=== PATIENT | male | born 1940 | race Caucasian/White ===

== ENCOUNTER 2018-01-11 15:22 | Observation (INO) | payer OTHER ==
--- OUTSIDE RECORDS SUMMARY | 2018-01-11 15:28 | XMS REPORT | Clinical Summary ---
:1940 Author Organization [facility] Address [address] [place] [address] Phone Care Team Providers Name Role Phone Unavailable Primary Care Provider Unavailable Allergies Active Allergy Reactions Severity Noted Date Comments Penicillins Rash Low 12/27/2015 As a child Current Medications Prescription Sig. Disp. Refills Start Date End Date Status aspirin 81 MG EC tablet Take 81 mg by Active mouth daily. atorvastatin (LIPITOR) 20 Take 20 mg by Active MG tablet mouth daily. latanoprost (XALATAN) 1 drop nightly. Active 0.005 % ophthalmic solution lisinopril Take 10 mg by Active (PRINIVIL,ZESTRIL) 10 MG mouth daily. tablet ranitidine (ZANTAC) 150 MG Take 150 mg by Active tablet mouth 2 (two) times daily. rivaroxaban (XARELTO) 20 Take by mouth Active mg Tab tablet daily. cetirizine (ZYRTEC) 10 MG Take 10 mg by Active tablet mouth daily. Active Problems Not on file Social History Tobacco Use Types Packs/Day Years Used Date Former Smoker Quit: 12/26/1965 Alcohol Use Drinks/Week oz/Week Comments Yes 7 Glasses of wine 6.0 3 Cans of beer Sex Assigned at Date Recorded Not on file Last Filed Vital Signs Not on file Plan of Treatment Not on file Implants Implanted Type Area Government Affairs Manager Device Expiration Date Model / Identifier Serial / Lot Sclera Left: Eye [employer] 11/15/2016 / Implanted: Qty: 1 on 12/28/2015 by Xiomara Cook MD [place] [id number] / [id number] Results Not on fileafter 01/10/2017
--- OUTSIDE RECORDS SUMMARY | 2018-01-11 15:28 | XMS REPORT | Clinical Summary ---
:1940 Author Organization [facility] Address [address] [place] [address] Care Team Providers Name Role Phone Francisco Multani MD Primary Care Provider Allergies Active Allergy Reactions Severity Noted Date Comments Levofloxacin Other (See Comments) 04/15/2016 Tendon pain Penicillins Rash Low 12/27/2015 As a child Current Medications Prescription Sig. Disp. Refills Start Date End Date Status aspirin (ECOTRIN) 81 MG Take 81 mg by Active enteric coated tablet mouth. atorvastatin (LIPITOR) 20 Take 20 mg by Active MG tablet mouth. cetirizine (ZyrTEC) 10 MG Take 10 mg by Active tablet mouth. latanoprost (XALATAN) 1 drop. Active 0.005 % ophthalmic solution lisinopril Take 10 mg by Active (PRINIVIL,ZESTRIL) 10 mg mouth. tablet ranitidine (ZANTAC) 150 MG Take 150 mg by Active tablet mouth. rivaroxaban (XARELTO) 20 Take by mouth. Active mg tablet loratadine (CLARITIN) 10 Take 10 mg by Active mg tablet mouth daily. Active Problems Not on file Social History Tobacco Use Types Packs/Day Years Used Date Never Smoker Sex Assigned at Date Recorded Not on file Last Filed Vital Signs Not on file Plan of Treatment Health Maintenance Due Date Last Done Comments SHINGRIX VACCINE (#1) 1989 ZOSTER VACCINE 1999 PNEUMOCOCCAL POLYSACCHARIDE VACCINE AGE 65 AND OVER 02/10/2004 PNEUMOCOCCAL-13 02/10/2004 INFLUENZA VACCINE 01/20/2018 Results Not on fileafter 01/10/2017 Insurance Payer Benefit Plan / Group Subscriber ID Type Phone Address AETNA MEDICARE AETNA MEDICARE HMO/PPO [facility] xxxxxxxx HMO Home: [address] [phone] [place] [id number]
--- OUTSIDE RECORDS SUMMARY | 2018-01-11 15:29 | XMS REPORT | Continuity of Care Document ---
:1939 Author Organization Interface Problems Problem Status Onset Classification Date Comments Source Date Reported BRONCHITIS, ACUTE Active Condition 10/30/2014 Medical 015 Group BACK PAIN, CHRONIC Active Condition 10/30/2014 Medical 015 Group BENIGN PAROXYSMAL Active Condition 10/30/2014 Medical POSITIONAL VERTIGO 014 Group BODY MASS INDEX Active Condition 10/30/2014 Medical 26.0-26.9, ADULT 014 Group WOUND, FOOT Inactive Condition 10/30/2014 Medical 014 Group USP MEDICATION Active Condition 10/30/2014 Medical USE NEC 014 Group DERMATITIS, CONTACT, Inactive Condition 10/30/2014 Medical NOS 014 Group ATRIAL FIBRILLATION Active Condition 10/30/2014 Medical 013 Group ABDOMINAL PAIN, Inactive Condition 10/30/2014 Medical GENERALIZED 013 Group HYPERTENSION Active Condition 02/18/2013 [facility] ALLERGIC RHINITIS Active Condition 02/18/2013 [facility] CARCINOMA, PROSTATE Active Condition 10/30/2014 Medical 012 Group CORONARY Active Condition 10/30/2014 Medical ATHEROSCLEROSIS OF 960 Group [place] CORONARY ARTERY HYPERTENSIVE HEART Active Condition 10/30/2014 Medical DISEASE, BENIGN, 960 Group WITHOUT HEART FAILURE GERD Active Condition 02/18/2013 [facility] GREATER TROCHANTERIC Active Condition 02/18/2013 [facility] BURSITIS, LEFT [facility] GREATER TROCHANTERIC Active Condition 02/18/2013 [facility] BURSITIS, RIGHT [facility] HIP PAIN, BILATERAL Active Condition 02/18/2013 [facility] LATERAL MENISCUS TEAR, Active Condition 02/18/2013 [facility] NECK PAIN Active Condition 02/18/2013 [facility] BACK PAIN, LUMBAR Active Condition 02/18/2013 [facility] OSTEOARTHRITIS, HIPS, Active Condition 02/18/2013 [facility] BILATERAL [facility] KNEE PAIN, LEFT Active Condition 02/18/2013 [facility] MUSCLE STRAIN, RIGHT Active Condition 02/18/2013 [facility] KNEE PAIN, RIGHT Active Condition 02/18/2013 [facility] OSTEOARTHRITIS, KNEE, Active Condition 02/18/2013 [facility] LUMBAR RADICULOPATHY, Active Condition 02/18/2013 [facility] CAD Inactive Condition 10/30/2014 Medical Group HYPERCHOLESTEROLEMIA Active Condition 10/30/2014 [facility] ESSENTIAL HYPERTENSION Active Condition 10/30/2014 Medical Group CORONARY HEART DISEASE Active Condition 02/15/2014 Medical Group HYPERTENSION Active Condition 02/15/2014 Medical Group Medications Medication Details Route Status Patient Ordering Order Source Instructions Provider Date LEVAQUIN 500 MG TABS 1 tablet PO Active daily for 10 2014 Medical days Group CHERATUSSIN AC 100-10 10 ml PO Active MG/5ML SYRP every 12 2014 Medical hours PRN Group cough BENZONATATE 100 MG 1-2 capsules Active CAPS PO TID PRN 2015 Medical cough Group NITROSTAT 0.3 MG SUBL 1 sl q5min Active prn chest 2015 Medical pain Group LOTRISONE 1-0.05 % apply to No Longer CREA rash bid Active 2013 Medical Group METOPROLOL SUCCINATE TAKES ONE Active ER 25 MG [id number] TAB DAILY PO 2013 Medical Group LORADAMED 10 MG TABS ONE TAB No Longer DAILY PO FOR Active 2013 Medical ALLERGYS Group METOPROLOL SUCCINATE TAKES ONE No Longer ER 25 MG [id number] TAB DAILY PO Active 2014 Medical Group SOTALOL HCL 80 MG ONE PO BID No Longer TABS Active 2013 Medical Group XARELTO 20 MG TABS one daily Active 2012 Medical Group POTASSIUM CHLORIDE 20 1 tablespoon No Longer MEQ/15ML (10%) SOLN daily mixed Active 2012 Medical in juice Group XALATAN 0.005 % SOLN 1 gtt both Active eyes qd 2012 Medical Group GABAPENTIN 300 MG 1 po tid No Longer CAPS Active 2012 Medical Group TIZANIDINE HCL 4 MG 1 po qhs No Longer CAPS Active 2013 Medical Group TIZANIDINE HCL 4 MG 1 po qhs No Longer CAPS Active 2013 Medical Group GABAPENTIN 300 MG 1 po tid No Longer CAPS Active 2013 Medical Group GABAPENTIN 300 MG 1 po tid No Longer CAPS Active 2013 Medical Group CELEBREX 200 MG CAPS 1 PO QD Active 11/01/ [facility] 2013 [facility] ATENOLOL 50 MG TABS No Longer Active 2013 Medical Group ATENOLOL 50 MG TABS No Longer Active 2013 Medical Group ATENOLOL 50 MG TABS No Longer Active 2013 Medical Group ECOTRIN LOW STRENGTH one every Active 81 MG TBEC other day 2013 Medical Group CLARITIN 10 MG TABS one daily if Active needed 2013 Medical Group CLARITIN 10 MG TABS one daily if Active needed 2013 Medical Group DUEXIS 800-26.6 MG 1 po q 8 hrs Inactive 05/04/ [facility] TABS prn pain 2012 [facility] FLEXERIL 10 MG TABS 1 PO TID prn Inactive 05/04/ [facility] muscle spasm 2012 [facility] DUEXIS 800-26.6 MG 1 po q 8 hrs Inactive [facility] TABS prn pain 2012 [facility] FLEXERIL 10 MG TABS 1 PO TID prn Inactive [facility] muscle spasm 2012 [facility] ALEVE 220 MG TABS one po BID No Longer Active 2011 Medical Group LISINOPRIL TABS per other Active 03/17/ [facility] Pina 2012 [facility] HYDROCHLOROTHIAZIDE per other Active 03/17/ [facility] FELICIANO M.D. 2012 [facility] RANITIDINE HCL 150 MG per other Active 03/17/ [facility] FELICIANO M.D. 2012 [facility] ATORVASTATIN CALCIUM per other Active 03/17/ [facility] TABS M.Ashanti 2012 [facility] CALCIUM TABS per other Active 03/17/ [facility] Pina 2012 [facility] ASPIRIN EC LOW DOSE per other Active 03/17/ [facility] 81 MG TBEC M.D. 2012 [facility] UNKNOWN ALLERGY OTC Active 03/17/ [facility] MEDICATION 2012 [facility] LISINOPRIL TABS per other Active 03/17/ Michael MRene 2012 [facility] HYDROCHLOROTHIAZIDE per other Active 03/17/ [facility] CAPS M.Ashanti 2012 [facility] RANITIDINE HCL 150 MG per other Active 03/17/ [facility] CAPS M.[place] 2012 [facility] ATORVASTATIN CALCIUM per other Active Michael TABS M.D. 2012 [facility] CALCIUM TABS per other Active 03/17/ [facility] M.Ashanti 2012 [facility] ASPIRIN EC LOW DOSE per other Active [facility] 81 MG TBEC M.D. 2012 [facility] UNKNOWN ALLERGY OTC Active Michael MEDICATION 2012 [facility] RANITIDINE HCL 150 MG 1 tab twice Active TABS daily Medical Group LIPITOR 20 MG TABS 1 tab daily Active Medical Group LISINOPRIL-HYDROCHLOR 1 tab daily Active OTHIAZIDE 20-12.5 MG Medical TABS Group LISINOPRIL-HYDROCHLOR 1 tab daily Active OTHIAZIDE 20-12.5 MG Medical TABS Group RANITIDINE HCL 150 MG 1 tab twice Active TABS daily Medical Group LISINOPRIL-HYDROCHLOR 1 tab daily Active OTHIAZIDE 20-12.5 MG Medical TABS Group RANITIDINE HCL 150 MG 1 tab twice Active TABS daily Medical Group Allergies, Adverse Reactions, Alerts Substance Category Reaction Severity Reaction Status Date Comments Source type Reported PENICILLIN Drug PENICILLIN [place] allergy 2 [facility] SEASONAL Environment SEASONAL [place] ALLERGIES al allergy ALLERGIES 2 [facility] CIPRO Drug CIPRO allergy 3 Medical Group FLUOROQUINOL Drug FLUOROQUINO [place] ONES allergy LONES [facility] ZETIA Drug ZETIA allergy Medical Group CRESTOR Drug CRESTOR allergy Medical Group PCN Drug PCN allergy Medical Group Immunizations Immunization Date Given Site Status Last Comments Source Updated dT (Diphtheria 03/06/2014 completed Medical and Tetanus) Group immunization for children, #1 dT (Diphtheria 03/06/2014 completed Medical and Tetanus) Group booster given influenza 04/23/2013 completed Medical immunization (Flu Group Vax) has been administered heptavalent 02/18/2013 completed [place] pneumococcal [facility] conjugate vaccine (7-valent) #1 heptavalent 02/18/2013 completed [place] pneumococcal [facility] conjugate vaccine (7-valent) #2 heptavalent 11/22/2012 completed [facility] pneumococcal [facility] conjugate vaccine (7-valent) #1 heptavalent 11/22/2012 completed [facility] pneumococcal [facility] conjugate vaccine (7-valent) #2 heptavalent 11/01/2012 completed [facility] pneumococcal [facility] conjugate vaccine (7-valent) #1 heptavalent 11/01/2012 completed [place] pneumococcal [facility] conjugate vaccine (7-valent) #2 influenza 03/31/2012 completed Medical immunization (Flu Group Vax) has been administered Results Order Name Results Value Reference Date Interpretation Comments Source Range Chemistry SODIUM 138 135 - 143 09/25/ mmol/L 2014 Medical Group Chemistry POTASSIUM 3.9 3.3 - 5.0 09/25/ mmol/L 2014 Medical Group Chemistry ALBUMIN 3.9 3.5 - 5.0 09/25/ g/dL 2014 Medical Group Chemistry CALCIUM 9.3 8.6 - 9.8 mg/dL 2014 Medical Group Chemistry CREATININE 1.07 0.46 - 1.20 mg/dL 2014 Medical Group Chemistry BUN 15 10 - 22 mg/dL 2014 Medical Group Chemistry ALK PHOS 83 U/L 32 - 96 2014 Medical Group Chemistry SGOT (AST) 25 U/L 10 - 42 2014 Medical Group Chemistry SGPT (ALT) 21 U/L 11 - 43 2014 Medical Group Chemistry CHOLESTEROL 140 120 - 200 mg/dl 2014 Medical Group Chemistry HDL 42 26 - 62 mg/dl 2014 Medical Group Chemistry LDL 74 0 - 130 mg/dl 2014 Medical Group Chemistry SODIUM 140 135 - 143 03/23/ [facility] mmol/L 2013 Medical Group Chemistry POTASSIUM 4.0 3.3 - 5.0 03/23/ MH mmol/L 2013 Medical Group Chemistry ALBUMIN 3.7 3.5 - 5.0 03/23/ MH g/dL 2013 Medical Group Chemistry CALCIUM 9.5 8.6 - 9.8 03/23/ MH mg/dL 2013 Medical Group Chemistry CREATININE 0.82 0.46 - 1.20 03/23/ MH mg/dL 2013 Medical Group Chemistry BUN 14 10 - 22 03/23/ MH mg/dL 2013 Medical Group Chemistry ALK PHOS 65 U/L 32 - 96 2013 Medical Group Chemistry SGOT (AST) 23 U/L 10 - 42 2013 Medical Group Chemistry SGPT (ALT) 15 U/L 11 - 43 2013 Medical Group Chemistry CHOLESTEROL 139 120 - 200 mg/dl 2013 Medical Group Chemistry HDL 47 26 - 62 mg/dl 2013 Medical Group Chemistry LDL 79 0 - 130 mg/dl 2013 Medical Group Chemistry TSH 2.23 0.34 - 5.60 uIU/mL 2013 Medical Group Hematology HGB 13.4 12.3 - 17.3 g/dL 2013 Medical Group Hematology HCT 39.6 % 36.7 - 50.5 2013 Medical Group Chemistry TRIGLYCERIDE 104 mg/dl 2013 Medical Group Chemistry LDL 93 09/22/ mg/dl 2013 Medical Group Chemistry TRIGLYCERIDE 104 09/22/ mg/dl 2013 Medical Group Chemistry LDL 93 09/22/ mg/dl 2013 Medical Group Chemistry SODIUM 139 135 - 143 mmol/L 2013 Medical Group Chemistry POTASSIUM 3.7 3.3 - 5.0 09/22/ mmol/L 2013 Medical Group Chemistry SODIUM 139 135 - 143 09/22/ mmol/L 2013 Medical Group Chemistry POTASSIUM 3.7 3.3 - 5.0 09/22/ mmol/L 2013 Medical Group Chemistry ALBUMIN 4.0 3.5 - 5.0 g/dL 2013 Medical Group Chemistry CALCIUM 9.5 8.6 - 9.8 mg/dL 2013 Medical Group Chemistry CREATININE 0.86 0.46 - 1.20 mg/dL 2013 Medical Group Chemistry BUN 18 10 - 22 mg/dL 2013 Medical Group Chemistry ALK PHOS 85 U/L 32 - 96 2013 Medical Group Chemistry SGOT (AST) 21 U/L 10 - 42 2013 Medical Group Chemistry SGPT (ALT) 15 U/L 11 - 43 2013 Medical Group Chemistry CHOLESTEROL 154 120 - 200 mg/dl 2013 Medical Group Chemistry HDL 40 26 - 62 mg/dl 2013 Medical Group Chemistry SODIUM 139 135 - 143 mmol/L 2012 Medical Group Chemistry POTASSIUM 3.7 3.3 - 5.0 mmol/L 2012 Medical Group Chemistry SODIUM 139 135 - 143 mmol/L 2012 Medical Group Chemistry POTASSIUM 3.7 3.3 - 5.0 mmol/L 2012 Medical Group Chemistry ALBUMIN 4.0 3.5 - 5.0 g/dL 2012 Medical Group Chemistry CALCIUM 9.5 8.6 - 9.8 mg/dL 2012 Medical Group Chemistry CREATININE 0.86 0.46 - 1.20 mg/dL 2012 Medical Group Chemistry BUN 18 10 - 22 mg/dL 2012 Medical Group Chemistry ALK PHOS 85 U/L 32 - 96 2012 Medical Group Chemistry SGOT (AST) 21 U/L 10 - 42 2012 Medical Group Chemistry SGPT (ALT) 15 U/L 11 - 43 2012 Medical Group Chemistry CHOLESTEROL 154 120 - 200 mg/dl 2012 Medical Group Chemistry HDL 40 26 - 62 mg/dl 2012 Medical Group Chemistry PSA 4.3 ng/mL 2010 Medical Group Chemistry PSA 4.3 ng/mL 2010 Medical Group Vital Signs Vital Sign Value Date Comments Source Weight 208 10/30/2014 Medical Group Temperature Oral (F) 99.1 F 10/30/2014 Medical Group Respitory Rate 16 10/30/2014 Medical Group Systolic (mm Hg) 116 10/30/2014 Medical Group Diastolic (mm Hg) 79 10/30/2014 Medical Group Heart Rate 88 10/30/2014 Medical Group Weight 203 10/02/2014 Medical Group Temperature Oral (F) 97 F 10/02/2014 Medical Group Heart Rate 60 10/02/2014 Medical Group Systolic (mm Hg) 120 10/02/2014 Medical Group Diastolic (mm Hg) 70 10/02/2014 Medical Group Weight 191 06/07/2014 Medical Group Temperature Oral (F) 98.0 F 06/07/2014 Medical Group Systolic (mm Hg) 140 06/07/2014 Medical Group Diastolic (mm Hg) 80 06/07/2014 Medical Group Heart Rate 72 06/07/2014 Medical Group Respitory Rate 12 06/07/2014 Medical Group Weight 197 03/31/2014 Medical Group Temperature Oral (F) 97 F 03/31/2014 Medical Group Heart Rate 64 03/31/2014 [facility] Systolic (mm Hg) 130 03/31/2014 [facility] Diastolic (mm Hg) 70 03/31/2014 Medical Group Weight 198.8 03/06/2014 Medical Group Temperature Oral (F) 97.3 F 03/06/2014 Medical Group Respitory Rate 16 03/06/2014 Medical Group Heart Rate 60 03/06/2014 [facility] Systolic (mm Hg) 132 03/06/2014 [facility] Diastolic (mm Hg) 84 03/06/2014 Medical Group Weight 199 02/13/2014 Medical Group Temperature Oral (F) 97 F 02/13/2014 Medical Group Heart Rate 60 02/13/2014 [facility] Systolic (mm Hg) 140 02/13/2014 [facility] Diastolic (mm Hg) 70 02/13/2014 Medical Group Weight 204 09/29/2013 Medical Group Heart Rate 60 09/29/2013 Medical Group Systolic (mm Hg) 130 09/29/2013 Medical Group Diastolic (mm Hg) 60 09/29/2013 Medical Group Weight 199.2 06/27/2013 Medical Group Respitory Rate 18 06/27/2013 Medical Group Systolic (mm Hg) 126 06/27/2013 Medical Group Diastolic (mm Hg) 70 06/27/2013 Medical Group Heart Rate 60 06/27/2013 Medical Group Weight 194 05/30/2013 Medical Group Systolic (mm Hg) 130 05/30/2013 Medical Group Diastolic (mm Hg) 80 05/30/2013 Medical Group Heart Rate 52 05/30/2013 Medical Group Weight 194 03/31/2013 Medical Group Heart Rate 64 03/31/2013 [facility] Systolic (mm Hg) 120 03/31/2013 Medical Group Diastolic (mm Hg) 70 03/31/2013 Medical Group Weight 217 09/22/2012 Medical Group Heart Rate 68 09/22/2012 Medical Group Systolic (mm Hg) 140 09/22/2012 [facility] Diastolic (mm Hg) 68 09/22/2012 Medical Group Weight 210.4 08/13/2012 Medical Group Temperature Oral (F) 98 F 08/13/2012 Medical Group Respitory Rate 16 08/13/2012 Medical Group Heart Rate 72 08/13/2012 Medical Group Systolic (mm Hg) 140 08/13/2012 Medical Group Diastolic (mm Hg) 80 08/13/2012 Medical Group Weight 212 07/12/2012 Medical Group Heart Rate 60 07/12/2012 Medical Group Systolic (mm Hg) 140 07/12/2012 Medical Group Diastolic (mm Hg) 80 07/12/2012 Medical Group Height 72 03/18/2012 [facility] Weight 200 03/18/2012 [facility] Heart Rate 52 03/18/2012 [facility] Systolic (mm Hg) 140 03/18/2012 [facility] Diastolic (mm Hg) 69 03/18/2012 [facility] Height 72 03/11/2012 Medical Group Weight 202 03/11/2012 Medical Group Heart Rate 64 03/11/2012 Medical Group Systolic (mm Hg) 130 03/11/2012 Medical Group Diastolic (mm Hg) 64 03/11/2012 Medical Group Encounters Location Location Encounter Encounter Reason Attending ADM IA Status Source Details Type Number For Provider Date Date Visit [place] [facility] [id number] Wayne 03/18 03/18 [place] [facility] Visit 6450 Darya DOE /2011 [facility] [place] [facility] [id number] Wayne 05/04 05/04 [place] [facility] Visit 7580 Darya DOE /2011 [facility] [place] [facility] [id number] Wayne 11/01 11/01 [place] [facility] Visit 6640 Darya DOE [facility] [place] [facility] [id number] Wayne 11/22 11/22 [place] [facility] Visit 7230 Darya DOE [facility] [place] [facility] [id number] Wayne 02/18 02/18 [place] [facility] Visit 6660 Darya DOE [facility] Office [id number] Francisco 02/13 02/13 [facility] Medical Visit 8360 Nerissa, Medical Abran Castro MD Group Internal Med [facility] Lab Report [id number] Francisco 02/15 02/15 [place] 1410 [address]er[address], Medical [facility] [place] [facility] [id number] Art 03/06 03/06 [place] Medical Visit 2110 Dominic, /2013 Rena Burks MD [facility] Lab Report [id number] Art 03/23 03/23 [place] Medical 0560 Hugodul[address]etter, /2013 Medical Abran Castro MD Group Internal Med [facility] South Office [id number] Art 03/31 03/31 [place] Medical Visit 4290 Dominic, /2013 Medical Abran Castro MD Group Internal Med [facility] Office [id number] Art 06/07 06/07 [place] Medical Visit 7080 Dominic, /2013 Medical Andrew DOE Group Cardiology [facility] Lab Report [id number] Art 09/25 09/25 [place] Medical 9310 Dominic, /2014 Medical Abran Castro MD Group Internal Med [facility] Office [id number] Francisco 10/02 10/02 [place] Medical Visit 5670 Nerissa, /2014 Medical Abran Castro MD [facility] Office [id number] Laure 10/30 10/30 [place] Medical Visit 7470 WARNER Trinh /2014 Rena URIOSTEGUI-C [facility] Procedures Procedure Code Date Perfomer Comments Source smoking/tobacco 14 10/02/2014 yes Medical cessation, patient Group education and counseling smoking/tobacco 14 06/07/2014 yes Medical cessation, patient Group education and counseling smoking/tobacco 14 03/31/2014 yes Medical cessation, patient Group education and counseling smoking/tobacco 14 03/06/2014 yes Medical cessation, patient Group education and counseling genitourinary review [id number] 05/04/2012 denies loss of [facility], E&M urine,frequent & Joint urination,nigh t time urination,pain ful urination,bloo d in urine, or kidney stones genitourinary review [id number] 03/18/2012 denies loss of [facility], E&M urine,frequent & Joint urination,nigh t time urination,pain ful urination,bloo d in urine, or kidney stones genitourinary review [id number] 03/17/2012 denies loss of [facility], E&M urine,frequent & Joint urination,nigh t time urination,pain ful urination,bloo d in urine, or kidney stones
--- OUTSIDE RECORDS SUMMARY | 2018-01-11 15:30 | XMS REPORT | Continuity of Care Document ---
:1940 Author Organization [facility] Care Team Providers Name Role Phone Wayne Lackey MD Unavailable Insurance Providers Payer name Policy type / Coverage type Policy ID Covered democrat ID Policy Lopez [employer] Medicare Encounters Encounter Performer Location Date Office Visit Wayne Lackey MD [facility] Nov 22, 2012 Allergies, Adverse Reactions, Alerts Type Substance Reaction Status Drug allergy PENICILLIN Active Environmental allergy SEASONAL ALLERGIES Active Drug allergy FLUOROQUINOLONES Active Problems Problem Effective Dates Problem Status HYPERTENSION Mar 17, 2012 Active HYPERCHOLESTEROLEMIA Mar 17, 2012 Active ALLERGIC RHINITIS Mar 17, 2012 Active GERD Active GREATER TROCHANTERIC BURSITIS, LEFT Active GREATER TROCHANTERIC BURSITIS, RIGHT Active HIP PAIN, BILATERAL Active LATERAL MENISCUS TEAR, LEFT Active NECK PAIN Active BACK PAIN, LUMBAR Active OSTEOARTHRITIS, HIPS, BILATERAL Active KNEE PAIN, LEFT Active MUSCLE STRAIN, RIGHT CALF Active KNEE PAIN, RIGHT Active OSTEOARTHRITIS, KNEE, RIGHT Active Medications Medication Instructions Start Date Status LISINOPRIL TABS per other M.D. Mar 17, 2012 Active HYDROCHLOROTHIAZIDE CAPS per other M.D. Mar 17, 2012 Active RANITIDINE HCL 150 MG CAPS per other M.D. Mar 17, 2012 Active ATORVASTATIN CALCIUM TABS per other M.D. Mar 17, 2012 Active CALCIUM TABS per other M.D. Mar 17, 2012 Active ASPIRIN EC LOW DOSE 81 MG TBEC per other M.D. Mar 17, 2012 Active UNKNOWN ALLERGY MEDICATION OTC Mar 17, 2012 Active DUEXIS 800-26.6 MG TABS 1 po q 8 hrs prn pain May 04, 2012 Inactive FLEXERIL 10 MG TABS 1 PO TID prn muscle spasm May 04, 2012 Inactive CELEBREX 200 MG CAPS 1 PO QD November 01, 2012 Active Immunizations Vaccine Date Status heptavalent pneumococcal conjugate vaccine (7-valent) #1 November 01, 2012 completed heptavalent pneumococcal conjugate vaccine (7-valent) #2 November 01, 2012 completed heptavalent pneumococcal conjugate vaccine (7-valent) #1 Nov 22, 2012 completed heptavalent pneumococcal conjugate vaccine (7-valent) #2 Nov 22, 2012 completed Vital Signs Date Description Test Result Mar 18, 2012 height E&M - 8302-2 HEIGHT 72 in Mar 18, 2012 weight E&M - 3141-9 WEIGHT 200 lb Mar 18, 2012 pulse rate E&M - 8867-4 PULSE RATE 52 /min Mar 18, 2012 blood pressure, systolic - 8480-6 BP SYSTOLIC 140 mm Hg Mar 18, 2012 blood pressure, diastolic - 8462-4 BP DIASTOLIC 69 mm Hg
--- OUTSIDE RECORDS SUMMARY | 2018-01-11 15:30 | XMS REPORT | Continuity of Care Document ---
:1940 Author Organization [facility] Care Team Providers Name Role Phone Wayne Lackey MD Unavailable Insurance Providers Payer name Policy type / Coverage type Policy ID Covered alliance party ID Policy Lopez Aetna Medicare Encounters Encounter Performer Location Date Office Visit Wayne Lackey MD [place] [facility] Feb 18, 2013 Allergies, Adverse Reactions, Alerts Type Substance Reaction [...] PAIN, RIGHT Active OSTEOARTHRITIS, KNEE, RIGHT Active LUMBAR RADICULOPATHY, RIGHT Active Medications Medication Instructions Start Date [...] vaccine (7-valent) #2 Nov 22, 2012 completed heptavalent pneumococcal conjugate vaccine (7-valent) #1 Feb 18, 2013 completed heptavalent pneumococcal conjugate vaccine (7-valent) #2 Feb 18, 2013 completed Vital Signs Date Description Test Result [...]
--- OUTSIDE RECORDS SUMMARY | 2018-01-11 15:30 | XMS REPORT | Continuity of Care Document ---
:1939 Author Organization [facility] Care Team Providers Name Role Phone MD Multani John Unavailable Unavailable Insurance Providers Payer name Policy type / Policy ID Covered republican ID Policy Lopez Coverage type AETNA SECONDARY TO MEDICARE MEDICARE PRIMARY MEDIC[place] [employer] AETNA (MEDICARE SUPPLEMENT) AETNA (MEDICARE SUPPLEMENT) [place] AETNA (MEDICARE SUPPLEMENT) AETNA (MEDICARE SUPPLEMENT) AETNA (MEDICARE REPLACEMENT HMO) [place]: [employer] AETNA (MEDICARE SUPPLEMENT) AETNA (MEDICARE REPLACEMENT HMO) AETNA (MEDICARE REPLACEMENT PPO) [place]: [place] AETNA (MEDICARE SUPPLEMENT) AETNA (MEDICARE REPLACEMENT PPO) [place]: [place] AETNA (MEDICARE SUPPLEMENT) [place]: [place] AETNA (MEDICARE SUPPLEMENT) [place]: [employer] AETNA (MEDICARE SUPPLEMENT) [place]: [employer] AETNA (MEDICARE REPLACEMENT HMO) AETNA (MEDICARE SUPPLEMENT) MEDIC[place]: [employer] AETNA (MEDICARE REPLACEMENT HMO) AETNA (MEDICARE SUPPLEMENT) MEDIC[place]: [employer] AETNA (MEDICARE REPLACEMENT HMO) AETNA (MEDICARE SUPPLEMENT) [place]IC[place]: [employer] AETNA (MEDICARE REPLACEMENT HMO) AETNA (MEDICARE SUPPLEMENT) MEDIC[place]: [employer] AETNA (MEDICARE REPLACEMENT HMO) AETNA (MEDICARE SUPPLEMENT) MEDIC[place]: [employer] AETNA (MEDICARE REPLACEMENT HMO) AETNA (MEDICARE SUPPLEMENT) [place]: [employer] AETNA (MEDICARE REPLACEMENT HMO) AETNA (MEDICARE SUPPLEMENT) [place]IC[place]: [employer] AETNA (MEDICARE REPLACEMENT HMO) AETNA (MEDICARE SUPPLEMENT) [place]: [employer] AETNA (MEDICARE REPLACEMENT HMO) AETNA (MEDICARE SUPPLEMENT) Encounters Encounter Performer Location Date Lab Report Francisco Multani MD [facility] - Feb 15, 2014 [place] Allergies, Adverse Reactions, Alerts Type Substance Reaction Status Drug allergy ZETIA achy Active Drug allergy CRESTOR achy Active Drug allergy CIPRO Inactive Drug allergy PCN rash as a child Active Problems Problem Effective Dates Problem Status CAD Active HYPERCHOLESTEROLEMIA Active ESSENTIAL HYPERTENSION Active CARCINOMA, PROSTATE Mar 11, 2012 Active CORONARY HEART DISEASE Active HYPERTENSION Active ABDOMINAL PAIN, GENERALIZED Aug 13, 2012 Active ATRIAL FIBRILLATION May 17, 2013 Active DERMATITIS, CONTACT, NOS Feb 13, 2014 Active Procedures Date Description Comments Mar 11, 2012 smoking status former smoker May 30, 2013 smoking status former smoker Jun 27, 2013 smoking status former smoker Feb 13, 2014 smoking status Former smoker Medications Medication Instructions Start Date Status RANITIDINE HCL 150 MG TABS 1 tab twice daily Active LIPITOR 20 MG TABS 1 tab daily Active LISINOPRIL-HYDROCHLOROTHIAZIDE 1 tab daily Active 20-12.5 MG TABS ATENOLOL 50 MG TABS Inactive ECOTRIN LOW STRENGTH 81 MG TBEC one every other day Jun 23, 2012 Active CLARITIN 10 MG TABS one daily if needed Jun 23, 2012 Active XALATAN 0.005 % SOLN 1 gtt left eye qd Mar 31, 2013 Active ALEVE 220 MG TABS one po BID Apr 23, 2012 Inactive XARELTO 20 MG TABS one daily May 24, 2013 Active POTASSIUM CHLORIDE 20 MEQ/15ML 1 tablespoon daily mixed in May 24, 2013 Inactive (10%) SOLN juice SOTALOL HCL 80 MG TABS ONE PO BID Jun 27, 2013 Active GABAPENTIN 300 MG CAPS 1 po tid Mar 31, 2013 Inactive TIZANIDINE HCL 4 MG CAPS 1 po qhs Mar 31, 2013 Inactive METOPROLOL SUCCINATE ER 25 MG TAKES ONE TAB DAILY PO Sep 29, 2013 Active [id number] LORADAMED 10 MG TABS ONE TAB DAILY PO FOR ALLERGYS Sep 29, 2013 Active LOTRISONE 1-0.05 % CREA apply to rash bid Feb 13, 2014 Active Immunizations Vaccine Date Status influenza immunization (Flu Vax) has been administered Mar 31, 2012 completed influenza immunization (Flu Vax) has been administered Apr 23, 2013 completed Vital Signs Date Description Test Result Mar 11, 2012 height E&M HEIGHT 72 in Mar 11, 2012 weight E&M WEIGHT 202 lb Mar 11, 2012 pulse rate E&M PULSE RATE 64 /min Mar 11, 2012 blood pressure, systolic BP SYSTOLIC 130 mm Hg Mar 11, 2012 blood pressure, diastolic BP DIASTOLIC 64 mm Hg Jul 12, 2012 weight E&M WEIGHT 212 lb Jul 12, 2012 pulse rate E&M PULSE RATE 60 /min Jul 12, 2012 blood pressure, systolic, sitting, right arm BP SYS SIT R 140 null Jul 12, 2012 blood pressure, diastolic, sitting, right arm BP VILLA SIT R 80 mmHg Jul 12, 2012 blood pressure, systolic, sitting, left arm BP SYS SIT L 140 mm Hg Jul 12, 2012 blood pressure, diastolic, sitting, left arm BP VILLA SIT L 80 mm Hg Jul 12, 2012 blood pressure, systolic BP SYSTOLIC 140 mm Hg Jul 12, 2012 blood pressure, diastolic BP DIASTOLIC 80 mm Hg Aug 13, 2012 weight E&M WEIGHT 210.4 lb Aug 13, 2012 temperature E&M TEMPERATURE 98 deg f Aug 13, 2012 respiratory rate E&M RESP RATE 16 /min Aug 13, 2012 pulse rate E&M PULSE RATE 72 /min Aug 13, 2012 blood pressure, systolic BP SYSTOLIC 140 mm Hg Aug 13, 2012 blood pressure, diastolic BP DIASTOLIC 80 mm Hg Sep 22, 2012 weight E&M WEIGHT 217 lb Sep 22, 2012 pulse rate E&M PULSE RATE 68 /min Sep 22, 2012 blood pressure, systolic BP SYSTOLIC 140 mm Hg Sep 22, 2012 blood pressure, diastolic BP DIASTOLIC 68 mm Hg Mar 31, 2013 weight E&M WEIGHT 194 lb Mar 31, 2013 pulse rate E&M PULSE RATE 64 /min Mar 31, 2013 blood pressure, systolic BP SYSTOLIC 120 mm Hg Mar 31, 2013 blood pressure, diastolic BP DIASTOLIC 70 mm Hg May 30, 2013 weight E&M WEIGHT 194 lb May 30, 2013 blood pressure, systolic, sitting, left arm BP SYS SIT L 130 mm Hg May 30, 2013 blood pressure, diastolic, sitting, left arm BP VILLA SIT L 80 mm Hg May 30, 2013 pulse rate, sitting, left PULSE SIT L 52 /min May 30, 2013 blood pressure, systolic BP SYSTOLIC 130 mm Hg May 30, 2013 pulse rate E&M PULSE RATE 52 /min May 30, 2013 blood pressure, diastolic BP DIASTOLIC 80 mm Hg Jun 27, 2013 weight E&M WEIGHT 199.2 lb Jun 27, 2013 respiratory rate E&M RESP RATE 18 /min Jun 27, 2013 blood pressure, systolic, sitting, right arm BP SYS SIT R 126 null Jun 27, 2013 blood pressure, diastolic, sitting, right arm BP VILLA SIT R 70 mmHg Jun 27, 2013 blood pressure, systolic, sitting, left arm BP SYS SIT L 128 mm Hg Jun 27, 2013 blood pressure, diastolic, sitting, left arm BP VILLA SIT L 68 mm Hg Jun 27, 2013 pulse rate, sitting, left PULSE SIT L 60 /min Jun 27, 2013 blood pressure, systolic BP SYSTOLIC 126 mm Hg Jun 27, 2013 pulse rate E&M PULSE RATE 60 /min Jun 27, 2013 blood pressure, diastolic BP DIASTOLIC 70 mm Hg Sep 29, 2013 weight E&M WEIGHT 204 lb Sep 29, 2013 pulse rate E&M PULSE RATE 60 /min Sep 29, 2013 blood pressure, systolic BP SYSTOLIC 130 mm Hg Sep 29, 2013 blood pressure, diastolic BP DIASTOLIC 60 mm Hg Feb 13, 2014 weight E&M WEIGHT 199 lb Feb 13, 2014 temperature E&M TEMPERATURE 97 deg f Feb 13, 2014 pulse rate E&M PULSE RATE 60 /min Feb 13, 2014 blood pressure, systolic BP SYSTOLIC 140 mm Hg Feb 13, 2014 blood pressure, diastolic BP DIASTOLIC 70 mm Hg Results Date Description Test Name Value Reference Interpretation Status Mar 04, prostate specific PSA 4.3 ng/mL 2010 antigen Mar 31, sodium, serum SODIUM 139 mmol/L [phone] Mar 31, potassium, serum POTASSIUM 3.7 mmol/L 3.3-5.0 2012Mar 31, albumin, serum ALBUMIN 4.0 g/dL 3.5-5.0 2012Mar 31, calcium, serum CALCIUM 9.5 mg/dL 8.6-9.8 2012Mar 31, creatinine, serum CREATININE 0.86 mg/dL 0.46-1.20 2012Mar 31, urea nitrogen, blood BUN 18 mg/dL -22 2012Mar 31, alkaline phosphatase, ALK PHOS 85 U/L 32-96 2012 serum Mar 31, aspartate SGOT (AST) 21 U/L 10-42 2012 aminotransferase (SGOT), serum Mar 31, alanine SGPT (ALT) 15 U/L 11-43 2012 aminotransferase (SGPT), serum Mar 31, cholesterol, serum CHOLESTEROL 154 mg/dl [phone] Mar 31, HDL cholesterol, HDL 40 mg/dl 26-62 2012 serum Sep 22, sodium, serum SODIUM 139 mmol/L [phone] Sep 22, potassium, serum POTASSIUM 3.7 mmol/L 3.3-5.0 2013Sep 22, albumin, serum ALBUMIN 4.0 g/dL 3.5-5.0 2013Sep 22, calcium, serum CALCIUM 9.5 mg/dL 8.6-9.8 2013Sep 22, creatinine, serum CREATININE 0.86 mg/dL 0.46-1.20 2013Sep 22, urea nitrogen, blood BUN 18 mg/dL 10-22 2013Sep 22, alkaline phosphatase, ALK PHOS 85 U/L 32-96 2013 serum Sep 22, aspartate SGOT (AST) 21 U/L 10-42 2013 aminotransferase (SGOT), serum Sep 22, alanine SGPT (ALT) 15 U/L 43 2013 aminotransferase (SGPT), serum Sep 22, cholesterol, serum CHOLESTEROL 154 mg/dl [phone] Sep 22, HDL cholesterol, HDL 40 mg/dl 26-62 2013 serum
--- OUTSIDE RECORDS SUMMARY | 2018-01-11 15:30 | XMS REPORT | Continuity of Care Document ---
:1939 Author Organization [facility] Care Team Providers Name Role Phone MD Multani John Unavailable Unavailable Insurance Providers Payer name Policy type / Policy ID Covered republican ID Policy [place]op[place] Coverage type AETNA SECONDARY TO MEDICARE MEDICARE [...] (MEDICARE SUPPLEMENT) Encounters Encounter Performer Location Date Office Visit Francisco Multani MD [facility] [place] [facility] Feb 13, 2014 Med Allergies, Adverse Reactions, Alerts Type Substance Reaction [...] TAB DAILY PO Sep 29, 2013 Active [id number] LORADAMED 10 MG TABS ONE TAB DAILY [...] Mar 31, sodium, serum SODIUM 139 mmol/L [phone] Mar 31, potassium, serum POTASSIUM 3.7 mmol/L [...] Mar 31, cholesterol, serum CHOLESTEROL 154 mg/dl [phone] Mar 31, HDL cholesterol, HDL 40 mg/dl 26-62 2012 serum Sep 22, sodium, serum SODIUM 139 mmol/L [phone] Sep 22, potassium, serum POTASSIUM 3.7 mmol/L 3.3-5.0 2013Sep 22, albumin, serum ALBUMIN 4.0 g/dL 3.5-5.0 2013Sep 22, calcium, serum CALCIUM 9.5 mg/dL 8.6-9.8 2013Sep 22, creatinine, serum CREATININE 0.86 mg/dL 0.46-1.20 2013Sep 22, urea nitrogen, blood BUN 18 mg/dL 10-22 2013Sep 22, alkaline phosphatase, ALK PHOS 85 U/L 32-96 2013 serum Sep 22, aspartate SGOT (AST) 21 U/L 1042 2013 aminotransferase (SGOT), serum Sep 22, alanine SGPT (ALT) 15 U/L 43 2013 aminotransferase (SGPT), serum Sep 22, cholesterol, serum CHOLESTEROL 154 mg/dl [phone] Sep 22, HDL cholesterol, HDL 40 mg/dl -2013 serum
--- OUTSIDE RECORDS SUMMARY | 2018-01-11 15:30 | XMS REPORT | Continuity of Care Document ---
:1939 Author Organization [facility] Care Team Providers Name Role Phone Wayne Lackey MD Unavailable Unavailable Encounters Encounter Performer Location Date Office Visit Wayne Lackey MD [place] [facility] May 04, 2012 Allergies, Adverse Reactions, Alerts Type Substance Reaction Status Drug allergy PENICILLIN Active Environmental allergy SEASONAL ALLERGIES Active Drug allergy FLUOROQUINOLONES Inactive Problems Problem Effective Dates Problem Status HYPERTENSION Mar 17, 2012 Active HYPERCHOLESTEROLEMIA Mar 17, 2012 Active ALLERGIC RHINITIS Mar 17, 2012 Active GERD Inactive GREATER TROCHANTERIC BURSITIS, LEFT Inactive GREATER TROCHANTERIC BURSITIS, RIGHT Inactive HIP PAIN, BILATERAL Inactive LATERAL MENISCUS TEAR, LEFT Inactive NECK PAIN Inactive BACK PAIN, LUMBAR Inactive OSTEOARTHRITIS, HIPS, BILATERAL Inactive KNEE PAIN, LEFT Inactive Procedures Date Description Comments Mar 17, 2012 genitourinary review of systems, E&M denies loss of urine, frequent urination,night time urination,painful urination,blood in urine, or kidney stones Mar 18, 2012 genitourinary review of systems, E&M denies loss of urine, frequent urination,night time urination,painful urination,blood in urine, or kidney stones May 04, 2012 genitourinary review of systems, E&M denies loss of urine, frequent urination,night time urination,painful urination,blood in urine, or kidney stones Medications Medication Instructions Start Date Status LISINOPRIL [...] prn muscle spasm May 04, 2012 Inactive Vital Signs Date Description Test Result Mar [...]
--- OUTSIDE RECORDS SUMMARY | 2018-01-11 15:30 | XMS REPORT | Continuity of Care Document ---
:1939 Author Organization [facility] Care Team Providers Name Role Phone Wayne Lackey MD Unavailable Insurance Providers Payer name Policy type / Coverage type Policy ID Covered libertarian ID Policy Lopez Aetna Medicare Encounters Encounter Performer Location Date Office Visit Wayne Lackey MD [place] [facility] November 01, 2012 Allergies, Adverse Reactions, Alerts Type Substance [...] RIGHT CALF Active KNEE PAIN, RIGHT Active Medications Medication Instructions Start Date [...] vaccine (7-valent) #2 November 01, 2012 completed Vital Signs Date Description Test [...]
--- OUTSIDE RECORDS SUMMARY | 2018-01-11 15:30 | XMS REPORT | Continuity of Care Document ---
:1939 Author Organization [facility] Care Team Providers Name Role Phone Wayne Lackey MD Unavailable Unavailable Encounters Encounter Performer Location Date Office Visit Wayne Lackey MD [place] [facility] Mar 18, 2012 Allergies, Adverse Reactions, Alerts Type Substance Reaction Status Drug allergy PENICILLIN Active Environmental allergy SEASONAL ALLERGIES Active Drug allergy FLUOROQUINOLONES Inactive Problems Problem Effective Dates Problem Status HYPERTENSION Mar 17, 2012 Active HYPERCHOLESTEROLEMIA Mar 17, 2012 Active ALLERGIC RHINITIS Mar 17, 2012 Active GERD Inactive GREATER TROCHANTERIC BURSITIS, LEFT Inactive GREATER TROCHANTERIC BURSITIS, RIGHT Inactive HIP PAIN, BILATERAL Inactive Procedures Date Description Comments Mar 17, [...] ALLERGY MEDICATION OTC Mar 17, 2012 Active Vital Signs Date Description Test Result Mar [...]
--- OUTSIDE RECORDS SUMMARY | 2018-01-11 15:31 | XMS REPORT | Continuity of Care Document ---
:1939 Author Organization [facility] Care Team Providers Name Role Phone MD Dominic, Art Unavailable Unavailable Insurance Providers Payer name Policy type / Policy ID Covered alliance party ID Policy Lopez Coverage type AETNA SECONDARY [...] Encounters Encounter Performer Location Date Office Visit Liam Alfaro MD [facility] Allergies, Adverse Reactions, Alerts Type Substance Reaction Status Drug allergy ZETIA achy Active Drug allergy CRESTOR achy Active Drug allergy CIPRO Inactive Drug allergy PCN rash as a child Active Drug allergy CIPRO Inactive Problems Problem Effective Dates Problem Status CAD Inactive HYPERCHOLESTEROLEMIA Active ESSENTIAL HYPERTENSION Active CARCINOMA, PROSTATE Mar 11, 2012 Active CORONARY ATHEROSCLEROSIS OF [place] DEE-NI' CORONARY ARTERY Jun 22, 1959 Active HYPERTENSIVE HEART DISEASE, BENIGN, 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, 1959 Active FAILURE ABDOMINAL PAIN, GENERALIZED Aug 13, 2012 Inactive ATRIAL FIBRILLATION May 17, 2013 Active DERMATITIS, CONTACT, NOS Feb 13, 2014 Inactive WOUND, FOOT Mar 06, 2014 Active RN TRIAGE MEDICATION USE NEC Mar 06, 2014 Active Procedures Date Description Comments Mar 11, 2012 smoking status former smoker May 30, 2013 smoking status former smoker Jun 27, 2013 smoking status former smoker Feb 13, 2014 smoking status Former smoker Mar 06, 2014 smoking status Former smoker Mar 06, 2014 smoking/tobacco cessation, patient education and yes counseling Medications Medication Instructions Start Date Status RANITIDINE [...] May 24, 2013 Inactive (10%) SOLN juice GABAPENTIN 300 MG CAPS 1 po tid Mar 31, 2013 Inactive TIZANIDINE HCL 4 MG CAPS 1 po qhs Mar 31, 2013 Inactive SOTALOL HCL 80 MG TABS ONE PO BID Jun 27, 2013 Inactive METOPROLOL SUCCINATE ER 25 MG TAKES ONE TAB DAILY PO Sep 29, 2013 Inactive [id number] LORADAMED 10 MG TABS ONE TAB DAILY PO FOR ALLERGYS Sep 29, 2013 Inactive LOTRISONE 1-0.05 % CREA apply to rash bid Feb 13, 2014 Inactive Immunizations Vaccine Date Status influenza immunization (Flu Vax) has been administered Mar 31, 2012 completed influenza immunization (Flu Vax) has been administered Apr 23, 2013 completed dT (Diphtheria and Tetanus) booster given Mar 06, 2014 completed Vital Signs Date Description Test Result Mar 11, 2012 height E&M - 8302-2 HEIGHT 72 in Mar 11, 2012 weight E&M - 3141-9 WEIGHT 202 lb Mar 11, 2012 pulse rate E&M - 8867-4 PULSE RATE 64 /min Mar 11, 2012 blood pressure, systolic - 8480-6 BP SYSTOLIC 130 mm Hg Mar 11, 2012 blood pressure, diastolic - 8462-4 BP DIASTOLIC 64 mm Hg Jul 12, 2012 weight E&M - 3141-9 WEIGHT 212 lb Jul 12, 2012 pulse rate E&M - 8867-4 PULSE RATE 60 /min Jul 12, 2012 [...] Hg Jul 12, 2012 blood pressure, systolic - 8480-6 BP SYSTOLIC 140 mm Hg Jul 12, 2012 blood pressure, diastolic - 8462-4 BP DIASTOLIC 80 mm Hg Aug 13, 2012 weight E&M - 3141-9 WEIGHT 210.4 lb Aug 13, 2012 temperature E&M TEMPERATURE 98 deg f Aug 13, 2012 respiratory rate E&M - 9279-1 RESP RATE 16 /min Aug 13, 2012 pulse rate E&M - 8867-4 PULSE RATE 72 /min Aug 13, 2012 blood pressure, systolic - 8480-6 BP SYSTOLIC 140 mm Hg Aug 13, 2012 blood pressure, diastolic - 8462-4 BP DIASTOLIC 80 mm Hg Sep 22, 2012 weight E&M - 3141-9 WEIGHT 217 lb Sep 22, 2012 pulse rate E&M - 8867-4 PULSE RATE 68 /min Sep 22, 2012 blood pressure, systolic - 8480-6 BP SYSTOLIC 140 mm Hg Sep 22, 2012 blood pressure, diastolic - 8462-4 BP DIASTOLIC 68 mm Hg Mar 31, 2013 weight E&M - 3141-9 WEIGHT 194 lb Mar 31, 2013 pulse rate E&M - 8867-4 PULSE RATE 64 /min Mar 31, 2013 blood pressure, systolic - 8480-6 BP SYSTOLIC 120 mm Hg Mar 31, 2013 blood pressure, diastolic - 8462-4 BP DIASTOLIC 70 mm Hg May 30, 2013 weight E&M - 3141-9 WEIGHT 194 lb May 30, 2013 blood pressure, systolic, sitting, left arm BP SYS SIT L 130 mm Hg May 30, 2013 blood pressure, diastolic, sitting, left arm BP VILLA SIT L 80 mm Hg May 30, 2013 pulse rate, sitting, left PULSE SIT L 52 /min May 30, 2013 blood pressure, systolic - 8480-6 BP SYSTOLIC 130 mm Hg May 30, 2013 pulse rate E&M - 8867-4 PULSE RATE 52 /min May 30, 2013 blood pressure, diastolic - 8462-4 BP DIASTOLIC 80 mm Hg Jun 27, 2013 weight E&M - 3141-9 WEIGHT 199.2 lb Jun 27, 2013 respiratory rate E&M - 9279-1 RESP RATE 18 /min Jun 27, 2013 [...] /min Jun 27, 2013 blood pressure, systolic - 8480-6 BP SYSTOLIC 126 mm Hg Jun 27, 2013 pulse rate E&M - 8867-4 PULSE RATE 60 /min Jun 27, 2013 blood pressure, diastolic - 8462-4 BP DIASTOLIC 70 mm Hg Sep 29, 2013 weight E&M - 3141-9 WEIGHT 204 lb Sep 29, 2013 pulse rate E&M - 8867-4 PULSE RATE 60 /min Sep 29, 2013 blood pressure, systolic - 8480-6 BP SYSTOLIC 130 mm Hg Sep 29, 2013 blood pressure, diastolic - 8462-4 BP DIASTOLIC 60 mm Hg Feb 13, 2014 weight E&M - 3141-9 WEIGHT 199 lb Feb 13, 2014 temperature E&M TEMPERATURE 97 deg f Feb 13, 2014 pulse rate E&M - 8867-4 PULSE RATE 60 /min Feb 13, 2014 blood pressure, systolic - 8480-6 BP SYSTOLIC 140 mm Hg Feb 13, 2014 blood pressure, diastolic - 8462-4 BP DIASTOLIC 70 mm Hg Mar 06, 2014 weight E&M - 3141-9 WEIGHT 198.8 lb Mar 06, 2014 temperature E&M TEMPERATURE 97.3 deg f Mar 06, 2014 respiratory rate E&M - 9279-1 RESP RATE 16 /min Mar 06, 2014 pulse rate E&M - 8867-4 PULSE RATE 60 /min Mar 06, 2014 blood pressure, systolic - 8480-6 BP SYSTOLIC 132 mm Hg Mar 06, 2014 blood pressure, diastolic - 8462-4 BP DIASTOLIC 84 mm Hg Results Date Description Test Name Value Reference Interpretation Status Mar 04, prostate specific PSA 4.3 ng/mL 2010 antigen Mar 31, sodium, serum SODIUM 139 mmol/L [phone] Mar 31, potassium, serum POTASSIUM 3.7 mmol/L [...] Mar 31, cholesterol, serum CHOLESTEROL 154 mg/dl [phone] Mar 31, HDL cholesterol, HDL 40 mg/dl 26-62 2012 serum Sep 22, sodium, serum SODIUM 139 mmol/L [phone] Sep 22, potassium, serum POTASSIUM 3.7 mmol/L 3.3-5.0 2013Sep 22, albumin, serum ALBUMIN 4.0 g/dL 3.5-5.0 2013Sep 22, calcium, serum CALCIUM 9.5 mg/dL 8.6-9.8 2013Sep 22, creatinine, serum CREATININE 0.86 mg/dL 0.46-1.20 2013Sep 22, urea nitrogen, blood BUN 18 mg/dL 10-2013Sep 22, alkaline phosphatase, ALK PHOS 85 U/L 32-96 2013 serum Sep 22, aspartate SGOT (AST) 21 U/L 42 2013 aminotransferase (SGOT), serum Sep 22, alanine SGPT (ALT) 15 U/L 43 2013 aminotransferase (SGPT), serum Sep 22, cholesterol, serum CHOLESTEROL 154 mg/dl [phone] Sep 22, HDL cholesterol, HDL 40 mg/dl -62 2013 serum Sep 22, triglyceride, serum, TRIGLYCERIDE 104 mg/dl 2013 fasting Sep 22, LDL cholesterol, LDL 93 mg/dl 2013 serum
--- OUTSIDE RECORDS SUMMARY | 2018-01-11 15:31 | XMS REPORT | Continuity of Care Document ---
:1940 Author Organization [facility] Care Team Providers Name Role Phone MD [...] Location Date Office Visit Liam Alfaro MD [facility] [place] Internal Mar 31, 2014 Med Allergies, Adverse Reactions, Alerts Type Substance Reaction Status Drug allergy ZETIA achy Active Drug allergy CRESTOR achy Active Drug allergy CIPRO Inactive Drug allergy PCN rash as a child Active Drug allergy CIPRO Inactive Problems Problem Effective Dates Problem Status CAD Inactive HYPERCHOLESTEROLEMIA Active ESSENTIAL HYPERTENSION Active CARCINOMA, PROSTATE Mar 11, 2012 Active CORONARY ATHEROSCLEROSIS OF [place] CORONARY ARTERY Jun 22, 1959 Active HYPERTENSIVE HEART DISEASE, BENIGN, 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, 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 FAILURE ABDOMINAL PAIN, GENERALIZED Aug 13, 2012 Inactive ATRIAL FIBRILLATION May 17, 2013 Active DERMATITIS, CONTACT, NOS Feb 13, 2014 Inactive WOUND, FOOT Mar 06, 2014 Active LONGTERM MEDICATION USE NEC Mar 06, 2014 Active Procedures Date Description Comments Mar 11, 2012 smoking status former smoker May 30, 2013 smoking status former smoker Jun 27, 2013 smoking status former smoker Feb 13, 2014 smoking status Former smoker Mar 06, 2014 smoking status Former smoker Mar 06, 2014 smoking/tobacco cessation, patient education and yes counseling Mar 31, 2014 smoking status Former smoker Mar 31, 2014 smoking/tobacco cessation, patient education and yes [...] TAB DAILY PO Sep 29, 2013 Inactive [id number] LORADAMED 10 MG TABS ONE TAB DAILY PO FOR ALLERGYS Sep 29, 2013 Inactive LOTRISONE 1-0.05 % CREA apply to rash bid Feb 13, 2014 Inactive Immunizations Vaccine Date Status influenza immunization (Flu Vax) has been administered Mar 31, 2012 completed influenza immunization (Flu Vax) has been administered Apr 23, 2013 completed dT (Diphtheria and Tetanus) booster given Mar 06, 2014 completed dT (Diphtheria and Tetanus) immunization for children, #1 Mar 06, 2014 completed Vital Signs Date [...] - 8462-4 BP DIASTOLIC 84 mm Hg Mar 31, 2014 weight Bella&M - 3141-9 WEIGHT 197 lb Mar 31, 2014 temperature E&M TEMPERATURE 97 deg f Mar 31, 2014 pulse rate E&M - 8867-4 PULSE RATE 64 /min Mar 31, 2014 blood pressure, systolic - 8480-6 BP SYSTOLIC 130 mm Hg Mar 31, 2014 blood pressure, diastolic - 8462-4 BP DIASTOLIC 70 mm Hg Results Date Description Test Name Value Reference Interpretation Status Mar 23, hemoglobin, blood HGB 13.4 g/dL 12.3-17.3 2013Mar 23, hematocrit, blood HCT 39.6 % 36.7-50.5 2013Mar 04, prostate specific PSA 4.3 ng/mL 2011 antigen Mar 31, sodium, serum SODIUM 139 mmol/L [phone] Mar 31, potassium, serum POTASSIUM 3.7 mmol/L 3.3-5.0 2012Mar 31, albumin, serum ALBUMIN 4.0 g/dL 3.5-5.0 2012Mar 31, calcium, serum CALCIUM 9.5 mg/dL 8.6-9.8 2012Mar 31, creatinine, serum CREATININE 0.86 mg/dL 0.46-1.20 2012Mar 31, urea nitrogen, blood BUN 18 mg/dL 04-12Mar 31, alkaline phosphatase, ALK PHOS 85 U/L 2012 serum Mar 31, aspartate SGOT (AST) 21 U/L 2012 aminotransferase (SGOT), serum Mar 31, alanine SGPT (ALT) 15 U/L 2012 aminotransferase (SGPT), serum Mar 31, cholesterol, serum CHOLESTEROL 154 mg/dl [phone] Mar 31, HDL cholesterol, HDL 40 mg/dl -2012 serum Sep 22, sodium, serum SODIUM 139 mmol/L [phone] Sep 22, potassium, serum POTASSIUM 3.7 mmol/L 3.3-5.0 2013Sep 22, albumin, serum ALBUMIN 4.0 g/dL 3.5-5.0 2013Sep 22, calcium, serum CALCIUM 9.5 mg/dL 8.6-9.8 2013Sep 22, creatinine, serum CREATININE 0.86 mg/dL 0.46-1.20 2013Sep 22, urea nitrogen, blood BUN 18 mg/dL 04-12Sep 22, alkaline phosphatase, ALK PHOS 85 U/L 2013 serum Sep 22, aspartate SGOT (AST) 21 U/L 2013 aminotransferase (SGOT), serum Sep 22, alanine SGPT (ALT) 15 U/L 2013 aminotransferase (SGPT), serum Sep 22, cholesterol, serum CHOLESTEROL 154 mg/dl [phone] Sep 22, HDL cholesterol, HDL 40 mg/dl -2013 serum Sep 22, triglyceride, serum, TRIGLYCERIDE 104 mg/dl 2014 fasting Sep 22, LDL cholesterol, LDL 93 mg/dl 2013 serum Mar 23, sodium, serum SODIUM 140 mmol/L [phone] Mar 23, potassium, serum POTASSIUM 4.0 mmol/L 3.3-5.0 2013Mar 23, albumin, serum ALBUMIN 3.7 g/dL 3.5-5.0 2013Mar 23, calcium, serum CALCIUM 9.5 mg/dL 8.6-9.8 2013Mar 23, creatinine, serum CREATININE 0.82 mg/dL 0.46-1.20 2013Mar 23, urea nitrogen, blood BUN 14 mg/dL 10-22 2013Mar 23, alkaline phosphatase, ALK PHOS 65 U/L 32-96 2013 serum Mar 23, aspartate SGOT (AST) 23 U/L 10-42 2013 aminotransferase (SGOT), serum Mar 23, alanine SGPT (ALT) 15 U/L -43 2013 aminotransferase (SGPT), serum Mar 23, cholesterol, serum CHOLESTEROL 139 mg/dl [phone] Mar 23, HDL cholesterol, HDL 47 mg/dl 26-62 2013 serum Mar 23, LDL cholesterol, LDL 79 mg/dl 0-130 2013 serum Mar 23, thyroid stimulating TSH 2.23 0.34-5.60 2014 hormone, serum uIU/mL
--- OUTSIDE RECORDS SUMMARY | 2018-01-11 15:31 | XMS REPORT | Continuity of Care Document ---
:1940 Author Organization [facility] Care Team Providers Name Role Phone MD Dominic, Art Unavailable Unavailable Insurance Providers Payer name Policy type / Policy ID Covered libertarian ID Policy Lopez Coverage type AETNA SECONDARY [...] Encounters Encounter Performer Location Date Lab Report Art MD Dominic [facility] [place] [facility] Mar 23, 2014 Allergies, Adverse Reactions, Alerts Type Substance Reaction Status Drug allergy ZETIA achy Active Drug allergy CRESTOR achy Active Drug allergy CIPRO Inactive Drug allergy PCN rash as a child Active Drug allergy CIPRO Inactive Problems Problem Effective Dates Problem Status CAD Inactive HYPERCHOLESTEROLEMIA Active ESSENTIAL HYPERTENSION Active CARCINOMA, PROSTATE Mar 11, 2012 Active CORONARY ATHEROSCLEROSIS OF [place] CORONARY ARTERY Jun 22, 1959 Active HYPERTENSIVE HEART DISEASE, BENIGN, 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, 1959 Active FAILURE ABDOMINAL PAIN, GENERALIZED Aug 13, 2012 Inactive ATRIAL FIBRILLATION May 17, 2013 Active DERMATITIS, CONTACT, NOS Feb 13, 2014 Inactive WOUND, FOOT Mar 06, 2014 Active BUYING INTERN MEDICATION USE NEC Mar 06, 2014 Active [...] TAB DAILY PO Sep 29, 2013 Inactive [id number] LORADAMED 10 MG TABS ONE TAB DAILY [...] 2013Mar 04, prostate specific PSA 4.3 ng/mL 2010 antigen Mar 31, sodium, serum SODIUM 139 mmol/L [phone] Mar 31, potassium, serum POTASSIUM 3.7 mmol/L [...] Mar 31, cholesterol, serum CHOLESTEROL 154 mg/dl [phone] Mar 31, HDL cholesterol, HDL 40 mg/dl 26-62 2012 serum Sep 22, sodium, serum SODIUM 139 mmol/L [phone] Sep 22, potassium, serum POTASSIUM 3.7 mmol/L [...] Sep 22, cholesterol, serum CHOLESTEROL 154 mg/dl [phone] Sep 22, HDL cholesterol, HDL 40 mg/dl 2013 serum Sep 22, triglyceride, serum, TRIGLYCERIDE 104 mg/dl 2013 fasting Sep 22, LDL cholesterol, LDL 93 mg/dl 2013 serum Mar 23, sodium, serum SODIUM 140 mmol/L [phone] Mar 23, potassium, serum POTASSIUM 4.0 mmol/L 3.3-5.0 2013Mar 23, albumin, serum ALBUMIN 3.7 g/dL 3.5-5.0 2013Mar 23, calcium, serum CALCIUM 9.5 mg/dL 8.6-9.8 2013Mar 23, creatinine, serum CREATININE 0.82 mg/dL 0.46-1.20 2013Mar 23, urea nitrogen, blood BUN 14 mg/dL 04-12Mar 23, alkaline phosphatase, ALK PHOS 65 U/L 2013 serum Mar 23, aspartate SGOT (AST) 23 U/L 2013 aminotransferase (SGOT), serum Mar 23, alanine SGPT (ALT) 15 U/L 2013 aminotransferase (SGPT), serum Mar 23, cholesterol, serum CHOLESTEROL 139 mg/dl [phone] Mar 23, HDL cholesterol, HDL 47 mg/dl 2013 serum Mar 23, LDL cholesterol, LDL 79 mg/dl 0-130 2013 serum Mar 23, thyroid stimulating TSH 2.23 0.34-5.60 2013 hormone, serum uIU/mL
--- OUTSIDE RECORDS SUMMARY | 2018-01-11 15:31 | XMS REPORT | Continuity of Care Document ---
:1940 Author Organization [facility] Care Team Providers Name Role [...] Location Date Lab Report Art MD Dominic 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, 1959 Active FAILURE ABDOMINAL PAIN, GENERALIZED Aug 13, 2012 Inactive ATRIAL FIBRILLATION May 17, 2013 Active DERMATITIS, CONTACT, NOS Feb 13, 2014 Inactive WOUND, FOOT Mar 06, 2014 Active [facility] MEDICATION USE NEC Mar 06, 2014 Active [...] TAB DAILY PO Sep 29, 2013 Inactive [id number] LORADAMED 10 MG TABS ONE TAB DAILY [...] Mar 31, sodium, serum SODIUM 139 mmol/L [phone] Mar 31, potassium, serum POTASSIUM 3.7 mmol/L [...] Mar 31, cholesterol, serum CHOLESTEROL 154 mg/dl [phone] Mar 31, HDL cholesterol, HDL 40 mg/dl 26-62 2012 serum Sep 22, sodium, serum SODIUM 139 mmol/L [phone] Sep 22, potassium, serum POTASSIUM 3.7 mmol/L 3.3-5.0 2013Sep 22, albumin, serum ALBUMIN 4.0 g/dL 3.5-5.0 2013Sep 22, calcium, serum CALCIUM 9.5 mg/dL 8.6-9.8 2013Sep 22, creatinine, serum CREATININE 0.86 mg/dL 0.46-1.20 2013Sep 22, urea nitrogen, blood BUN 18 mg/dL -2013Sep 22, alkaline phosphatase, ALK PHOS 85 U/L 32-96 2013 serum Sep 22, aspartate SGOT (AST) 21 U/L 2013 aminotransferase (SGOT), serum Sep 22, alanine SGPT (ALT) 15 U/L 43 2013 aminotransferase (SGPT), serum Sep 22, cholesterol, serum CHOLESTEROL 154 mg/dl [phone] Sep 22, HDL cholesterol, HDL 40 mg/dl -62 2013 serum Sep 22, triglyceride, serum, TRIGLYCERIDE 104 mg/dl 2013 fasting Sep 22, LDL cholesterol, LDL 93 mg/dl 2013 serum
--- OUTSIDE RECORDS SUMMARY | 2018-01-11 15:32 | XMS REPORT | Continuity of Care Document ---
:1940 Author Organization [facility] Care Team Providers Name Role Phone MD Nerissa, Francisco Cowan Unavailable Insurance Providers Payer name Policy type / Policy ID Covered constitution party ID Policy Lopez Coverage type AETNA [...] AETNA (MEDICARE REPLACEMENT HMO) AETNA (MEDICARE SUPPLEMENT) AETNA (MEDICARE REPLACEMENT PPO) MEDICARE B[place]: [employer] AETNA (MEDICARE REPLACEMENT [...] Location Date Office Visit Francisco Multani MD [facility] [place] Internal Oct 02, 2014 Med Allergies, Adverse Reactions, Alerts Type Substance Reaction Status Drug allergy ZETIA achy Active Drug allergy CRESTOR achy Active Drug allergy CIPRO Inactive Drug allergy PCN rash as a child Active Drug allergy CIPRO Inactive Problems Problem Effective Dates Problem Status CAD Inactive HYPERCHOLESTEROLEMIA Active ESSENTIAL HYPERTENSION Active CARCINOMA, PROSTATE Mar 11, 2012 Active CORONARY ATHEROSCLEROSIS OF [place] CORONARY ARTERY Jun 22, 1959 Active HYPERTENSIVE HEART DISEASE, BENIGN, 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, 1959 Active FAILURE ABDOMINAL PAIN, GENERALIZED Aug 13, 2012 Inactive ATRIAL FIBRILLATION May 17, 2013 Active DERMATITIS, CONTACT, NOS Feb 13, 2014 Inactive WOUND, FOOT Mar 06, 2014 Inactive 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 Mar 06, 2014 Active BENIGN PAROXYSMAL POSITIONAL VERTIGO Jun 07, 2014 Active BODY MASS INDEX 26.0-26.9, ADULT Jun 07, 2014 Active BACK PAIN, CHRONIC Oct 02, 2014 Active Procedures Date Description Comments Mar [...] smoking/tobacco cessation, patient education and yes counseling Jun 07, 2014 smoking status Former smoker Jun 07, 2014 smoking/tobacco cessation, patient education and yes counseling Oct 02, 2014 smoking status Former smoker Oct 02, 2014 smoking/tobacco cessation, patient education and yes [...] daily if needed Jun 23, 2012 Active ALEVE 220 MG TABS one po [...] TAB DAILY PO Sep 29, 2013 Inactive [id number] LORADAMED 10 MG TABS ONE TAB DAILY PO FOR ALLERGYS Sep 29, 2013 Inactive LOTRISONE 1-0.05 % CREA apply to rash bid Feb 13, 2014 Inactive XALATAN 0.005 % SOLN 1 gtt both eyes qd Mar 31, 2013 Active NITROSTAT 0.3 MG SUBL 1 sl q5min prn chest pain Oct 02, 2014 Active Immunizations Vaccine Date Status influenza [...] 84 mm Hg Mar 31, 2014 weight E&M - 3141-9 WEIGHT 197 lb Mar 31, 2014 temperature E&M TEMPERATURE 97 deg f Mar 31, 2014 pulse rate E&M - 8867-4 PULSE RATE 64 /min Mar 31, 2014 blood pressure, systolic - 8480-6 BP SYSTOLIC 130 mm Hg Mar 31, 2014 blood pressure, diastolic - 8462-4 BP DIASTOLIC 70 mm Hg Jun 07, 2014 weight E&M - 3141-9 WEIGHT 191 lb Jun 07, 2014 temperature E&M TEMPERATURE 98.0 deg f Jun 07, 2014 blood pressure, systolic, sitting, left arm BP SYS SIT L 140 mm Hg Jun 07, 2014 blood pressure, diastolic, sitting, left arm BP VILLA SIT L 80 mm Hg Jun 07, 2014 pulse rate, sitting, left PULSE SIT L 72 /min Jun 07, 2014 respiratory rate E&M - 9279-1 RESP RATE 12 /min Jun 07, 2014 orthostatic blood pressure, standing, left arm, OBPSTALASYS 140 null systolic Jun 07, 2014 orthostatic blood pressure, standing, left arm, OBPSTALADIA 80 null diastolic Jun 07, 2014 blood pressure, systolic - 8480-6 BP SYSTOLIC 140 mm Hg Jun 07, 2014 pulse rate E&M - 8867-4 PULSE RATE 72 /min Jun 07, 2014 blood pressure, diastolic - 8462-4 BP DIASTOLIC 80 mm Hg Oct 02, 2014 weight E&M - 3141-9 WEIGHT 203 lb Oct 02, 2014 temperature E&M TEMPERATURE 97 deg f Oct 02, 2014 pulse rate E&M - 8867-4 PULSE RATE 60 /min Oct 02, 2014 blood pressure, systolic - 8480-6 BP SYSTOLIC 120 mm Hg Oct 02, 2014 blood pressure, diastolic - 8462-4 BP DIASTOLIC 70 mm Hg Results Date Description Test Name Value Reference Interpretation Status Mar 23, hemoglobin, blood HGB 13.4 g/dL 12.3-17.3 2013Mar 23, hematocrit, blood HCT 39.6 % 36.7-50.5 2013Mar 04, prostate specific PSA 4.3 ng/mL 2010 antigen Mar 31, sodium, serum SODIUM 139 mmol/L [phone] Mar 31, potassium, serum POTASSIUM 3.7 mmol/L [...] Mar 31, cholesterol, serum CHOLESTEROL 154 mg/dl [phone] Mar 31, HDL cholesterol, HDL 40 mg/dl 2012 serum Sep 22, sodium, serum SODIUM 139 mmol/L [phone] Sep 22, potassium, serum POTASSIUM 3.7 mmol/L [...] Sep 22, cholesterol, serum CHOLESTEROL 154 mg/dl [phone] Sep 22, HDL cholesterol, HDL 40 mg/dl 2013 serum Sep 22, triglyceride, serum, TRIGLYCERIDE 104 mg/dl 2013 fasting Sep 22, LDL cholesterol, LDL 93 mg/dl 2013 serum Mar 23, sodium, serum SODIUM 140 mmol/L [phone] Mar 23, potassium, serum POTASSIUM 4.0 mmol/L 3.3-5.0 2013Mar 23, albumin, serum ALBUMIN 3.7 g/dL 3.5-5.0 2013Mar 23, calcium, serum CALCIUM 9.5 mg/dL 8.6-9.8 2013Mar 23, creatinine, serum CREATININE 0.82 mg/dL 0.46-1.20 2013Mar 23, urea nitrogen, blood BUN 14 mg/dL 04-12Mar 23, alkaline phosphatase, ALK PHOS 65 U/L -96 2013 serum Mar 23, aspartate SGOT (AST) 23 U/L 2013 aminotransferase (SGOT), serum Mar 23, alanine SGPT (ALT) 15 U/L 2013 aminotransferase (SGPT), serum Mar 23, cholesterol, serum CHOLESTEROL 139 mg/dl [phone] Mar 23, HDL cholesterol, HDL 47 mg/dl 2013 serum Mar 23, LDL cholesterol, LDL 79 mg/dl 0-130 2013 serum Mar 23, thyroid stimulating TSH 2.23 0.34-5.60 2013 hormone, serum uIU/mL Sep 25, sodium, serum SODIUM 138 mmol/L [phone] Sep 25, potassium, serum POTASSIUM 3.9 mmol/L 3.3-5.0 2014Sep 25, albumin, serum ALBUMIN 3.9 g/dL 3.5-5.0 2014Sep 25, calcium, serum CALCIUM 9.3 mg/dL 8.6-9.8 2014Sep 25, creatinine, serum CREATININE 1.07 mg/dL 0.46-1.20 2014Sep 25, urea nitrogen, blood BUN 15 mg/dL 04-12Sep 25, alkaline phosphatase, ALK PHOS 83 U/L -96 2014 serum Sep 25, aspartate SGOT (AST) 25 U/L 2014 aminotransferase (SGOT), serum Sep 25, alanine SGPT (ALT) 21 U/L 2014 aminotransferase (SGPT), serum Sep 25, cholesterol, serum CHOLESTEROL 140 mg/dl [phone] Sep 25, HDL cholesterol, HDL 42 mg/dl 2014 serum Sep 25, LDL cholesterol, LDL 74 mg/dl 0-130 2015 serum
--- OUTSIDE RECORDS SUMMARY | 2018-01-11 15:32 | XMS REPORT | Continuity of Care Document ---
:1939 Author Organization [facility] Care Team Providers Name Role Phone MD Dominic, Art Unavailable Unavailable Insurance Providers Payer name Policy type / Policy ID Covered green party ID Policy Lopez Coverage type AETNA [...] Location Date Office Visit Liam Alfaro MD [facility] [place] [facility] Jun 07, 2014 Allergies, Adverse Reactions, Alerts Type Substance Reaction Status Drug allergy ZETIA achy Active Drug allergy CRESTOR achy Active Drug allergy CIPRO Inactive Drug allergy PCN rash as a child Active Drug allergy CIPRO Inactive Problems Problem Effective Dates Problem Status CAD Inactive HYPERCHOLESTEROLEMIA Active ESSENTIAL HYPERTENSION Active CARCINOMA, PROSTATE Mar 11, 2012 Active CORONARY ATHEROSCLEROSIS OF [place] CORONARY ARTERY Jun 22, 1959 Active HYPERTENSIVE HEART DISEASE, BENIGN, 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, 1959 Active FAILURE ABDOMINAL PAIN, GENERALIZED Aug 13, 2012 Inactive ATRIAL FIBRILLATION May 17, 2013 Active DERMATITIS, CONTACT, NOS Feb 13, 2014 Inactive WOUND, FOOT Mar 06, 2014 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 Mar 06, 2014 Active BENIGN PAROXYSMAL POSITIONAL VERTIGO Jun 07, 2014 Active BODY MASS INDEX 26.0-26.9, ADULT Jun 07, 2014 Active Procedures Date Description Comments Mar [...] TAB DAILY PO Sep 29, 2013 Inactive [id number] LORADAMED 10 MG TABS ONE TAB DAILY PO FOR ALLERGYS Sep 29, 2013 Inactive LOTRISONE 1-0.05 % CREA apply to rash bid Feb 13, 2014 Inactive XALATAN 0.005 % SOLN 1 gtt both eyes qd Mar 31, 2013 Active Immunizations Vaccine Date Status influenza immunization [...] - 8462-4 BP DIASTOLIC 80 mm Hg Results Date Description Test Name Value Reference Interpretation Status Mar 23, hemoglobin, blood HGB 13.4 g/dL 12.3-17.3 2013Mar 23, hematocrit, blood HCT 39.6 % 36.7-50.5 2013Mar 04, prostate specific PSA 4.3 ng/mL 2011 antigen Mar 31, sodium, serum SODIUM 139 mmol/L [phone] Mar 31, potassium, serum POTASSIUM 3.7 mmol/L 3.3-5.0 2012Mar 31, albumin, serum ALBUMIN 4.0 g/dL 3.5-5.0 2012Mar 31, calcium, serum CALCIUM 9.5 mg/dL 8.6-9.8 2012Mar 31, creatinine, serum CREATININE 0.86 mg/dL 0.46-1.20 2012Mar 31, urea nitrogen, blood BUN 18 mg/dL 10-22 2012Mar 31, alkaline phosphatase, ALK PHOS 85 U/L 32-96 2012 serum Mar 31, aspartate SGOT (AST) 21 U/L 10-42 2012 aminotransferase (SGOT), serum Mar 31, alanine SGPT (ALT) 15 U/L 11-43 2012 aminotransferase (SGPT), serum Mar 31, cholesterol, serum CHOLESTEROL 154 mg/dl [phone] Mar 31, HDL cholesterol, HDL 40 mg/dl 26-62 2012 serum Sep 22, sodium, serum SODIUM 139 mmol/L [phone] Sep 22, potassium, serum POTASSIUM 3.7 mmol/L [...] Sep 22, cholesterol, serum CHOLESTEROL 154 mg/dl [phone] Sep 22, HDL cholesterol, HDL 40 mg/dl 2013 serum Sep 22, triglyceride, serum, TRIGLYCERIDE 104 mg/dl 2013 fasting Sep 22, LDL cholesterol, LDL 93 mg/dl 2013 serum Mar 23, sodium, serum SODIUM 140 mmol/L [phone] Mar 23, potassium, serum POTASSIUM 4.0 mmol/L 3.3-5.0 2013Mar 23, albumin, serum ALBUMIN 3.7 g/dL 3.5-5.0 2013Mar 23, calcium, serum CALCIUM 9.5 mg/dL 8.6-9.8 2013Mar 23, creatinine, serum CREATININE 0.82 mg/dL 0.46-1.20 2013Mar 23, urea nitrogen, blood BUN 14 mg/dL 04-12Mar 23, alkaline phosphatase, ALK PHOS 65 U/L 2013Mar 23, aspartate SGOT (AST) 23 U/L 2013 aminotransferase (SGOT), serum Mar 23, alanine SGPT (ALT) 15 U/L 2013 aminotransferase (SGPT), serum Mar 23, cholesterol, serum CHOLESTEROL 139 mg/dl [phone] Mar 23, HDL cholesterol, HDL 47 mg/dl 2013Mar 23, LDL cholesterol, LDL 79 mg/dl 0-130 2013Mar 23, thyroid stimulating TSH 2.23 0.34-5.60 2013 hormone, serum uIU/mL
--- OUTSIDE RECORDS SUMMARY | 2018-01-11 15:33 | XMS REPORT | Continuity of Care Document ---
:1940 Author Organization [facility] Care Team Providers Name Role Phone WARNER Trinh, Laure Unavailable Unavailable Insurance Providers Payer name Policy [...] Encounters Encounter Performer Location Date Office Visit WARNER GuzmanP-C [facility] October 30, 2014 Family Practice Allergies, Adverse Reactions, Alerts Type Substance Reaction Status Drug allergy ZETIA achy Active Drug allergy CRESTOR achy Active Drug allergy CIPRO Inactive Drug allergy PCN rash as a child Active Drug allergy CIPRO Inactive Problems Problem Effective Dates Problem Status CAD Inactive HYPERCHOLESTEROLEMIA Active ESSENTIAL HYPERTENSION Active CARCINOMA, PROSTATE Mar 11, 2012 Active CORONARY ATHEROSCLEROSIS OF [place] CORONARY ARTERY Jun 22, 1959 Active HYPERTENSIVE HEART DISEASE, BENIGN, 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, 1959 Active FAILURE ABDOMINAL PAIN, GENERALIZED Aug 13, 2012 Inactive ATRIAL FIBRILLATION May 17, 2013 Active DERMATITIS, CONTACT, NOS Feb 13, 2014 Inactive WOUND, FOOT Mar 06, 2014 Inactive [facility] MEDICATION USE NEC Mar 06, 2014 Active BENIGN PAROXYSMAL POSITIONAL VERTIGO Jun 07, 2014 Active BODY MASS INDEX 26.0-26.9, ADULT Jun 07, 2014 Active BACK PAIN, CHRONIC Oct 02, 2014 Active BRONCHITIS, ACUTE October 30, 2014 Active Procedures Date Description Comments Mar [...] smoking/tobacco cessation, patient education and yes counseling October 30, 2014 smoking status Former smoker Medications Medication [...] TAB DAILY PO Sep 29, 2013 Inactive [id number] LORADAMED 10 MG TABS ONE TAB DAILY PO FOR ALLERGYS Sep 29, 2013 Inactive LOTRISONE 1-0.05 % CREA apply to rash bid Feb 13, 2014 Inactive XALATAN 0.005 % SOLN 1 gtt both eyes qd Mar 31, 2013 Active NITROSTAT 0.3 MG SUBL 1 sl q5min prn chest pain Oct 02, 2014 Active LEVAQUIN 500 MG TABS 1 tablet PO daily for 10 days October 30, 2014 Active CHERATUSSIN AC 100-10 MG/5ML 10 ml PO every 12 hours PRN October 30, 2014 Active SYRP cough BENZONATATE 100 MG CAPS 1-2 capsules PO TID PRN cough October 30, 2014 Active Immunizations Vaccine Date Status influenza [...] - 8462-4 BP DIASTOLIC 70 mm Hg October 30, 2014 weight E&M - 3141-9 WEIGHT 208 lb October 30, 2014 temperature E&M TEMPERATURE 99.1 deg f October 30, 2014 respiratory rate E&M - 9279-1 RESP RATE 16 /min October 30, 2014 blood pressure, systolic - 8480-6 BP SYSTOLIC 116 mm Hg October 30, 2014 blood pressure, diastolic - 8462-4 BP DIASTOLIC 79 mm Hg October 30, 2014 pulse rate E&M - 8867-4 PULSE RATE 88 /min Results Date Description Test Name Value Reference Interpretation Status Mar 23, hemoglobin, blood HGB 13.4 g/dL 12.3-17.3 2013Mar 23, hematocrit, blood HCT 39.6 % 36.7-50.5 2013Mar 04, prostate specific PSA 4.3 ng/mL 2010 antigen Mar 31, sodium, serum SODIUM 139 mmol/L [phone] Mar 31, potassium, serum POTASSIUM 3.7 mmol/L 3.3-5.0 2012Mar 31, albumin, serum ALBUMIN 4.0 g/dL 3.5-5.0 2012Mar 31, calcium, serum CALCIUM 9.5 mg/dL 8.6-9.8 2012Mar 31, creatinine, serum CREATININE 0.86 mg/dL 0.46-1.20 2012Mar 31, urea nitrogen, blood BUN 18 mg/dL -2012Mar 31, alkaline phosphatase, ALK PHOS 85 U/L 32-96 2012 serum Mar 31, aspartate SGOT (AST) 21 U/L -42 2012 aminotransferase (SGOT), serum Mar 31, alanine SGPT (ALT) 15 U/L -43 2012 aminotransferase (SGPT), serum Mar 31, cholesterol, serum CHOLESTEROL 154 mg/dl [phone] Mar 31, HDL cholesterol, HDL 40 mg/dl 2012 serum Sep 22, sodium, serum SODIUM 139 mmol/L [phone] Sep 22, potassium, serum POTASSIUM 3.7 mmol/L [...] Sep 22, cholesterol, serum CHOLESTEROL 154 mg/dl [phone] Sep 22, HDL cholesterol, HDL 40 mg/dl 2013 serum Sep 22, triglyceride, serum, TRIGLYCERIDE 104 mg/dl 2013 fasting Sep 22, LDL cholesterol, LDL 93 mg/dl 2013 serum Mar 23, sodium, serum SODIUM 140 mmol/L [phone] Mar 23, potassium, serum POTASSIUM 4.0 mmol/L [...] Mar 23, cholesterol, serum CHOLESTEROL 139 mg/dl [phone] Mar 23, HDL cholesterol, HDL 47 mg/dl -2013 serum Mar 23, LDL cholesterol, LDL 79 mg/dl 0-130 2013 serum Mar 23, thyroid stimulating TSH 2.23 0.34-5.60 2014 hormone, serum uIU/mL Sep 25, sodium, serum SODIUM 138 mmol/L [phone] Sep 25, potassium, serum POTASSIUM 3.9 mmol/L 3.3-5.0 2014Sep 25, albumin, serum ALBUMIN 3.9 g/dL 3.5-5.0 2014Sep 25, calcium, serum CALCIUM 9.3 mg/dL 8.6-9.8 2014Sep 25, creatinine, serum CREATININE 1.07 mg/dL 0.46-1.20 2014Sep 25, urea nitrogen, blood BUN 15 mg/dL 10-22 2014Sep 25, alkaline phosphatase, ALK PHOS 83 U/L 32-96 2014 serum Sep 25, aspartate SGOT (AST) 25 U/L 10-42 2014 aminotransferase (SGOT), serum Sep 25, alanine SGPT (ALT) 21 U/L 11-43 2014 aminotransferase (SGPT), serum Sep 25, cholesterol, serum CHOLESTEROL 140 mg/dl [phone] Sep 25, HDL cholesterol, HDL 42 mg/dl 26-62 2014 serum Sep 25, LDL cholesterol, LDL 74 mg/dl 0-130 2014 serum
--- OUTSIDE RECORDS SUMMARY | 2018-01-11 15:33 | XMS REPORT | Continuity of Care Document ---
:1940 Author Organization [facility] Care Team Providers Name Role Phone MD [...] Encounters Encounter Performer Location Date Lab Report Liam Alfaro MD [facility] Internal Med Sep 25, 2014 Allergies, Adverse Reactions, Alerts Type Substance Reaction Status Drug allergy ZETIA achy Active Drug allergy CRESTOR achy Active Drug allergy CIPRO Inactive Drug allergy PCN rash as a child Active Drug allergy CIPRO Inactive Problems Problem Effective Dates Problem Status CAD Inactive HYPERCHOLESTEROLEMIA Active ESSENTIAL HYPERTENSION Active CARCINOMA, PROSTATE Mar 11, 2012 Active CORONARY ATHEROSCLEROSIS OF [place] CORONARY ARTERY Jun 22, 1959 Active HYPERTENSIVE HEART DISEASE, BENIGN, 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, 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 FAILURE ABDOMINAL PAIN, GENERALIZED Aug 13, 2012 Inactive ATRIAL FIBRILLATION May 17, 2013 Active DERMATITIS, CONTACT, NOS Feb 13, 2014 Inactive WOUND, FOOT Mar 06, 2014 Inactive [facility] MEDICATION USE NEC Mar 06, 2014 Active [...] TAB DAILY PO Sep 29, 2013 Inactive [id number] LORADAMED 10 MG TABS ONE TAB DAILY [...] Mar 31, sodium, serum SODIUM 139 mmol/L [phone] Mar 31, potassium, serum POTASSIUM 3.7 mmol/L [...] Mar 31, cholesterol, serum CHOLESTEROL 154 mg/dl [phone] Mar 31, HDL cholesterol, HDL 40 mg/dl 2012 serum Sep 22, sodium, serum SODIUM 139 mmol/L [phone] Sep 22, potassium, serum POTASSIUM 3.7 mmol/L [...] Sep 22, cholesterol, serum CHOLESTEROL 154 mg/dl [phone] Sep 22, HDL cholesterol, HDL 40 mg/dl 2013 serum Sep 22, triglyceride, serum, TRIGLYCERIDE 104 mg/dl 2013 fasting Sep 22, LDL cholesterol, LDL 93 mg/dl 2013 serum Mar 23, sodium, serum SODIUM 140 mmol/L [phone] Mar 23, potassium, serum POTASSIUM 4.0 mmol/L [...] Mar 23, cholesterol, serum CHOLESTEROL 139 mg/dl [phone] Mar 23, HDL cholesterol, HDL 47 mg/dl 26-62 2013 serum Mar 23, LDL cholesterol, LDL 79 mg/dl 0-130 2013 serum Mar 23, thyroid stimulating TSH 2.23 0.34-5.60 2013 hormone, serum uIU/mL Sep 25, sodium, serum SODIUM 138 mmol/L [phone] Sep 25, potassium, serum POTASSIUM 3.9 mmol/L [...] Sep 25, alanine SGPT (ALT) 21 U/L -43 2014 aminotransferase (SGPT), serum Sep 25, cholesterol, serum CHOLESTEROL 140 mg/dl [phone] Sep 25, HDL cholesterol, HDL 42 mg/dl -62 2014 serum Sep 25, LDL cholesterol, LDL 74 mg/dl 0-130 2014 serum
[2018-01-11] MEDS ORDERED: NITROGLYCERIN 0.4 MG/TAB SL ONE (15:56)
[2018-01-11 16:18] LABS: Absolute Lymphocytes (CBC) 1.7 K/uL (0.7-4.9); Absolute Monocytes 0.5 K/uL (0.1-1.3); Absolute Neutrophil 3.2 K/uL (1.8-8.0); Basophils % 1.2 % (0-1.3); Eosinophils % 2.4 % (0-4.4); Hematocrit 38.8 % (39.6-49.0); Lymphocytes % 30.1 % (15.3-44.8); MCH 28.4 pg (27.0-35.0); MPV 9.1 fL (7.6-11.3); Monocytes % 9.1 % (3.3-12.3); RBC Red Blood Cell Count 4.46 M/uL (4.33-5.43)
[2018-01-11] MEDS ORDERED: NA CHLORIDE 0.9% 500 ML ONE (16:20)
[2018-01-11] MEDS ORDERED: FENTANYL CITR 100 MCG/2 ML ONE (16:22)
[2018-01-11 16:25] LABS: Protime INR 1.03
[2018-01-11 16:41] LABS: Albumin 3.5 g/dL (3.4-5.0); Bilirubin Direct 0.1 mg/dL (0-0.2); Bilirubin Total 0.5 mg/dL (0.2-1.0); CKMB Creatine Kinase MB 1.1 ng/mL (0.3-3.6); Magnesium 2.1 mg/dL (1.8-2.4); Potassium 3.8 mmol/L (3.5-5.1); Protein, Total 6.9 g/dL (6.4-8.2)
--- NOTE | 2018-01-11 16:52 | EDPHYS ---
Physician Documentation [facility] Name: Zak Hastings Age: 77 yrs Sex: Male : 1940 Arrival Date: 01/11/2018 Time: 15:25 Bed 5 Private MD: Out, [facility] ED Physician Shola Dumont HPI: 01/11 16:00 This 77 yrs old Male presents to ER via Wheelchair with complaints of Chest pm1 Pain > 30 y/o. 16:00 The patient or guardian reports chest pain that is located primarily in the substernal pm1 area. Onset: Between 1400 - 1430. The pain radiates to the left shoulder. Associated signs and symptoms: Pertinent positives: shortness of breath, Pertinent negatives: abdominal pain, cough, diaphoresis, dizziness, headache, nausea, palpitations, vomiting. The chest pain is described as a heaviness, a pressure. Duration: The patient or guardian reports a single episode. 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 Severity of pain: in the emergency department the pain has improved 8 at worse at home. Currently 6/10. Patient with chest pain and pressure onset around 1400 to 1430 today after lifting a ladder. SOB present with pain. Patient sat down and took a nitro which relieved his pain to 4/10. Patient came to the ER because his chest pain did not resolve completely. Patient had chest pain and shortness of breath 1 week ago while mowing the lawn that resolved with rest, no nitro. Patient with stent x 1 in the . Historical: - Allergies: 15:42 PENICILLINS; ss 15:42 QUINOLONES; ss - Home Meds: 15:42 Lipitor 20 mg Oral tab 1 tab once daily [Active]; ranitidine HCl 150 mg Oral tab 2 tabs ss once daily [Active]; lisinopril-hydrochlorothiazide 10-12.5 mg oral tab 1 tab once daily [Active]; aspirin 81 mg Oral TbEC 1 tab once every other day [Active]; Xalatan 0.005 % Opht drop 1 drop once daily [Active]; loratadine 10 mg oral tab 1 tab once daily [Active]; Xarelto 20 mg oral tab 1 tab once daily [Active]; - PMHx: 15:42 Hypertension; Atrial Fib; prostate CA; ss - PSHx: 15:42 cardiac stent; Hernia repair; Knee surgery; hydrocele; eye sx; ss - Immunization history:: Adult Immunizations up to date. - Social history:: Smoking status: Patient/guardian denies using tobacco. - Ebola Screening: : Patient denies exposure to infectious person Patient denies travel to an Ebola-affected area in the 21 days before illness onset. ROS: 16:00 Constitutional: Negative for fever, chills, and weight loss, Eyes: Negative for injury, pm1 pain, redness, and discharge, ENT: Negative for injury, pain, and discharge, Neck: Negative for injury, pain, and swelling. 16:00 Abdomen/GI: Negative for abdominal pain, nausea, vomiting, diarrhea, and constipation. 16:00 Back: Negative for injury and pain, : Negative for injury, bleeding, discharge, and swelling, MS/Extremity: Negative for injury and deformity, Skin: Negative for injury, rash, and discoloration, Neuro: Negative for headache, weakness, numbness, tingling, and seizure. 16:00 Cardiovascular: Positive for chest pain, Negative for edema, palpitations. 16:00 Respiratory: Positive for shortness of breath, Negative for cough. Exam: 16:00 Constitutional: This is a well developed, well nourished patient who is awake, alert, pm1 and in no acute distress. Head/Face: Normocephalic, atraumatic. Eyes: Pupils equal round and reactive to light, extra-ocular motions intact. Lids and lashes normal. Conjunctiva and sclera are non-icteric and not injected. Cornea within normal limits. Periorbital areas with no swelling, redness, or edema. ENT: Nares patent. No nasal discharge, no septal abnormalities noted. Tympanic membranes are normal and external auditory canals are clear. Oropharynx with no redness, swelling, or masses, exudates, or evidence of obstruction, uvula midline. Mucous membranes moist. Neck: Trachea midline, no thyromegaly or masses palpated, and no cervical lymphadenopathy. Supple, full range of motion without nuchal rigidity, or vertebral point tenderness. No Meningismus. Chest/axilla: Normal chest wall appearance and motion. Nontender with no deformity. No lesions are appreciated. Cardiovascular: Regular rate and rhythm with a normal S1 and S2. No gallops, murmurs, or rubs. Normal PMI, no JVD. No pulse deficits. 16:00 Respiratory: Lungs have equal breath sounds bilaterally, clear to auscultation and percussion. No rales, rhonchi or wheezes noted. No increased work of breathing, no retractions or nasal flaring. Abdomen/GI: Soft, non-tender, with normal bowel sounds. No distension or tympany. No guarding or rebound. No evidence of tenderness throughout. Back: No spinal tenderness. No costovertebral tenderness. Full range of motion. Skin: Warm, dry with normal turgor. Normal color with no rashes, no lesions, and no evidence of cellulitis. MS/ Extremity: Pulses equal, no cyanosis. Neurovascular intact. Full, normal range of motion. 16:00 NSR 16:00 Neuro: Orientation: is normal, Mentation: is normal, Motor: moves all fours. Vital Signs: 15:42 BP 124 / 69; Pulse 80; Resp 16; Pulse Ox 97% on R/A; Weight 90.72 kg; Height 6 ft. 0 ss in. (182.88 cm); Pain 5/10; 16:09 BP 92 / 62; Pulse 84; Pulse Ox 95% ; sv 16:39 BP 115 / 70; Pulse 55; Resp 17; Pulse Ox 100% on R/A; tw2 17:50 BP 113 / 62; Pulse 58; Resp 17; Pulse Ox 97% on R/A; tw2 18:28 BP 131 / 78; Pulse 59; Resp 17; Pulse Ox 97% on R/A; tw2 15:42 Body Mass Index 27.12 (90.72 kg, 182.88 cm) MDM: 15:33 Patient medically screened. pm1 16:51 Data reviewed: vital signs. Data interpreted: Pulse oximetry: on room air is 100 %. pm1 Interpretation: normal. Counseling: I had a detailed discussion with the patient and/or guardian regarding: the historical points, exam findings, and any diagnostic results supporting the discharge/admit diagnosis, lab results, radiology results, the need for further work-up and treatment in the hospital. 16:51 ED course: Patient refused second dose of fentanyl. Fentanyl was used for pain due to pm1 nitro causing some hypotension. Patient given Iv fluid bolus. Reports chest pain has improved with initial fentanyl dosage. 17:00 ED course: Aspirin and Lovenox not given in ER since patient took Aspirin 650 mg PO pm1 prior to arrival and took his Xarelto last night. 17:08 Physician consultation: Sandra Almaguer MD was contacted at 17:08, regarding admission, pm1 patient's condition, and will see patient in ED. 01/11 15:38 Order name: Basic Metabolic Panel; Complete Time: 16:43 tw01/11 15:38 Order name: CBC with Diff; Complete Time: 16:31 tw01/11 15:38 Order name: Ckmb; Complete Time: 16:43 tw01/11 15:38 Order name: CPK; Complete Time: 16:43 01/11 15:38 Order name: LFT's; Complete Time: 16:43 01/11 15:38 Order name: Magnesium; Complete Time: 16:43 01/11 15:38 Order name: NT PRO-BNP; Complete Time: 16:43 01/11 15:38 Order name: PT-INR; Complete Time: 16:31 01/11 15:38 Order name: Ptt, Activated; Complete Time: 16:31 01/11 15:38 Order name: Troponin (emerg Dept Use Only); Complete Time: 16:43 01/11 15:38 Order name: XRAY Chest (1 view); Complete Time: 18:06 tw01/11 17:31 Order name: Echo with Doppler EDND 01/11 18:23 Order name: Urine Dipstick--Ancillary (enter results) ag 01/11 19:07 Order name: Urine Dipstick-Ancillary; Complete Time: 20:10 EDMS 01/11 15:38 Order name: EKG; Complete Time: 15:38 tw2 01/11 15:38 Order name: Cardiac monitoring; Complete Time: 16:23 01/11 15:38 Order name: EKG - Nurse/Tech; Complete Time: 16:23 01/11 15:38 Order name: IV Saline Lock; Complete Time: 16:23 01/11 15:38 Order name: Labs collected and sent; Complete Time: 16:24 01/11 15:38 Order name: O2 Per Protocol; Complete Time: 16:24 01/11 15:38 Order name: O2 Sat Monitoring; Complete Time: 16:24 tw2 01/11 15:38 Order name: Urine Dipstick-Ancillary (obtain specimen); Complete Time: 18:33 tw2 Administered Medications: 15:54 Drug: Nitroglycerin 0.4 mg Route: Sublingual; ss 16:00 Follow up: Response: No adverse reaction; Pain is decreased; Pain is decreased but tw2 quickly returned, pressure lowered to 92/62, then 88/65, Shanel Craven at bedside 16:20 Drug: fentaNYL (PF) 25 mcg Route: IVP; Site: right antecubital; tw2 17:50 Follow up: Response: No adverse reaction; Pain is decreased tw2 16:20 Drug: NS 0.9% 500 ml Route: IV; Rate: bolus; Site: right antecubital; tw2 17:49 Follow up: Response: No adverse reaction; IV Status: Completed infusion; IV Intake: tw2 500ml 16:50 CANCELLED (Patient Refused): fentaNYL (PF) 25 mcg IVP once ss Disposition: 01/12 09:36 Co-signature as Attending Physician, Shola Dumont MD I agree with the assessment and cristiane plan of care. Disposition: 01/11/18 16:52 Hospitalization ordered by Sandra Almaguer for Observation. Preliminary diagnosis is Chest pain, unspecified. - Bed requested for Telemetry/MedSurg (observation). - Status is Observation. bb - Condition is Stable. - Problem is new. - Symptoms have improved. UTI on Admission? No Signatures: Dispatcher [employer] Zoraida Bergman RN RN dw Anderson, Corey, MD MD cha Ballard, Brenda RN RN Shae Pandey RN RN ss Abhilash Craven NP HEALTHCARE SPECIALIST pm1 May Phelan RN RN tw2 Corrections: (The following items were deleted from the chart) 01/11 16:50 16:44 fentaNYL (PF) 25 mcg IVP once ordered. pm1 ss 18:17 16:52 Hospitalization Ordered by Sandra Almaguer MD for Observation. Preliminary dw diagnosis is Chest pain, unspecified. Bed requested for Telemetry/MedSurg (observation). Status is Observation. Condition is Stable. Problem is new. Symptoms have improved. UTI on Admission? No. pm1 20:21 18:17 01/11/2018 16:52 Hospitalization Ordered by Sandra Almaguer MD for Observation. bb Preliminary diagnosis is Chest pain, unspecified. Bed requested for Telemetry/MedSurg (observation). Status is Observation. Condition is Stable. Problem is new. Symptoms have improved. UTI on Admission? No. dw
--- NOTE | 2018-01-11 16:52 | ER ---
Nurse's Notes [facility] Name: Zak Hastings Age: 77 yrs Sex: Male : 1940 Arrival Date: 01/11/2018 Time: 15:25 Bed 5 Private MD: Out, [facility] Diagnosis: Chest pain, unspecified Presentation: 01/11 15:25 Presenting complaint: Patient states: lifting heavy ladder approx 40 minutes ago, when ss patient began experiencing chest discomfort that seemed to radiate up to his throat. Pt states he to 81 mg ASA tablets x2 and a nitro, reporting his chest pain improved some since then. Transition of care: patient was not received from another setting of care. Onset of symptoms was January 11, 2018. Risk Assessment: Do you want to hurt yourself or someone else? Patient reports no desire to harm self or others. Initial Sepsis Screen: Does the patient meet any 2 criteria? No. Patient's initial sepsis screen is negative. Does the patient have a suspected source of infection? No. Patient's initial sepsis screen is negative. Care prior to arrival: None. 15:25 Method Of Arrival: Wheelchair ss 15:25 Acuity: BRUCE 3 ss Historical: - Allergies: 15:42 PENICILLINS; ss 15:42 QUINOLONES; ss - Home Meds: 15:42 Lipitor 20 mg Oral tab 1 tab once daily [Active]; ranitidine HCl 150 mg Oral tab 2 tabs ss once daily [Active]; lisinopril-hydrochlorothiazide 10-12.5 mg oral tab 1 tab once daily [Active]; aspirin 81 mg Oral TbEC 1 tab once every other day [Active]; Xalatan 0.005 % Opht drop 1 drop once daily [Active]; loratadine 10 mg oral tab 1 tab once daily [Active]; Xarelto 20 mg oral tab 1 tab once daily [Active]; - PMHx: 15:42 Hypertension; Atrial Fib; prostate CA; ss - PSHx: 15:42 cardiac stent; Hernia repair; Knee surgery; hydrocele; eye sx; ss - Immunization history:: Adult Immunizations up to date. - Social history:: Smoking status: Patient/guardian denies using tobacco. - Ebola Screening: : Patient denies exposure to infectious person Patient denies travel to an Ebola-affected area in the 21 days before illness onset. Screenin:25 Abuse screen: Denies threats or abuse. Nutritional screening: No deficits noted. tw2 Tuberculosis screening: No symptoms or risk factors identified. Fall Risk None identified. Assessment: 15:25 General: Appears in no apparent distress. Behavior is calm, cooperative, appropriate tw2 for age. Pain:. 15:25 Pain: Complains of pain in chest and left arm Pain radiates to left arm. Pain: Pain tw2 began 1 hour ago. Neuro: Level of Consciousness is. Neuro: Level of Consciousness is awake, alert, obeys commands, Oriented to person, place, situation. Cardiovascular: Reports chest pain, Heart tones S1 S2 Patient's skin is warm and dry. Respiratory: Airway is patent Respiratory effort is even, unlabored, Respiratory pattern is regular, symmetrical, Breath sounds are clear bilaterally. GI: No signs and/or symptoms were reported involving the gastrointestinal system. Abdomen is flat, Bowel sounds present X 4 quads. : No signs and/or symptoms were reported regarding the genitourinary system. EENT: No signs and/or symptoms were reported regarding the EENT system. Derm: No signs and/or symptoms reported regarding the dermatologic system. Musculoskeletal: Range of motion: intact in all extremities. 16:24 Reassessment: No changes from previously documented assessment. Patient and/or family tw2 updated on plan of care and expected duration. Pain level reassessed. Patient is alert, oriented x 3, equal unlabored respirations, skin warm/dry/pink. 16:39 Reassessment: No changes from previously documented assessment. Patient and/or family tw2 updated on plan of care and expected duration. Pain level reassessed. Patient is alert, oriented x 3, equal unlabored respirations, skin warm/dry/pink. 17:51 Reassessment: No changes from previously documented assessment. Patient and/or family tw2 updated on plan of care and expected duration. Pain level reassessed. Patient is alert, oriented x 3, equal unlabored respirations, skin warm/dry/pink. 18:29 Reassessment: No changes from previously documented assessment. Patient and/or family tw2 updated on plan of care and expected duration. Pain level reassessed. Patient is alert, oriented x 3, equal unlabored respirations, skin warm/dry/pink. 19:31 Reassessment: pt ambulated with steady gait to the bathroom. bb Vital Signs: 15:42 BP 124 / 69; Pulse 80; Resp 16; Pulse Ox 97% on R/A; Weight 90.72 kg; Height 6 ft. 0 ss in. (182.88 cm); Pain 5/10; 16:09 BP 92 / 62; Pulse 84; Pulse Ox 95% ; sv 16:39 BP 115 / 70; Pulse 55; Resp 17; Pulse Ox 100% on R/A; tw2 17:50 BP 113 / 62; Pulse 58; Resp 17; Pulse Ox 97% on R/A; tw2 18:28 BP 131 / 78; Pulse 59; Resp 17; Pulse Ox 97% on R/A; tw2 15:42 Body Mass Index 27.12 (90.72 kg, 182.88 cm) ss ED Course: 15:25 Patient arrived in ED. sb2 15:25 Out, of Town is Private Physician. sb2 15:25 Placed in gown. Bed in low position. Adult w/ patient. bus driver/monitor on. Pulse ox on. tw2 NIBP on. 15:33 Abhilash Craven NP is PHCP. pm1 15:33 Shola Dumont MD is Attending Physician. pm1 15:36 May Phelan RN is Primary Nurse. tw2 15:36 Triage completed. ss 15:36 No provider procedures requiring assistance completed. Inserted saline lock: 20 gauge tw2 in right antecubital area, using aseptic technique. Blood collected. Patient maintains SpO2 saturation greater than 95% on room air. 15:42 Arm band placed on right wrist. ss 15:51 X-ray completed. Portable x-ray completed in exam room. Patient tolerated procedure sw well. 15:52 XRAY Chest (1 view) In Process Unspecified. EDMS 15:52 EKG done, by armored service technician. reviewed by Abhilash Craven NP. sm3 16:51 Ramsey Almaguer DO is Hospitalizing Provider. pm1 16:51 Hospitalizing Provider role handed off by Ramsey Almaguer DO pm1 16:51 Sandra Almaguer MD is Hospitalizing Provider. pm1 18:57 Report given to WARNER Yadav and WARNER Summers. tw2 20:01 Patient admitted, IV remains in place. bb Administered Medications: 15:54 Drug: Nitroglycerin 0.4 mg Route: Sublingual; ss 16:00 Follow up: Response: No adverse reaction; Pain is decreased; Pain is decreased but tw2 quickly returned, pressure lowered to 92/62, then 88/65, Shanel Craven at bedside 16:20 Drug: fentaNYL (PF) 25 mcg Route: IVP; Site: right antecubital; tw2 17:50 Follow up: Response: No adverse reaction; Pain is decreased tw2 16:20 Drug: NS 0.9% 500 ml Route: IV; Rate: bolus; Site: right antecubital; tw2 17:49 Follow up: Response: No adverse reaction; IV Status: Completed infusion; IV Intake: tw2 500ml 16:50 CANCELLED (Patient Refused): fentaNYL (PF) 25 mcg IVP once ss Intake: 17:49 IV: 500ml; Total: 500ml. tw2 Outcome: 16:52 Decision to Hospitalize by Provider. pm1 20:01 Admitted to Tele accompanied by [facility], via wheelchair, room 209, with chart, Report bb called to Kimberly Diamond [facility] 20:01 Condition: stable 20:01 Instructed on the need for admit. 20:21 Patient left the ED. bb Signatures: Dispatcher [employer] EDMary Kay Cleaning RN RN sv Ballard, Brenda, RN RN bb Smirch, Shelby, RN RN ss Warren, Shannon sw Marinas, Patrick, ASHLY SOLE BUFFER pm1 May Phelan RN RN tw2 Sharon Moreau sb2 Kendal Chowdary sm3 Corrections: (The following items were deleted from the chart) 17:55 15:25 General: Appears in no apparent distress. Behavior is calm, cooperative, tw2 appropriate for age, tw2
--- NOTE | 2018-01-11 17:36 | P.HP ---
Certification for Inpatient Patient admitted to: Inpatient With expected LOS: >2 Midnights Patient will require the following post-hospital care: None Practitioner: I am a practitioner with admitting privileges, knowledge of patient current condition, hospital course, and medical plan of care. Services: Services provided to patient in accordance with Admission requirements found in Title 42 Section 412.3 of the Code of Federal Regulations Patient History Date of Service: 01/11/18 Primary Care Provider: Cardiology and PCP in [facility] Reason for admission: Chest pain History of Present Illness: This is a 69-year-old male with significant past medical history of hypertension , paroxysmal atrial fibrillation and CAD with Stent Placement in 1998, who presented to the ED complaining of having some chest pain. Patient stated that about a week ago he was mowing his lawn and started having some substernal chest pain and shortness of breath so he stopped mowing the lawn and rested for a day. Chest pain resolved and he did not think anything of it. The next day patient started working in his yd again and did not notice having any other chest pain does seem not follow up with his primary care doctor or electrical installation inspector at this point. Patient stated that this morning however around 8:00 a.m. he was working out in the yd and picking up a heavy ladder when he started noticing that he was having chest pain in the left substernal area which was radiating up to his left shoulder and down the arm. Patient was also having numbness and tingling to the left arm. Patient stated that he felt like his chest was getting tight and heaviness in that area. Patient stated that he sees a electrical installation inspector in [facility] along with his primary care doctor over there is well. Patient has a history of stent placement in 1998 after which she has not had any other complications with his heart. Patient stated that less than a year ago he had a chemical stress test done which was negative for any acute ischemia. Patient also states that he had an echocardiogram done a month ago which was also within normal limits. Patient stated that when the chest pain started this morning having 8/10 and he took 1 nitroglycerin which is chest pain and then his chest pain was 2/10. He also had difficulty breathing at that time and does he got worried and decided to come to the ER. In the ER patient was found to have a troponin x1 negative EKG with sinus rhythm and other lab work were within normal limits. Patient was then admitted to the hospital for unstable angina. Home medications list reviewed: Yes - Past Medical/Surgical History -: HTN -: Afib -: CAD -: Prostate CA -: Stent Placement 1998 -: Hernia Repair - Family History Family History: Reviewed- Non-Contributory - Social History Smoking Status: Never smoker Smoking therapy provided: No Alcohol use: No CD- Drugs: No Caffeine use: No Place of Residence: Home Review of Systems General: As per HPI Physical Examination - Physical Exam General: Alert, Oriented x3, Mild distress HEENT: Atraumatic, PERRLA, Mucous membr. moist/pink, EOMI, Sclerae nonicteric Neck: Supple, 2+ carotid pulse no bruit, No LAD, Without JVD or thyroid abnormality Respiratory: Clear to auscultation bilaterally, Normal air movement Cardiovascular: Regular rate/rhythm, Normal S1 S2 Gastrointestinal: Normal bowel sounds, No tenderness Musculoskeletal: No tenderness Integumentary: No rashes Neurological: Normal speech, Normal strength at 5/5 x4 extr, Normal tone Lymphatics: No axilla or inguinal lymphadenopathy - Studies Laboratory Data (last 24 hrs) 01/11/18 15:35: PT 12.1, INR 1.03, APTT 26.9 01/11/18 15:35: WBC 5.6, Hgb 12.7 L, Hct 38.8 L, Plt Count 206 01/11/18 15:35: Sodium 140, Potassium 3.8, BUN 15, Creatinine 1.00, Glucose 108 H, Magnesium 2.1, Total Bilirubin 0.5, AST 18, ALT 23, Alkaline Phosphatase 105 Assessment and Plan - Problems (Diagnosis) (1) Unstable angina Current Visit: Yes Status: Acute Plan: Left-sided chest pain radiating to the left shoulder and left arm with numbness and tingling. -Troponin x1 negative in the ER. EKG sinus rhythm -will repeat troponin x2 year in the hospital -will get cardiology consultation at this time will await recommendations -given that patient recently had a chemical stress test would try to obtain the results from his primary care doctor or the electrical installation inspector. Given the past medical history and high risk for CAD patient may need heart catheterization during this hospital at visit. Will discuss with cardiology further. -will get an echocardiogram done at this time. -patient will be started on aspirin, Lipitor, metoprolol, weight based Lovenox, oxygen and pain management (2) HTN (hypertension) Current Visit: Yes Status: Chronic Plan: Will restart home medication. Currently stable Qualifiers: Hypertension type: essential hypertension Qualified Code(s): I10 - Essential (primary) hypertension (3) Afib Current Visit: Yes Status: Chronic Plan: Patient with a history of proximal small AFib. Currently EKG with sinus rhythm. -patient is not on any rate control medication at this time. -He is taking anti coagulation medication Xarelto. Qualifiers: Atrial fibrillation type: paroxysmal Qualified Code(s): I48.0 - Paroxysmal atrial fibrillation Discharge Plan: Home Plan to discharge in: 48 Hours - Advance Directives Does patient have a Living Will: No Does patient have a Durable POA for Healthcare: No - Code Status/Comfort Care Code Status Assessed: Yes Critical Care: No
--- NOTE | 2018-01-11 18:02 | RAD REPORT ---
EXAM DESCRIPTION: Chucky Single View01/11/2018 3:55 pm CLINICAL HISTORY: Chest pain COMPARISON: April 2013 FINDINGS: The lungs appear clear of acute infiltrate. The heart is mildly enlarged. A moderate hiatal hernia is seen. IMPRESSION: No acute abnormalities displayed
[2018-01-11 19:07] LABS: Urine Blood NEGATIVE (NEG); Urine Glucose NEGATIVE (NEG); Urine Protein NEGATIVE (NEG); Urine Specific Gravity 1.015 (1.005-1.030); Urine pH 8.5 (5.0-7.0)
[2018-01-11] MEDS ORDERED: ACETAMINOPHEN 500 MG TAB PO PRN (20:32)
[2018-01-11] MEDS ORDERED: ONDANSETRON 4 MG/2 ML VIAL IV PRN (20:32)
--- NOTE | 2018-01-11 20:36 | EKG ---
Test Date: 2018-01-11 Test Time: 15:32:59 Blocklayer: TIMMY MEASUREMENT RESULTS: Intervals: Rate: 78 MS: 162 QRSD: 94 QT: 368 QTc: 419 [place]: P: 28 MS: 162 QRS: 24 T: 4 INTERPRETIVE STATEMENTS: Normal sinus rhythm Normal ECG Compared to ECG 05/17/2013 09:43:14 Myocardial infarct finding no longer present Electronically Signed On 01-11-18 20:35:43 CDT by Benito Kunz
[2018-01-11] MEDS: ATORVASTATIN 40 MG TAB PO SCH (21:00)
[2018-01-11] MEDS ORDERED: ENOXAPARIN 100 MG/ML SYR SQ ONE (23:05)
[2018-01-12 05:15] LABS: Absolute Lymphocytes (CBC) 1.8 K/uL (0.7-4.9); Absolute Monocytes 0.5 K/uL (0.1-1.3); Absolute Neutrophil 2.8 K/uL (1.8-8.0); Basophils % 1.1 % (0-1.3); Eosinophils % 3.8 % (0-4.4); Hematocrit 37.4 % (39.6-49.0); Lymphocytes % 33.5 % (15.3-44.8); MCH 28.5 pg (27.0-35.0); MCV 85.7 fL (80-100); MPV 8.9 fL (7.6-11.3); Monocytes % 9.6 % (3.3-12.3); RBC Red Blood Cell Count 4.36 M/uL (4.33-5.43)
[2018-01-12 05:47] LABS: Albumin 3.4 g/dL (3.4-5.0); Bilirubin Total 0.6 mg/dL (0.2-1.0); Magnesium 2.1 mg/dL (1.8-2.4); Phosphorus 3.1 mg/dL (2.5-4.9); Potassium 3.9 mmol/L (3.5-5.1); Protein, Total 6.3 g/dL (6.4-8.2)
[2018-01-12] MEDS: METOPROLOL TAR 25 MG TAB PO SCH (06:24)
[2018-01-12] MEDS ORDERED: KCL 20 MEQ/100 mL IVPB 20 MEQ/100 ML BAG IV SCH (07:15)
[2018-01-12] MEDS ORDERED: POTASSIUM 25 MEQ EFFERV TAB PO ONE (08:33)
[2018-01-12] MEDS: ASPIRIN EC 81 MG TAB PO SCH (09:00)
[2018-01-12] MEDS: HOME MED 1 EA UNK (Latanoprost/Pf [Latanoprost 0.005% Eye Drop] 1 DROP) EACH EYE SCH (09:00)
[2018-01-12] MEDS: GABAPENTIN 300 MG CAP PO SCH ×3 (09:23→20:45)
[2018-01-12] MEDS: PANTOPRAZOLE 40MG TABLET PO SCH (09:24)
--- NOTE | 2018-01-12 11:49 | P.PN ---
Subjective Date of Service: 01/12/18 Primary Care Provider: Dr. Jackson; Cardiology-Dr. Craft([place], [place]) Chief Complaint: Chest pain Subjective: Improving Physical Examination - Vital Signs Temperature: 97.9 F Blood Pressure: 143/70 Pulse: 43 Respirations: 16 Pulse Ox (%): 96 - Physical Exam General: Alert, In no apparent distress, Oriented x3, Cooperative HEENT: Atraumatic Neck: Supple Respiratory: Clear to auscultation bilaterally, Normal air movement Cardiovascular: Normal pulses, Regular rate/rhythm Gastrointestinal: Normal bowel sounds, Soft and benign, Non-distended, No tenderness, No masses, No rebound, No guarding Musculoskeletal: No erythema, No tenderness, No warmth Integumentary: No tenderness/swelling, No erythema, No warmth, No cyanosis Neurological: Normal speech, Normal strength at 5/5 x4 extr, Normal tone, Normal affect - Studies Laboratory Data (last 24 hrs) 01/11/18 15:35: PT 12.1, INR 1.03, APTT 26.9 01/11/18 15:35: WBC 5.6, Hgb 12.7 L, Hct 38.8 L, Plt Count 206 01/11/18 15:35: Sodium 140, Potassium 3.8, BUN 15, Creatinine 1.00, Glucose 108 H, Magnesium 2.1, Total Bilirubin 0.5, AST 18, ALT 23, Alkaline Phosphatase 105 Medications List Reviewed: Yes Assessment & Plan - Problems (Diagnosis) (1) Chest pain Current Visit: Yes Status: Acute Plan: Patient with chest pain. Patient was to have heart catheterization today but he took Xarelto last night. Case discussed with Cardiology. Cardiology plans for heart catheterization tomorrow. Qualifiers: Ischemic chest pain type: unstable angina pectoris (2) Unstable angina Onset Date: 01/12/18 Current Visit: Yes Status: Acute Plan: Heart catheterization planned for tomorrow (3) Afib Onset Date: 01/12/18 Current Visit: Yes Status: Chronic Plan: Patient with paroxysmal atrial fibrillation. Will continue with DVT prophylaxis Qualifiers: Atrial fibrillation type: paroxysmal Qualified Code(s): I48.0 - Paroxysmal atrial fibrillation (4) HTN (hypertension) Onset Date: 01/12/18 Current Visit: Yes Status: Chronic Plan: Continue with medication. Qualifiers: Hypertension type: essential hypertension Qualified Code(s): I10 - Essential (primary) hypertension (5) Hyperlipidemia Current Visit: Yes Status: Chronic Plan: Will check lipid panel. Will continue with medication Qualifiers: Hyperlipidemia type: unspecified Qualified Code(s): E78.5 - Hyperlipidemia , unspecified Discharge Plan: Home Plan to discharge in: 48 Hours Time Spent Managing Pts Care (In Minutes): 55
--- NOTE | 2018-01-12 13:04 | ECHO ---
HEIGHT: 6 ft 0 in WEIGHT: 205 lb 0 oz DATE OF STUDY: 01/12/[address]: Sandra Almaguer MD 2-DIMENSIONAL: YES M.MODE: YES DOPPLER: YES COLOR FLOW: YES TDS: PORTABLE: DEFINITY: BUBBLE STUDY: DIAGNOSIS: UNSTABLE ANGINA CARDIAC HISTORY: CATHERIZATION: SURGERY: PROSTHETIC VALVE: PACEMAKER: MEASUREMENTS (cm) DIASTOLIC (NORMALS) SYSTOLIC (NORMALS) IVSd 1.1 (0.6-1.2) LA Diam 3.4 (1.9-4.0) LVEF 69% LVIDd 4.8 (3.5-5.7) LVIDs 2.9 (2.0-3.5) %FS 39% LVPWd 1.0 (0.6-1.2) Ao Diam 3.0 (2.0-3.7) 2 DIMENSIONAL ASSESSMENT: RIGHT ATRIUM: NORMAL LEFT ATRIUM: NORMAL RIGHT VENTRICLE: NORMAL LEFT VENTRICLE: NORMAL TRICUSPID VALVE: NORMAL MITRAL VALVE: NORMAL PULMONIC VALVE: NORMAL AORTIC VALVE: SCLEROSIS PERICARDIAL EFFUSION: NONE AORTIC ROOT: NORMAL LEFT VENTRICULAR WALL MOTION: NORMAL DOPPLER/COLOR FLOW: MILD TRICUSPID REGURGITATION. COMMENTS: MILD TRICUSPID REGURGITATION. NORMAL RIGHT VENTRICULAR SYSTOLIC PRESSURE. NORMAL LEFT VENTRICULAR SIZE AND FUNCTION. AORTIC SCLEROSIS WITH NO STENOSIS. TECHNOLOGIST: ALESSANDRO ADAMS
[2018-01-12] MEDS: ENOXAPARIN 40 MG/0.4 ML SQ SCH (16:51)
[2018-01-12] MEDS: ATORVASTATIN 40 MG TAB PO SCH (20:44)
--- NOTE | 2018-01-13 03:22 | CON ---
Date of Consultation: 01/12/[address] Almaguer's service on 01/11/2018. I saw the patient on 01/12/2018. Reason For Consultation: Unstable angina. History Of Present Illness: Mr. Hastings is a 77-year-old white male. He used to be cared for by Dr. Ward at [place] . He has a history of hypertension, dyslipidemia, gastroesophageal r eflux disease, atrial fibrillation, prostate cancer, has had a history of stent. This sounds like it was in the RCA many years ago. Had a stress test by Dr. Ward about a year and half ago which was no rmal, but came into the emergency room because of unstable angina. When he mows his lawn, he has radhika st pressure radiating to the jaw and both arms after about 20 to 30 minutes. This has been going on for about a week, but yesterday his symptoms did not go away. He came in and had a negative workup a s far as EKG and troponin, BNP, and CPK. He is feeling well right now on Lovenox, aspirin, and beta- blockers. Allergies: HE IS ALLERGIC TO PENICILLIN AND QUINOLONE. Review of Systems: Negative. Social History: Negative for tobacco, drugs, or alcohol. Family History: Positive for heart disease. Medications: At home include Xarelto, Lipitor, Neurontin, lisinopril with HCT, and Zantac. Physical Examination: Vital Signs: Stable. He was afebrile. HEENT: Negative. Neck: Supple without any bruit, lymphadenopathy, JVD, or thyromegaly. Chest: Clear to auscultation and percussion. Cardiac: Exam revealed an irregular rhythm and rate without any murmurs, gallops, or rubs. Abdomen: Benign. Extremities: Revealed no clubbing, cyanosis, or edema. Diagnostic Data: As stated earlier. Impression And Plan: 1.Acute coronary syndrome with unstable angina, classic symptoms. The patient has been ruled out fo r a myocardial infarction, but he definitely needs to have a heart catheterization to re-evaluate his coronary anatomy. He understand the risk and the benefit of the procedure. The last dose of Xarelt o was yesterday approximately 12 hours ago. We plan to do the catheterization on Thursday morning, we should be passed 36 hours from his last Xarelto dose. I will continue Lovenox, aspirin as well as beta-blockers for now. 2.His other problem includes hypertension, well controlled. 3.Dyslipidemia, on Lipitor. 4.Gastroesophageal reflux disease. 5.Atrial fibrillation that is chronic. 6.History of prostate cancer that is resolved. We will follow the patient along with Dr. Almaguer. GARRET/ELLEN Voice ID: [id number] Report ID: [id number]
[2018-01-13 04:58] LABS: Absolute Lymphocytes (CBC) 1.7 K/uL (0.7-4.9); Absolute Monocytes 0.6 K/uL (0.1-1.3); Absolute Neutrophil 3.6 K/uL (1.8-8.0); Eosinophils % 4.6 % (0-4.4); Lymphocytes % 27.6 % (15.3-44.8); MCH 28.8 pg (27.0-35.0); MPV 8.6 fL (7.6-11.3); Monocytes % 9.5 % (3.3-12.3); RBC Red Blood Cell Count 4.42 M/uL (4.33-5.43)
[2018-01-13 05:28] LABS: Albumin 3.3 g/dL (3.4-5.0); Bilirubin Total 0.6 mg/dL (0.2-1.0); Magnesium 1.9 mg/dL (1.8-2.4); Phosphorus 3.2 mg/dL (2.5-4.9); Potassium 3.7 mmol/L (3.5-5.1); Protein, Total 6.3 g/dL (6.4-8.2); Thyroid Stimulating Hormone 2.65 uIU/mL (0.36-3.74)
[2018-01-13] MEDS: METOPROLOL TAR 25 MG TAB PO SCH (06:15)
[2018-01-13] MEDS: ASPIRIN EC 81 MG TAB PO SCH (06:15)
[2018-01-13] MEDS: PANTOPRAZOLE 40MG TABLET PO SCH (06:16)
[2018-01-13 06:40] VITALS: BMI 27.2
[2018-01-13] MEDS ORDERED: KCL 20 MEQ/100 mL IVPB 20 MEQ/100 ML BAG IV SCH (07:00)
[2018-01-13] MEDS ORDERED: NA CHLORIDE 0.9% 1,000 ML ONE (07:21)
[2018-01-13] MEDS: HOME MED 1 EA UNK (Latanoprost/Pf [Latanoprost 0.005% Eye Drop] 1 DROP) EACH EYE SCH (09:00)
[2018-01-13] MEDS: GABAPENTIN 300 MG CAP PO SCH ×3 (09:00→20:39)
[2018-01-13] MEDS ORDERED: NICARDIPINE HCL 25 MG/10 ML IV ONE (10:40)
[2018-01-13] MEDS ORDERED: HEPA 1000U/500MLS 2,000 UNIT/1,000 ML BAG IV ONE (10:40)
[2018-01-13] MEDS ORDERED: HEPARIN 5000 UNIT/ML 1 ML VIAL ONE (10:40)
[2018-01-13] MEDS ORDERED: LIDOCAINE 1% MPF 2 ML AMPULE ONE (10:40)
[2018-01-13] MEDS ORDERED: NA CHLORIDE 0.9% 50 ML ONE (10:41)
[2018-01-13] MEDS ORDERED: ATROPINE SULF 1 MG/10 ML SYR IV ONE (10:41)
[2018-01-13] MEDS ORDERED: NITROGLYCERIN/D5W 25 MG/250 ML BTL IV ONE (10:41)
[2018-01-13] MEDS ORDERED: MIDAZOLAM HCL 2 MG/2 ML INJ ONE ×2 (10:56→11:06)
[2018-01-13] MEDS ORDERED: FENTANYL CITR 100 MCG/2 ML ONE (10:57)
[2018-01-13] MEDS ORDERED: HEPA 1000U/500MLS 1,000 UNIT/500 ML BAG IV ONE (11:38)
--- NOTE | 2018-01-13 11:56 | P.PN ---
Subjective Date of Service: 01/13/18 Primary Care Provider: Dr. Jackson; Cardiology-Dr. Craft([place], [place]) Chief Complaint: Chest pain Subjective: Improving, Doing well Physical Examination - Vital Signs Temperature: 97.3 F Blood Pressure: 123/69 Pulse: 52 Respirations: 16 Pulse Ox (%): 92 - Physical Exam General: Alert, In no apparent distress, Oriented x3, Cooperative HEENT: Atraumatic Neck: Supple Respiratory: Clear to auscultation bilaterally, Normal air movement Cardiovascular: Normal pulses, Regular rate/rhythm Gastrointestinal: Normal bowel sounds, Soft and benign, Non-distended, No tenderness, No masses, No rebound, No guarding Musculoskeletal: No erythema, No tenderness, No warmth Integumentary: No tenderness/swelling, No erythema, No warmth, No cyanosis Neurological: Normal speech, Normal strength at 5/5 x4 extr, Normal tone - Studies Medications List Reviewed: Yes Assessment & Plan - Problems (Diagnosis) (1) Chest pain Current Visit: Yes Status: Acute Plan: Patient without chest pain at this time. Blood pressure controlled. Heart catheterization scheduled for today. Await evaluation and results. Qualifiers: Ischemic chest pain type: unstable angina pectoris (2) Unstable angina Onset Date: 01/12/18 Current Visit: Yes Status: Acute Plan: Heart catheterization planned for today. Await findings. (3) Afib Onset Date: 01/12/18 Current Visit: Yes Status: Chronic Plan: Patient with paroxysmal atrial fibrillation. Will continue with DVT prophylaxis Qualifiers: Atrial fibrillation type: paroxysmal Qualified Code(s): I48.0 - Paroxysmal atrial fibrillation (4) HTN (hypertension) Onset Date: 01/12/18 Current Visit: Yes Status: Chronic Plan: Continue with medication. Qualifiers: Hypertension type: essential hypertension Qualified Code(s): I10 - Essential (primary) hypertension (5) Hyperlipidemia Current Visit: Yes Status: Chronic Plan: Lipid panel within normal range. Will continue with medication. Qualifiers: Hyperlipidemia type: unspecified Qualified Code(s): E78.5 - Hyperlipidemia , unspecified Discharge Plan: Home Plan to discharge in: 24 Hours - Code Status/Comfort Care Code Status Assessed: Yes Code Status: Full Code Time Spent Managing Pts Care (In Minutes): 55
[2018-01-13] MEDS ORDERED: PRASUGREL (EFFIENT) 10 MG TAB ONE ×2 (12:02→12:11)
[2018-01-13] MEDS: LOSARTAN POTASSIUM 50 MG TABLET PO SCH (15:42)
[2018-01-13] MEDS: ENOXAPARIN 40 MG/0.4 ML SQ SCH (16:39)
--- NOTE | 2018-01-13 19:39 | OP ---
Surgeon: Benito Kunz MD Aging Room Hand: Tree Patton Identification: A 77-year-old man. Procedure: Left heart catheterization, coronary intervention, stent in the right coronary artery. Indication: Unstable angina. Procedure Findings: The patient has mild diffuse CAD. There is a 50% lesion in the very distal LAD. The others are less than 20%. So, the LAD and circumflex had no significant stenosis. The right c oronary had previous stents, at least 2, diffusely calcified, very ectatic irregular, but there was a dissected lesion in the mid RCA, 99% with a definite line, thrombus, evidence of friability, and ryan t was the target at the stenting and after stenting, it had 0% residual stenosis. Some side branches could not be protected and they were patent after the stent deployment. They were not occluded by t he stent. Excellent angiographic result. Procedure In Detail: The patient was brought to the cardiac quality lab assoc in a fasting state, sedated wit h Versed and fentanyl. Prepared and draped in usual sterile fashion. Right radial artery tissues ar ound the artery were anesthetized with lidocaine. Artery was entered using a 21-gauge needle. We th en used a 0.021 inch diameter guidewire to cannulate the artery, placed a 6-Citizen Of [place] sheath, flushed it , gave the radial cocktail containing nicardipine, heparin, nitroglycerin. We used a TIG catheter to angiogram left ventricle, left coronary. Right coronary angiograms were insufficient, so we exchang ed it for a Sha catheter, which was able to successfully cannulate the right coronary. After decis ion was made to do the stent, the Sha catheter was removed and exchange technique was used over a l maurice exchange wire and we used a guide catheter and a multipurpose A2 with side holes. We cannulated the artery easy and gave us good support. We gave Angiomax and demonstrated that the activated clott ing time was over 300. I gave the Effient 60 mg. We crossed the lesion with a [place] wire pre-dilat ed with a 3.0 x 15 balloon, believed that it was adequate size for the artery. We then withdrew the balloon, took pictures and deployed a stent, a 3.0 x 16 Synergy. We deployed at 16 atmospheres. The re was an excellent angiographic result. The patient had chest pain as soon as the stent was deploye d. It went away in about 10 minutes. There was patency of the artery all its side branches. Excell ent angiographic result and no arrhythmia or EKG changes, so we believe it was pain from the stent pr essing on the artery wall, not ischemia. After all catheters and wires were removed over a J wire, t he arteriotomy was closed. Sheath removed. A TR band was used. There were no complications from th e procedure. Estimated Blood Loss: 10 cc. CHRIS Voice ID: [id number] Report ID: [id number]
[2018-01-13] MEDS ORDERED: ATORVASTATIN 80 MG TAB PO SCH (21:00)
[2018-01-14 05:18] LABS: Absolute Lymphocytes (CBC) 1.4 K/uL (0.7-4.9); Absolute Monocytes 0.5 K/uL (0.1-1.3); Absolute Neutrophil 3.1 K/uL (1.8-8.0); Basophils % 0.9 % (0-1.3); Lymphocytes % 26.8 % (15.3-44.8); MCH 28.7 pg (27.0-35.0); MCV 85.4 fL (80-100); MPV 8.7 fL (7.6-11.3); RBC Red Blood Cell Count 4.33 M/uL (4.33-5.43)
[2018-01-14 05:37] LABS: ALT/SGPT 19 U/L (12-78); AST/SGOT 19 U/L (15-37); Albumin 3.3 g/dL (3.4-5.0); Alkaline Phosphatase 99 U/L (45-117); BUN Blood Urea Nitrogen 15 mg/dL (7-18); Bicarbonate 28 mmol/L (21-32); Bilirubin Total 0.7 mg/dL (0.2-1.0); Glucose Level 89 mg/dL (74-106); Phosphorus 2.9 mg/dL (2.5-4.9); Potassium 3.8 mmol/L (3.5-5.1); Protein, Total 6.1 g/dL (6.4-8.2); Sodium Level 142 mmol/L (136-145)
[2018-01-14] MEDS ORDERED: POTASSIUM CL SA 10 MEQ TAB PO ONE (05:44)
[2018-01-14] MEDS: METOPROLOL TAR 25 MG TAB PO SCH (06:18)
[2018-01-14] MEDS: PANTOPRAZOLE 40MG TABLET PO SCH (06:19)
[2018-01-14 08:03] VITALS: BP 133/66; TEMP 97.1
[2018-01-14] MEDS: HOME MED 1 EA UNK (Latanoprost/Pf [Latanoprost 0.005% Eye Drop] 1 DROP) EACH EYE SCH (09:00)
[2018-01-14] MEDS ORDERED: PRASUGREL (EFFIENT) 10 MG TAB PO SCH (09:00)
[2018-01-14] MEDS: ASPIRIN EC 81 MG TAB PO SCH (10:03)
[2018-01-14] MEDS: LOSARTAN POTASSIUM 50 MG TABLET PO SCH (10:03)
[2018-01-14] MEDS: GABAPENTIN 300 MG CAP PO SCH (10:05)
--- NOTE | 2018-01-14 10:06 | P.DS ---
Admission Date: 01/11/18 Discharge Date: 01/14/18 Primary Care Provider: Dr. Jackson; Cardiology-Dr. Craft([place], [place]) Disposition: ROUTINE DISCHARGE Discharge Condition: GOOD Reason for Admission: Chest pain Consultations: Cardiology-Dr. Kunz Procedures: Echocardiogram: Ejection fraction 69%. LEFT VENTRICULAR WALL MOTION: NORMAL DOPPLER/COLOR FLOW: MILD TRICUSPID REGURGITATION. COMMENTS: MILD TRICUSPID REGURGITATION. NORMAL RIGHT VENTRICULAR SYSTOLIC PRESSURE. NORMAL LEFT VENTRICULAR SIZE AND FUNCTION. AORTIC SCLEROSIS WITH NO STENOSIS. Heart catheterization: Surgeon: Benito Kunz MD Procedure: Left heart catheterization, coronary intervention, stent in the right coronary artery. Indication: Unstable angina. Procedure Findings: The patient has mild diffuse CAD. There is a 50% lesion in the very distal LAD. The others are less than 20%. So, the LAD and circumflex had no significant stenosis. The right coronary had previous stents , at least 2, diffusely calcified, very ectatic irregular, but there was a dissected lesion in the mid RCA, 99% with a definite line, thrombus, evidence of friability, and that was the target at the stenting and after stenting, it had 0% residual stenosis. Some side branches could not be protected and they were patent after the stent deployment. They were not occluded by the stent. Excellent angiographic result. - Problems (1) Chest pain Current Visit: Yes Status: Acute Qualifiers: Ischemic chest pain type: unstable angina pectoris (2) Unstable angina Onset Date: 01/12/18 Current Visit: Yes Status: Acute (3) Afib Onset Date: 01/12/18 Current Visit: Yes Status: Chronic Qualifiers: Atrial fibrillation type: paroxysmal Qualified Code(s): I48.0 - Paroxysmal atrial fibrillation (4) HTN (hypertension) Onset Date: 01/12/18 Current Visit: Yes Status: Chronic Qualifiers: Hypertension type: essential hypertension Qualified Code(s): I10 - Essential (primary) hypertension (5) Hyperlipidemia Current Visit: Yes Status: Chronic Qualifiers: Hyperlipidemia type: unspecified Qualified Code(s): E78.5 - Hyperlipidemia , unspecified (6) CAD (coronary artery disease) Current Visit: Yes Status: Acute Qualifiers: Associated angina: with unstable angina (7) GERD (gastroesophageal reflux disease) Current Visit: Yes Status: Chronic Qualifiers: Esophagitis presence: esophagitis presence not specified Qualified Code(s) : K21.9 - Gastro-esophageal reflux disease without esophagitis Brief History of Present Illness: 69-year-old male with history of CAD, hypertension, paroxysmal atrial fibrillation, hyperlipidemia. Patient presented with chest pain angina was identified. Patient was admitted for further evaluation and treatment. Hospital Course: During the course of his stay patient presented with unstable angina. Patient evaluated by Cardiology. Heart catheterization and echocardiogram was recommended. Echocardiogram shows ejection fraction 69%. Mild tricuspid regurgitation noted. Heart catheterization was done. A left heart catheterization with Coronary intervention was done. Stent to the right Coronary artery was placed with good result. Patient has mild diffuse CAD. 50 % lesion in the very distal LAD was noted. Other lesions less than 20% included the LAD and circumflex without significant stenosis. Stent was placed to the mid RCA. At discharge patient will continue with Effient 10 mg daily. Other medications have been adjusted. At discharge he will continue with losartan 100 mg daily, metoprolol 12.5 mg daily, and Lipitor 80 mg 1 pill daily. Recommendations for the patient follow up with cardiology in 1-2 weeks to follow up this hospitalization. Patient has hypertension. Medications have been adjusted. Patient will no longer take lisinopril/hydrochlorothiazide. New medications include losartan 100 mg daily and metoprolol 12.5 mg daily. Recommendation is to maintain blood pressures less 150/80. Further adjustment can be done by his PCP or cardiology. Patient has hyperlipidemia. New medications include Lipitor 80 mg daily. Further adjustment can be done by his PCP or cardiology. Patient has a history of paroxysmal atrial fibrillation. No chronic anti coagulation is recommended at this time. Patient will continue with above medications. Patient has GERD. Patient will continue with Zantac 150 mg 1 pill twice daily. Patient may continue with his medications of gabapentin 300 mg 3 times a day. Vital Signs/Physical Exam: Temp Pulse Resp BP Pulse Ox 97.1 F 55 12 133/66 97 01/14/18 08:00 01/14/18 08:00 01/14/18 08:00 01/14/18 08:00 01/14/18 08:00 General: Alert, In no apparent distress, Oriented x3, Cooperative HEENT: Atraumatic Neck: Supple Respiratory: Clear to auscultation bilaterally, Normal air movement Cardiovascular: Normal pulses, Regular rate/rhythm Gastrointestinal: Normal bowel sounds, Soft and benign, Non-distended, No tenderness, No masses, No rebound, No guarding Musculoskeletal: No erythema, No tenderness, No warmth Integumentary: No tenderness/swelling, No erythema, No warmth, No cyanosis Neurological: Normal speech, Normal strength at 5/5 x4 extr, Normal tone, Normal affect Laboratory Data at Discharge: WBC 5.4 K/uL (4.3-10.9) 01/14/18 04:22 Hgb 12.4 g/dL (13.6-17.9) L 01/14/18 04:22 Hct 37.0 % (39.6-49.0) L 01/14/18 04:22 Plt Count 184 K/uL (152-406) 01/14/18 04:22 PT 12.1 SECONDS (9.5-12.5) 01/11/18 15:35 INR 1.03 01/11/18 15:35 APTT 26.9 SECONDS (24.3-36.9) 01/11/18 15:35 Sodium 142 mmol/L (136-145) 01/14/18 04:22 Potassium 3.8 mmol/L (3.5-5.1) 01/14/18 04:22 BUN 15 mg/dL (7-18) 01/14/18 04:22 Creatinine 0.80 mg/dL (0.55-1.3) 01/14/18 04:22 Glucose 89 mg/dL (74-106) 01/14/18 04:22 Phosphorus 2.9 mg/dL (2.5-4.9) 01/14/18 04:22 Magnesium 2.0 mg/dL (1.8-2.4) 01/14/18 04:22 Total Bilirubin 0.7 mg/dL (0.2-1.0) 01/14/18 04:22 AST 19 U/L (15-37) 01/14/18 04:22 ALT 19 U/L (12-78) 01/14/18 04:22 Alkaline Phosphatase 99 U/L (45-117) 01/14/18 04:22 Troponin I < 0.02 ng/mL (0.0-0.045) 01/12/18 12:49 Triglycerides 95 mg/dL (<150) 01/12/18 04:34 Cholesterol 118 mg/dL (<200) 01/12/18 04:34 HDL Cholesterol 36 mg/dL (40-60) L 01/12/18 04:34 Cholesterol/HDL Ratio 3.28 01/12/18 04:34 Home Medications: Gabapentin [Neurontin*] 300 mg PO TID 01/11/18 Latanoprost/Pf [Latanoprost 0.005% Eye Drop] 1 drop EACH EYE DAILY 01/11/18 Ranitidine [Zantac*] 150 mg PO BID 01/11/18 Atorvastatin Calcium [Lipitor] 80 mg PO BEDTIME #30 tab 01/14/18 Latanoprost/Pf [Latanoprost 0.005% Eye Drop] 1 drop EACH EYE DAILY 01/14/18 Losartan Potassium 100 mg PO DAILY #30 tablet 01/14/18 Metoprolol Tartrate [Lopressor*] 12.5 mg PO [id number] #30 tab 01/14/18 Prasugrel Hydrochloride [Effient*] 10 mg PO DAILY #30 tab 01/14/18 New Medications: Atorvastatin Calcium [Lipitor] 80 mg PO BEDTIME #30 tab Losartan Potassium 100 mg PO DAILY #30 tablet Metoprolol Tartrate [Lopressor*] 12.5 mg PO [id number] #30 tab Prasugrel Hydrochloride [Effient*] 10 mg PO DAILY #30 tab Patient Discharge Instructions: 1. Patient will need to follow up his PCP in 1 week to follow up this hospitalization. 2. Patient presented with chest pain Patient found to have unstable angina with history of CAD. Patient evaluated by Cardiology. Heart catheterization was recommended. Patient found to have stenosis to the RCA. Stent placed to the RCA. At discharge patient will continue with Effient 10 mg daily. Medications have been adjusted. At discharge he will continue with losartan 100 mg daily, metoprolol 12.5 mg daily , and Lipitor 80 mg 1 pill daily. Recommendations for the patient follow up with cardiology in 1-2 weeks to follow up this hospitalization. 3. Patient has hypertension. Medications have been adjusted. Patient will no longer take lisinopril/hydrochlorothiazide. New medications include losartan 100 mg daily and metoprolol 12.5 mg daily. Recommendation is to maintain blood pressures less 150/80. Further adjustment can be done by his PCP or cardiology. 4. Patient has hyperlipidemia. New medications include Lipitor 80 mg daily. Further adjustment can be done by his PCP or cardiology. 5. Patient has a history of paroxysmal atrial fibrillation. No chronic anti coagulation is recommended at this time. Patient will continue with above medications. 6. Patient has GERD. Patient will continue with Zantac 150 mg 1 pill twice daily. 7. Patient may continue with his medications of gabapentin 300 mg 3 times a day. Diet: AHA Activity: Ad angela Followup: Benito Kunz MD [ACTIVE - CAN ADMIT] - Time spent managing pt's care (in minutes): 55
[2018-01-14 12:37] VITALS: O2SAT 97
--- NOTE | 2018-01-17 19:33 | PN ---
Date of Progress Note: 01/14/2018 Mr. Hastings had been admitted on 01/11/[address] We had to wait till 01/13/2018 to do the catheterization because he was on Xarelto. Dr. Kunz performed an RCA stent on him yester day. Today, he is asymptomatic. No telemetry changes. No cath site issues. He will be going home on his home medication plus Effient. I think we should probably hold the Xarelto for now, giving Eff ient and aspirin. He is in normal rhythm. We will see him in the office in 2 weeks. GARRET/ELLEN Voice ID: [id number] Report ID: [id number]
== END 2018-01-14 11:23 | disposition home or self-care (01) ==
LOC: ER 15:22 → ERHOLD 16:52 → 2ND 19:48
PROVIDERS: ADMIT Family Medicine; ATTEND Family Medicine
DX: I25.110 Atherosclerotic heart disease of native coronary artery with unstable angina pectoris (principal); I10 Essential (primary) hypertension; I48.0 Paroxysmal atrial fibrillation; Z95.5 Presence of coronary angioplasty implant and graft; Z85.46 Personal history of malignant neoplasm of prostate; Z88.0 Allergy status to penicillin
CPT/HCPCS: 36415 ×3; 71045; 80048; 80053 ×3; 80061; 80076; 81003; 82550; 82553; 83735 ×4; 83880; 84100 ×3; 84439; 84443; 84484 ×4; 85025 ×4; 85347; 85610; 85730; 93005; 93306; 93458; 94760 ×4; 96361; 96374; 99285; C1725; C1893; C9600; J0583; J1644; J1650 ×2; J2001; J2250; J3010 ×2; J7030; G0378

== ENCOUNTER 2018-11-10 15:01 | Emergency (ER) | payer OTHER ==
[2018-11-10] MEDS ORDERED: ASPIRIN 81 MG CHEWABLE TABLET ONE (15:34)
[2018-11-10 15:41] LABS: Absolute Lymphocytes (CBC) 1.3 K/uL (0.7-4.9); Absolute Monocytes 0.5 K/uL (0.1-1.3); Absolute Neutrophil 3.9 K/uL (1.8-8.0); Basophils % 0.9 % (0-1.3); Eosinophils % 1.6 % (0-4.4); Lymphocytes % 22.1 % (15.3-44.8); MPV 8.7 fL (7.6-11.3); Monocytes % 8.5 % (3.3-12.3); RBC Red Blood Cell Count 4.27 M/uL (4.33-5.43)
--- NOTE | 2018-11-10 15:49 | RAD REPORT ---
EXAM DESCRIPTION: RAD - Chest Single View - 11/10/2018 3:39 pm CLINICAL HISTORY: CHEST PAIN Chest pain. COMPARISON: No comparisonsChest Single View dated 01/11/2018; CHEST SINGLE VIEW dated 05/17/2013; [facility] SINGLE VIEW dated 10/27/2007; CHEST SINGLE VIEW dated 12/30/2006 FINDINGS: Portable technique limits examination quality. The lungs are grossly clear. The heart is normal in size. No displaced fractures. IMPRESSION: No acute intrathoracic process suspected.
[2018-11-10 15:58] LABS: BUN Blood Urea Nitrogen 15 mg/dL (7-18); Bicarbonate 28 mmol/L (21-32); Glucose Level 107 mg/dL (74-106); NT PRO-BNP 104 pg/mL (<450); Potassium 3.8 mmol/L (3.5-5.1); Sodium Level 142 mmol/L (136-145); Troponin (Emerg Dept Use Only) < 0.02 ng/mL (0.0-0.045)
--- OUTSIDE RECORDS SUMMARY | 2018-11-10 16:43 | XMS REPORT | Clinical Summary ---
:1940 Author Organization [facility] Address [address] [place] [address] Care Team Providers Name Role Phone Francisco Multani MD Primary Care Provider Allergies Active Allergy Reactions Severity Noted Date Comments Levofloxacin Other (See Comments) 04/15/2016 Tendon pain Penicillins Rash Low 12/27/2015 As a child Medications Medication Sig Dispensed Refills Start Date End Date Status aspirin (ECOTRIN) 81 MG Take 81 mg by 0 Active enteric coated tablet mouth. atorvastatin (LIPITOR) Take 20 mg by 0 Active 20 MG tablet mouth. cetirizine (ZyrTEC) 10 Take 10 mg by 0 Active MG tablet mouth. latanoprost (XALATAN) 1 drop. 0 Active 0.005 % ophthalmic solution lisinopril Take 10 mg by 0 Active (PRINIVIL,ZESTRIL) 10 mg mouth. tablet ranitidine (ZANTAC) 150 Take 150 mg by 0 Active MG tablet mouth. rivaroxaban (XARELTO) 20 Take by mouth. 0 Active mg tablet loratadine (CLARITIN) 10 Take 10 mg by 0 Active mg tablet mouth daily. Active Problems Not on file Social History Tobacco Use Types Packs/Day Years Used Date Never Smoker Sex Assigned at Date Recorded Not on file Job Start Date Occupation Industry Not on file Not on file Not on file Travel History Travel Start Travel End No recent travel history available. Last Filed Vital Signs Not on file Plan of Treatment Health Maintenance Due Date Last Done Comments SHINGLES VACCINES (#1) 1989 65+ PNEUMOCOCCAL VACCINE (1 of 2 - PCV13) 02/10/2004 PNEUMOCOCCAL POLYSACCHARIDE VACCINE AGE 65 AND OVER 02/10/2004 INFLUENZA VACCINE 01/20/2019 Results Not on fileafter 11/09/2017 Advance Directives Patient has advance care planning documents on file. For more information, please contact:Darwin Farley[address] [place] [address]
--- OUTSIDE RECORDS SUMMARY | 2018-11-10 16:44 | XMS REPORT | Clinical Summary ---
:1940 Author Organization [facility] Address [address] [place] [address] Care Team Providers Name Role Phone Francisco Multani Primary Care Provider Unavailable Allergies Active Allergy Reactions Severity Noted Date Comments Penicillins Rash Low 12/27/2015 As a child Medications Medication Sig Dispensed Refills Start Date End Date Status aspirin 81 MG EC tablet Take 81 mg by 0 Active mouth daily. atorvastatin (LIPITOR) Take 20 mg by 0 Active 20 MG tablet mouth daily. latanoprost (XALATAN) 1 drop nightly. 0 Active 0.005 % ophthalmic solution lisinopril Take 10 mg by 0 Active (PRINIVIL,ZESTRIL) 10 MG mouth daily. tablet ranitidine (ZANTAC) 150 Take 150 mg by 0 Active MG tablet mouth 2 (two) times daily. rivaroxaban (XARELTO) 20 Take by mouth 0 Active mg Tab tablet daily. cetirizine (ZYRTEC) 10 Take 10 mg by 0 Active MG tablet mouth daily. Active Problems Not on [...] Not on file Implants Implanted Type Area Jordan Worker Device Shelf Model / Identifier Expiration Date Serial / Lot Sclera Left: Eye [employer] 11/15/2016 / Implanted: Qty: 1 on 12/28/2015 by Xiomara Cook MD [id number] / [id number] Results Not on fileafter 11/09/2017 Insurance Payer Benefit Plan / Subscriber ID Type Phone Address Group [employer] - MEDICARE [employer] MEDICARE HMO xxxxxxxx [phone] [address] [place] [address]
--- OUTSIDE RECORDS SUMMARY | 2018-11-10 16:45 | XMS REPORT | Continuity of Care Document ---
[...] FOOT Inactive Condition 10/30/2014 Medical 014 Group [facility] MEDICATION Active Condition 10/30/2014 Medical USE NEC [...] Condition 10/30/2014 Medical ATHEROSCLEROSIS OF 960 Group [place] CORONARY ARTERY HYPERTENSIVE HEART Active Condition 10/30/2014 Medical DISEASE, BENIGN, 960 Group WITHOUT HEART FAILURE GERD Active Condition 02/18/2013 [facility] GREATER TROCHANTERIC Active Condition 02/18/2013 [facility] BURSITIS, LEFT [facility] GREATER TROCHANTERIC Active Condition 02/18/2013 [facility] BURSITIS, RIGHT [facility] HIP PAIN, BILATERAL Active Condition 02/18/2013 [facility] LATERAL MENISCUS TEAR, Active Condition 02/18/2013 [facility] NECK PAIN Active Condition 02/18/2013 [facility] BACK PAIN, LUMBAR Active Condition 02/18/2013 [facility] OSTEOARTHRITIS, HIPS, Active Condition 02/18/2013 [facility] BILATERAL [facility] KNEE PAIN, LEFT Active Condition 02/18/2013 [facility] MUSCLE STRAIN, RIGHT Active Condition 02/18/2013 [facility] KNEE PAIN, RIGHT Active Condition 02/18/2013 [facility] OSTEOARTHRITIS, KNEE, Active Condition 02/18/2013 [facility] LUMBAR RADICULOPATHY, Active Condition 02/18/2013 [facility] CAD Inactive Condition 10/30/2014 Medical Group HYPERCHOLESTEROLEMIA Active Condition 10/30/2014 [facility], [facility] ESSENTIAL HYPERTENSION [...] 2013 Medical Group METOPROLOL SUCCINATE TAKES ONE No Longer ER 25 MG [id number] TAB DAILY PO Active 2013 Medical Group LORADAMED 10 MG TABS ONE TAB No Longer DAILY PO FOR Active 2013 Medical ALLERGYS Group METOPROLOL SUCCINATE TAKES ONE Active ER 25 MG [id number] TAB DAILY PO 2014 Medical Group SOTALOL HCL 80 MG ONE PO BID No Longer TABS Active 2013 Medical Group XARELTO 20 MG TABS one daily Active 2013 Medical Group POTASSIUM CHLORIDE 20 1 tablespoon [...] ATORVASTATIN CALCIUM per other Active 03/17/ [facility] SAHUS M.[place] 2012 [facility] CALCIUM TABS [...] MG per other Active 03/17/ Michael CAPS [place] 2012 [facility] ATORVASTATIN CALCIUM per other Active 03/17/ Michael TABS M.D. 2012 [facility] CALCIUM TABS per other Active 03/17/ Michael Pina 2012 [facility] ASPIRIN EC LOW DOSE per other Active 03/17/ Michael 81 MG TBEC M.D. 2012 [facility] UNKNOWN ALLERGY OTC Active 03/17/ [facility] MEDICATION 2012 [facility] RANITIDINE [...] Comments Source type Reported PENICILLIN Drug PENICILLIN [facility] allergy 2 [facility] SEASONAL Environment SEASONAL [facility] ALLERGIES al allergy ALLERGIES 2 [facility] CIPRO Drug CIPRO allergy 3 Medical Group FLUOROQUINOL Drug FLUOROQUINO [place] ONES allergy LONES Bone & [facility] ZETIA [...] Vax) has been administered heptavalent 02/18/2013 completed [place] pneumococcal [facility] conjugate vaccine (7-valent) #1 heptavalent 02/18/2013 completed [facility] pneumococcal [facility] conjugate vaccine (7-valent) #2 heptavalent 11/22/2012 completed [facility] pneumococcal [facility] conjugate vaccine (7-valent) #1 heptavalent 11/22/2012 completed [facility] pneumococcal [facility] conjugate vaccine (7-valent) #2 heptavalent 11/01/2012 completed [facility] pneumococcal [facility] conjugate vaccine (7-valent) #1 heptavalent 11/01/2012 completed [facility] pneumococcal [facility] conjugate vaccine (7-valent) #2 influenza 03/31/2012 completed Medical immunization (Flu Group Vax) has been administered Results Order Name Results Value Reference Date Interpretation Comments Source Range Chemistry SODIUM 138 135 - 143 09/25/ mmol/L 2014 Medical Group Chemistry POTASSIUM 3.9 3.3 - 5.0 mmol/L 2014 [facility] Group Chemistry ALBUMIN 3.9 3.5 - 5.0 g/dL 2014 Medical Group Chemistry CALCIUM 9.3 [...] Group Chemistry SODIUM 140 135 - 143 mmol/L 2013 Medical Group Chemistry POTASSIUM 4.0 3.3 - 5.0 03/23/ [facility] mmol/L 2013 Medical Group Chemistry ALBUMIN 3.7 3.5 - 5.0 03/23/ MH g/dL 2013 Medical Group Chemistry CALCIUM 9.5 8.6 - 9.8 03/23/ MH mg/dL 2013 Medical Group Chemistry CREATININE 0.82 0.46 - 1.20 mg/dL 2013 Medical Group Chemistry BUN 14 10 - 22 mg/dL 2013 Medical Group Chemistry ALK PHOS 65 U/L 32 - 96 2013 Medical Group Chemistry SGOT (AST) 23 U/L 10 - 2013 Medical Group Chemistry SGPT (ALT) 15 U/L 11 - 2013 Medical Group Chemistry CHOLESTEROL 139 120 [...] 50.5 2013 Medical Group Chemistry TRIGLYCERIDE 104 09/22/ mg/dl 2013 Medical Group Chemistry LDL 93 mg/dl 2013 Medical Group Chemistry TRIGLYCERIDE 104 09/22/ mg/dl 2013 Medical Group Chemistry LDL 93 mg/dl 2013 Medical Group Chemistry SODIUM 139 135 - 143 09/22/ mmol/L 2013 Medical Group Chemistry POTASSIUM 3.7 3.3 - 5.0 09/22/ mmol/L 2013 Medical Group Chemistry SODIUM 139 135 - 143 // mmol/L 2013 Medical Group Chemistry POTASSIUM 3.7 3.3 - 5.0 09/22/ mmol/L 2013 Medical Group Chemistry ALBUMIN 4.0 3.5 - 5.0 09/22/ g/dL 2013 Medical Group Chemistry CALCIUM 9.5 8.6 - 9.8 mg/dL 2013 Medical Group Chemistry CREATININE 0.86 0.46 - 1.20 mg/dL 2013 Medical Group Chemistry BUN 18 10 - 22 mg/dL 2013 Medical Group Chemistry ALK PHOS 85 U/L 32 - 96 2013 Medical Group Chemistry SGOT (AST) 21 U/L 10 - 2013 Medical Group Chemistry SGPT (ALT) 15 [...] 06/07/2014 Medical Group Heart Rate 72 06/07/2014 [facility] Respitory Rate 12 06/07/2014 Medical [...] 06/27/2013 Medical Group Respitory Rate 18 06/27/2013 [facility] Systolic (mm Hg) 126 06/27/2013 Medical Group Diastolic (mm Hg) 70 06/27/2013 Medical Group Heart Rate 60 06/27/2013 Medical Group Weight 194 05/30/2013 Medical Group Systolic (mm Hg) 130 05/30/2013 [facility] Diastolic (mm Hg) 80 05/30/2013 Medical Group Heart Rate 52 05/30/2013 Medical Group Weight 194 03/31/2013 Medical Group Heart Rate 64 03/31/2013 Medical Group Systolic (mm Hg) 120 03/31/2013 [...] 80 07/12/2012 Medical Group Height 72 03/18/2012 [facility] Weight 200 03/18/2012 [facility] [...] Location Location Encounter Encounter Reason Attending ADM DC Status Source Details Type Number For Provider Date Date Visit [place] [facility] [id number] [place] 03/18 03/18 [place] Office Visit 6450 Darya DOE /2011 [facility] [place] [facility] [id number] Wayne 05/04 05/04 [place] Office Visit 7580 Darya DOE /2011 [facility] [place] [facility] [id number] Wayne 11/01 11/01 [place] Office Visit 6640 Darya DOE [facility] [place] [facility] [id number] Wayne 11/22 11/22 [place] Office Visit 7230 Darya DOE /2012 [facility] [place] [facility] [id number] Wayne 02/18 02/18 [place] Office Visit 6660 Darya DOE [facility] Office [id number] Francisco 02/13 02/13 [facility] Medical Visit 8360 Nerissa, Medical Abran Castro MD Group Internal Med [facility] Lab Report [id number] Francisco 02/15 02/15 Jon[place] 1410 Nerissa, Medical Medical Group Group - [place] [facility] Office [id number] Art 03/06 03/06 [place] Medical Visit 2110 Hugodul[place]ouglas, /2013 Medical Kimmie DOE [facility] Family Practice [facility] Lab Report [id number] Art 03/23 03/23 [place] Medical 0560 Hugodul[place]las, /2013 Medical Abran Castro MD Group Internal Med [facility] Office [id number] Art 03/31 03/31 [place] Medical Visit 4290 Dominic, /2013 Medical Abran Castro MD Group Internal Med [facility] Office [id number] Art 06/07 06/07 [place] Medical Visit 7080 Dominic, /2013 Medical Andrew DOE [facility] Cardiology [facility] Lab Report [id number] Art 09/25 09/25 [place] Medical 9310 Hugodulcetter, /2014 Medical Abran Castro MD [facility] Internal Med [facility] Office [id number] Francisco 10/02 10/02 [place] Medical Visit 5670 Nerissa, /2014 Medical Abran Castro MD [facility] Internal Med [facility] Office [id number] Laure 10/30 10/30 [place] Medical Visit 7470 WARNER Trinh /2014 Medical Kimmie NBA PLAYER-C [facility] Family Practice Procedures Procedure Code Date Perfomer Comments Source smoking/tobacco 14 10/02/2014 yes Medical cessation, patient Group education and counseling smoking/tobacco 14 06/07/2014 yes Medical cessation, patient Group education and counseling smoking/tobacco 14 03/31/2014 yes Medical cessation, patient Group education and counseling smoking/tobacco 14 03/06/2014 yes Medical cessation, patient Group education and counseling genitourinary review [id number] 05/04/2012 denies loss of [facility], E&M urine,frequent & Joint urination,nigh t time urination,pain ful urination,bloo d in urine, or kidney stones genitourinary review [id number] 03/18/2012 denies loss of [facility], E&M urine,frequent & Joint urination,nigh t time urination,pain ful urination,bloo d in urine, or kidney stones genitourinary review [id number] 03/17/2012 denies loss of [facility], E&M urine,frequent & Joint urination,nigh t time urination,pain ful urination,bloo d in urine, or kidney stones
--- OUTSIDE RECORDS SUMMARY | 2018-11-10 16:45 | XMS REPORT | Continuity of Care Document ---
:1939 Author Organization [facility] Care Team Providers Name Role Phone Wayne Lackey MD Unavailable Unavailable Encounters Encounter Performer Location Date Office Visit Wayne Lackey MD [place] Office Mar 18, 2012 Allergies, Adverse Reactions, [...]
--- OUTSIDE RECORDS SUMMARY | 2018-11-10 16:46 | XMS REPORT | Continuity of Care Document ---
:1939 Author Organization [facility] Care Team Providers Name Role Phone Wayne Lackey MD Unavailable Insurance Providers Payer name Policy type / Coverage type Policy ID Covered libertarian ID Policy Lopez Aetna Medicare Encounters Encounter Performer Location Date Office Visit Wayne Lackey MD [facility] Office Nov 22, 2012 Allergies, Adverse Reactions, [...]
--- OUTSIDE RECORDS SUMMARY | 2018-11-10 16:46 | XMS REPORT | Continuity of Care Document ---
:1939 Author Organization [facility] Care Team Providers Name Role Phone Wayne Lackey MD Unavailable Insurance Providers Payer name Policy type / Coverage type Policy ID Covered libertarian ID Policy Lopez Aetna Medicare Encounters Encounter Performer Location Date Office Visit Wayne Lackey MD [place] Office November 01, 2012 Allergies, Adverse Reactions, [...]
--- OUTSIDE RECORDS SUMMARY | 2018-11-10 16:46 | XMS REPORT | Continuity of Care Document ---
:1939 Author Organization [facility] Care Team Providers Name Role Phone [...] Location Date Lab Report Francisco Multani MD [facility] - Feb 15, 2014 [place] Allergies, Adverse Reactions, Alerts Type Substance Reaction [...] TAB DAILY PO Sep 29, 2013 Active [id number] LORADAMED 10 MG TABS ONE TAB DAILY [...] Mar 31, sodium, serum SODIUM 139 mmol/L [phone] Mar 31, potassium, serum POTASSIUM 3.7 mmol/L [...] Mar 31, cholesterol, serum CHOLESTEROL 154 mg/dl [phone] Mar 31, HDL cholesterol, HDL 40 mg/dl 26-62 2012 serum Sep 22, sodium, serum SODIUM 139 mmol/L [phone] Sep 22, potassium, serum POTASSIUM 3.7 mmol/L [...] Sep 22, cholesterol, serum CHOLESTEROL 154 mg/dl [phone] Sep 22, HDL cholesterol, HDL 40 mg/dl 26-62 2013 serum
--- OUTSIDE RECORDS SUMMARY | 2018-11-10 16:46 | XMS REPORT | Continuity of Care Document ---
:1939 Author Organization [facility] Care Team Providers Name Role Phone Wayne Lackey MD Unavailable Insurance Providers Payer name Policy type / Coverage type Policy ID Covered alliance party ID Policy Lopez Aetna Medicare Encounters Encounter Performer Location Date Office Visit Wayne Lackey MD [place] Office Feb 18, 2013 Allergies, Adverse Reactions, [...]
--- OUTSIDE RECORDS SUMMARY | 2018-11-10 16:46 | XMS REPORT | Continuity of Care Document ---
:1939 Author Organization [facility] Care Team Providers Name Role Phone Wayne Lackey MD Unavailable Unavailable Encounters Encounter Performer Location Date Office Visit Wayne Lackey MD [place] Office May 04, 2012 Allergies, Adverse Reactions, [...]
--- OUTSIDE RECORDS SUMMARY | 2018-11-10 16:47 | XMS REPORT | Continuity of Care Document ---
:1939 Author Organization [facility] Care Team Providers Name Role Phone [...] Location Date Office Visit Liam Alfaro MD [facility] Feb Practice Allergies, Adverse Reactions, Alerts Type Substance Reaction Status Drug allergy ZETIA achy Active Drug allergy CRESTOR achy Active Drug allergy CIPRO Inactive Drug allergy PCN rash as a child Active Drug allergy CIPRO Inactive Problems Problem Effective Dates Problem Status CAD Inactive HYPERCHOLESTEROLEMIA Active ESSENTIAL HYPERTENSION Active CARCINOMA, PROSTATE Mar 11, 2012 Active CORONARY ATHEROSCLEROSIS OF [place] CORONARY ARTERY Jun 22, 1959 Active HYPERTENSIVE HEART DISEASE, BENIGN, 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, 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 FAILURE ABDOMINAL PAIN, GENERALIZED Aug 13, 2012 Inactive ATRIAL FIBRILLATION May 17, 2013 Active DERMATITIS, CONTACT, NOS Feb 13, 2014 Inactive WOUND, FOOT Mar 06, 2014 Active 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 Mar 06, 2014 Active [...] TAB DAILY PO Sep 29, 2013 Inactive [id number] LORADAMED 10 MG TABS ONE TAB DAILY [...] Mar 31, sodium, serum SODIUM 139 mmol/L [phone] Mar 31, potassium, serum POTASSIUM 3.7 mmol/L [...] Mar 31, cholesterol, serum CHOLESTEROL 154 mg/dl [phone] Mar 31, HDL cholesterol, HDL 40 mg/dl 26-62 2012 serum Sep 22, sodium, serum SODIUM 139 mmol/L [phone] Sep 22, potassium, serum POTASSIUM 3.7 mmol/L [...] Sep 22, cholesterol, serum CHOLESTEROL 154 mg/dl [phone] Sep 22, HDL cholesterol, HDL 40 mg/dl -62 2013 serum Sep 22, triglyceride, serum, TRIGLYCERIDE 104 mg/dl 2013 fasting Sep 22, LDL cholesterol, LDL 93 mg/dl 2013 serum
--- OUTSIDE RECORDS SUMMARY | 2018-11-10 16:47 | XMS REPORT | Continuity of Care Document ---
:1939 Author Organization [facility] Care Team Providers Name Role Phone MD [...] Location Date Lab Report Art MD Dominic [facility] Medical [place] [facility] Med Mar 23, 2014 Allergies, Adverse Reactions, Alerts Type Substance Reaction Status Drug allergy ZETIA achy Active Drug allergy CRESTOR achy Active Drug allergy CIPRO Inactive Drug allergy PCN rash as a child Active Drug allergy CIPRO Inactive Problems Problem Effective Dates Problem Status CAD Inactive HYPERCHOLESTEROLEMIA Active ESSENTIAL HYPERTENSION Active CARCINOMA, PROSTATE Mar 11, 2012 Active CORONARY ATHEROSCLEROSIS OF [place] CORONARY ARTERY Jun 22, 1959 Active HYPERTENSIVE HEART DISEASE, BENIGN, 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, 1959 Active FAILURE ABDOMINAL PAIN, GENERALIZED Aug 13, 2012 Inactive ATRIAL FIBRILLATION May 17, 2013 Active DERMATITIS, CONTACT, NOS Feb 13, 2014 Inactive WOUND, FOOT Mar 06, 2014 Active CORRECTION MEDICATION USE NEC Mar 06, 2014 Active [...] TAB DAILY PO Sep 29, 2013 Inactive [id number] LORADAMED 10 MG TABS ONE TAB DAILY [...] Mar 31, sodium, serum SODIUM 139 mmol/L [phone] Mar 31, potassium, serum POTASSIUM 3.7 mmol/L [...] Mar 31, cholesterol, serum CHOLESTEROL 154 mg/dl [phone] Mar 31, HDL cholesterol, HDL 40 mg/dl 26-62 2012 serum Sep 22, sodium, serum SODIUM 139 mmol/L [phone] Sep 22, potassium, serum POTASSIUM 3.7 mmol/L [...] Sep 22, cholesterol, serum CHOLESTEROL 154 mg/dl [phone] Sep 22, HDL cholesterol, HDL 40 mg/dl -62 2013 serum Sep 22, triglyceride, serum, TRIGLYCERIDE 104 mg/dl 2013 fasting Sep 22, LDL cholesterol, LDL 93 mg/dl 2013 serum
--- OUTSIDE RECORDS SUMMARY | 2018-11-10 16:47 | XMS REPORT | Continuity of Care Document ---
:1939 Author Organization [facility] Care Team Providers Name Role Phone MD [...] Location Date Office Visit Francisco Multani MD [facility] Medical [place] Internal Feb 13, 2014 Med Allergies, Adverse [...] TAB DAILY PO Sep 29, 2013 Active [id number] LORADAMED 10 MG TABS ONE TAB DAILY [...] Mar 31, sodium, serum SODIUM 139 mmol/L [phone] Mar 31, potassium, serum POTASSIUM 3.7 mmol/L [...] Mar 31, cholesterol, serum CHOLESTEROL 154 mg/dl [phone] Mar 31, HDL cholesterol, HDL 40 mg/dl 26-62 2012 serum Sep 22, sodium, serum SODIUM 139 mmol/L [phone] Sep 22, potassium, serum POTASSIUM 3.7 mmol/L [...] Sep 22, cholesterol, serum CHOLESTEROL 154 mg/dl [phone] Sep 22, HDL cholesterol, HDL 40 mg/dl -2013 serum
--- OUTSIDE RECORDS SUMMARY | 2018-11-10 16:48 | XMS REPORT | Continuity of Care Document ---
:1939 Author Organization [facility] Care Team Providers Name Role Phone MD [...] Location Date Lab Report Art MD Dominic [facility] Medical [place] Internal Med Mar 23, 2014 Allergies, Adverse Reactions, Alerts Type Substance Reaction Status Drug allergy ZETIA achy Active Drug allergy CRESTOR achy Active Drug allergy CIPRO Inactive Drug allergy PCN rash as a child Active Drug allergy CIPRO Inactive Problems Problem Effective Dates Problem Status CAD Inactive HYPERCHOLESTEROLEMIA Active ESSENTIAL HYPERTENSION Active CARCINOMA, PROSTATE Mar 11, 2012 Active CORONARY ATHEROSCLEROSIS OF [place] CORONARY ARTERY Jun 22, 1959 Active HYPERTENSIVE HEART DISEASE, BENIGN, 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, 1959 Active FAILURE ABDOMINAL PAIN, GENERALIZED Aug 13, 2012 Inactive ATRIAL FIBRILLATION May 17, 2013 Active DERMATITIS, CONTACT, NOS Feb 13, 2014 Inactive WOUND, FOOT Mar 06, 2014 Active 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 Mar 06, 2014 Active [...] TAB DAILY PO Sep 29, 2013 Inactive [id number] LORADAMED 10 MG TABS ONE TAB DAILY [...] Mar 31, sodium, serum SODIUM 139 mmol/L [phone] Mar 31, potassium, serum POTASSIUM 3.7 mmol/L [...] Mar 31, cholesterol, serum CHOLESTEROL 154 mg/dl [phone] Mar 31, HDL cholesterol, HDL 40 mg/dl 26-62 2012 serum Sep 22, sodium, serum SODIUM 139 mmol/L [phone] Sep 22, potassium, serum POTASSIUM 3.7 mmol/L [...] Sep 22, cholesterol, serum CHOLESTEROL 154 mg/dl [phone] Sep 22, HDL cholesterol, HDL 40 mg/dl 2013 serum Sep 22, triglyceride, serum, TRIGLYCERIDE 104 mg/dl 2013 fasting Sep 22, LDL cholesterol, LDL 93 mg/dl 2013 serum Mar 23, sodium, serum SODIUM 140 mmol/L [phone] Mar 23, potassium, serum POTASSIUM 4.0 mmol/L [...] Mar 23, cholesterol, serum CHOLESTEROL 139 mg/dl [phone] Mar 23, HDL cholesterol, HDL 47 mg/dl 2013 serum Mar 23, LDL cholesterol, LDL 79 mg/dl 0-130 2013 serum Mar 23, thyroid stimulating TSH 2.23 0.34-5.60 2013 hormone, serum uIU/mL
--- OUTSIDE RECORDS SUMMARY | 2018-11-10 16:48 | XMS REPORT | Continuity of Care Document ---
:1939 Author Organization [facility] Care Team Providers Name Role [...] Location Date Office Visit Liam Alfaro MD [facility] Medical [place] Internal Mar 31, 2014 Med Allergies, Adverse Reactions, Alerts Type Substance Reaction Status Drug allergy ZETIA achy Active Drug allergy CRESTOR achy Active Drug allergy CIPRO Inactive Drug allergy PCN rash as a child Active Drug allergy CIPRO Inactive Problems Problem Effective Dates Problem Status CAD Inactive HYPERCHOLESTEROLEMIA Active ESSENTIAL HYPERTENSION Active CARCINOMA, PROSTATE Mar 11, 2012 Active CORONARY ATHEROSCLEROSIS OF [place] CORONARY ARTERY Jun 22, 1959 Active HYPERTENSIVE HEART DISEASE, BENIGN, 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, 1959 Active FAILURE ABDOMINAL PAIN, GENERALIZED Aug 13, 2012 Inactive ATRIAL FIBRILLATION May 17, 2013 Active DERMATITIS, CONTACT, NOS Feb 13, 2014 Inactive WOUND, FOOT Mar 06, 2014 Active SNF MEDICATION USE NEC Mar 06, 2014 [...] TAB DAILY PO Sep 29, 2013 Inactive [id number] LORADAMED 10 MG TABS ONE TAB DAILY [...] Mar 31, sodium, serum SODIUM 139 mmol/L [phone] Mar 31, potassium, serum POTASSIUM 3.7 mmol/L [...] Mar 31, cholesterol, serum CHOLESTEROL 154 mg/dl [phone] Mar 31, HDL cholesterol, HDL 40 mg/dl -2012 serum Sep 22, sodium, serum SODIUM 139 mmol/L [phone] Sep 22, potassium, serum POTASSIUM 3.7 mmol/L [...] Sep 22, cholesterol, serum CHOLESTEROL 154 mg/dl [phone] Sep 22, HDL cholesterol, HDL 40 mg/dl -2013 serum Sep 22, triglyceride, serum, TRIGLYCERIDE 104 mg/dl 2014 fasting Sep 22, LDL cholesterol, LDL 93 mg/dl 2013 serum Mar 23, sodium, serum SODIUM 140 mmol/L [phone] Mar 23, potassium, serum POTASSIUM 4.0 mmol/L [...] Mar 23, cholesterol, serum CHOLESTEROL 139 mg/dl [phone] Mar 23, HDL cholesterol, HDL 47 mg/dl 26-62 2013 serum Mar 23, LDL cholesterol, LDL 79 mg/dl 0-130 2013 serum Mar 23, thyroid stimulating TSH 2.23 0.34-5.60 2014 hormone, serum uIU/mL
--- OUTSIDE RECORDS SUMMARY | 2018-11-10 16:49 | XMS REPORT | Continuity of Care Document ---
:1939 Author Organization [facility] Care Team Providers Name Role Phone MD Nerissa, Francisco Cowan Unavailable Insurance Providers Payer name Policy type / Policy ID Covered democrat ID Policy Lopez Coverage type AETNA SECONDARY [...] Location Date Office Visit Francisco Multani MD [facility] [place] Internal Oct 02, 2014 Med Allergies, Adverse Reactions, Alerts Type Substance Reaction Status Drug allergy ZETIA achy Active Drug allergy CRESTOR achy Active Drug allergy CIPRO Inactive Drug allergy PCN rash as a child Active Drug allergy CIPRO Inactive Problems Problem Effective Dates Problem Status CAD Inactive HYPERCHOLESTEROLEMIA Active ESSENTIAL HYPERTENSION Active CARCINOMA, PROSTATE Mar 11, 2012 Active CORONARY ATHEROSCLEROSIS OF [place] CORONARY ARTERY Jun 22, 1959 Active HYPERTENSIVE HEART DISEASE, BENIGN, 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, 1959 Active FAILURE ABDOMINAL PAIN, GENERALIZED Aug 13, 2012 Inactive ATRIAL FIBRILLATION May 17, 2013 Active DERMATITIS, CONTACT, NOS Feb 13, 2014 Inactive WOUND, FOOT Mar 06, 2014 Inactive 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 Mar 06, 2014 Active [...] TAB DAILY PO Sep 29, 2013 Inactive [id number] LORADAMED 10 MG TABS ONE TAB DAILY [...] Mar 31, sodium, serum SODIUM 139 mmol/L [phone] Mar 31, potassium, serum POTASSIUM 3.7 mmol/L [...] Mar 31, cholesterol, serum CHOLESTEROL 154 mg/dl [phone] Mar 31, HDL cholesterol, HDL 40 mg/dl 2012 serum Sep 22, sodium, serum SODIUM 139 mmol/L [phone] Sep 22, potassium, serum POTASSIUM 3.7 mmol/L [...] Sep 22, cholesterol, serum CHOLESTEROL 154 mg/dl [phone] Sep 22, HDL cholesterol, HDL 40 mg/dl 2013 serum Sep 22, triglyceride, serum, TRIGLYCERIDE 104 mg/dl 2013 fasting Sep 22, LDL cholesterol, LDL 93 mg/dl 2013 serum Mar 23, sodium, serum SODIUM 140 mmol/L [phone] Mar 23, potassium, serum POTASSIUM 4.0 mmol/L [...] Mar 23, cholesterol, serum CHOLESTEROL 139 mg/dl [phone] Mar 23, HDL cholesterol, HDL 47 mg/dl 2013 serum Mar 23, LDL cholesterol, LDL 79 mg/dl 0-130 2013 serum Mar 23, thyroid stimulating TSH 2.23 0.34-5.60 2013 hormone, serum uIU/mL Sep 25, sodium, serum SODIUM 138 mmol/L [phone] Sep 25, potassium, serum POTASSIUM 3.9 mmol/L [...] Sep 25, cholesterol, serum CHOLESTEROL 140 mg/dl [phone] Sep 25, HDL cholesterol, HDL 42 mg/dl 2014 serum Sep 25, LDL cholesterol, LDL 74 mg/dl 0-130 2015 serum
--- OUTSIDE RECORDS SUMMARY | 2018-11-10 16:49 | XMS REPORT | Continuity of Care Document ---
:1940 Author Organization [facility] Care Team Providers Name Role Phone MD [...] Location Date Office Visit Liam Alfaro MD [facility] [place] [facility] Jun 07, 2014 Allergies, Adverse Reactions, Alerts Type Substance Reaction Status Drug allergy ZETIA achy Active Drug allergy CRESTOR achy Active Drug allergy CIPRO Inactive Drug allergy PCN rash as a child Active Drug allergy CIPRO Inactive Problems Problem Effective Dates Problem Status CAD Inactive HYPERCHOLESTEROLEMIA Active ESSENTIAL HYPERTENSION Active CARCINOMA, PROSTATE Mar 11, 2012 Active CORONARY ATHEROSCLEROSIS OF [place] CORONARY ARTERY Jun 22, 1959 Active HYPERTENSIVE HEART DISEASE, BENIGN, 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, 1959 Active FAILURE ABDOMINAL PAIN, GENERALIZED Aug 13, 2012 Inactive ATRIAL FIBRILLATION May 17, 2013 Active DERMATITIS, CONTACT, NOS Feb 13, 2014 Inactive WOUND, FOOT Mar 06, 2014 Inactive 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 Mar 06, 2014 Active [...] TAB DAILY PO Sep 29, 2013 Inactive [id number] LORADAMED 10 MG TABS ONE TAB DAILY [...] Mar 31, sodium, serum SODIUM 139 mmol/L [phone] Mar 31, potassium, serum POTASSIUM 3.7 mmol/L [...] Mar 31, cholesterol, serum CHOLESTEROL 154 mg/dl [phone] Mar 31, HDL cholesterol, HDL 40 mg/dl 26-62 2012 serum Sep 22, sodium, serum SODIUM 139 mmol/L [phone] Sep 22, potassium, serum POTASSIUM 3.7 mmol/L [...] Sep 22, cholesterol, serum CHOLESTEROL 154 mg/dl [phone] Sep 22, HDL cholesterol, HDL 40 mg/dl 2013 serum Sep 22, triglyceride, serum, TRIGLYCERIDE 104 mg/dl 2013 fasting Sep 22, LDL cholesterol, LDL 93 mg/dl 2013 serum Mar 23, sodium, serum SODIUM 140 mmol/L [phone] Mar 23, potassium, serum POTASSIUM 4.0 mmol/L [...] Mar 23, cholesterol, serum CHOLESTEROL 139 mg/dl [phone] Mar 23, HDL cholesterol, HDL 47 mg/dl 2013Mar 23, LDL cholesterol, LDL 79 mg/dl 0-130 2013Mar 23, thyroid stimulating TSH 2.23 0.34-5.60 2013 hormone, serum uIU/mL
--- OUTSIDE RECORDS SUMMARY | 2018-11-10 16:50 | XMS REPORT | Continuity of Care Document ---
:1940 Author Organization [facility] Care Team Providers Name Role Phone MD [...] Location Date Lab Report Liam Alfaro MD [facility] Sep 25, 2014 Allergies, Adverse Reactions, Alerts Type Substance Reaction Status Drug allergy ZETIA achy Active Drug allergy CRESTOR achy Active Drug allergy CIPRO Inactive Drug allergy PCN rash as a child Active Drug allergy CIPRO Inactive Problems Problem Effective Dates Problem Status CAD Inactive HYPERCHOLESTEROLEMIA Active ESSENTIAL HYPERTENSION Active CARCINOMA, PROSTATE Mar 11, 2012 Active CORONARY ATHEROSCLEROSIS OF [place] CORONARY ARTERY Jun 22, 1959 Active HYPERTENSIVE HEART DISEASE, BENIGN, 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, 1959 Active FAILURE ABDOMINAL PAIN, GENERALIZED Aug 13, 2012 Inactive ATRIAL FIBRILLATION May 17, 2013 Active DERMATITIS, CONTACT, NOS Feb 13, 2014 Inactive WOUND, FOOT Mar 06, 2014 Inactive MCFP MEDICATION USE NEC Mar 06, 2014 Active [...] TAB DAILY PO Sep 29, 2013 Inactive [id number] LORADAMED 10 MG TABS ONE TAB DAILY [...] Mar 31, sodium, serum SODIUM 139 mmol/L [phone] Mar 31, potassium, serum POTASSIUM 3.7 mmol/L [...] Mar 31, cholesterol, serum CHOLESTEROL 154 mg/dl [phone] Mar 31, HDL cholesterol, HDL 40 mg/dl 2012 serum Sep 22, sodium, serum SODIUM 139 mmol/L [phone] Sep 22, potassium, serum POTASSIUM 3.7 mmol/L [...] Sep 22, cholesterol, serum CHOLESTEROL 154 mg/dl [phone] Sep 22, HDL cholesterol, HDL 40 mg/dl 2013 serum Sep 22, triglyceride, serum, TRIGLYCERIDE 104 mg/dl 2013 fasting Sep 22, LDL cholesterol, LDL 93 mg/dl 2013 serum Mar 23, sodium, serum SODIUM 140 mmol/L [phone] Mar 23, potassium, serum POTASSIUM 4.0 mmol/L [...] Mar 23, cholesterol, serum CHOLESTEROL 139 mg/dl [phone] Mar 23, HDL cholesterol, HDL 47 mg/dl 26-62 2013 serum Mar 23, LDL cholesterol, LDL 79 mg/dl 0-130 2013 serum Mar 23, thyroid stimulating TSH 2.23 0.34-5.60 2013 hormone, serum uIU/mL Sep 25, sodium, serum SODIUM 138 mmol/L [phone] Sep 25, potassium, serum POTASSIUM 3.9 mmol/L [...] Sep 25, cholesterol, serum CHOLESTEROL 140 mg/dl [phone] Sep 25, HDL cholesterol, HDL 42 mg/dl -62 2014 serum Sep 25, LDL cholesterol, LDL 74 mg/dl 0-130 2014 serum
--- OUTSIDE RECORDS SUMMARY | 2018-11-10 16:51 | XMS REPORT | Continuity of Care Document ---
:1940 Author Organization [facility] Care Team Providers Name Role Phone WARNER [...] Performer Location Date Office Visit WARNER GuzmanP-C [facility] October 30, 2014 Family Practice Allergies, Adverse Reactions, Alerts Type Substance Reaction Status Drug allergy ZETIA achy Active Drug allergy CRESTOR achy Active Drug allergy CIPRO Inactive Drug allergy PCN rash as a child Active Drug allergy CIPRO Inactive Problems Problem Effective Dates Problem Status CAD Inactive HYPERCHOLESTEROLEMIA Active ESSENTIAL HYPERTENSION Active CARCINOMA, PROSTATE Mar 11, 2012 Active CORONARY ATHEROSCLEROSIS OF [place] CORONARY ARTERY Jun 22, 1959 Active HYPERTENSIVE HEART DISEASE, BENIGN, 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, 1959 Active FAILURE ABDOMINAL PAIN, GENERALIZED Aug 13, 2012 Inactive ATRIAL FIBRILLATION May 17, 2013 Active DERMATITIS, CONTACT, NOS Feb 13, 2014 Inactive WOUND, FOOT Mar 06, 2014 Inactive RETIREMENT MEDICATION USE NEC Mar 06, 2014 Active [...] TAB DAILY PO Sep 29, 2013 Inactive [id number] LORADAMED 10 MG TABS ONE TAB DAILY [...] Mar 31, sodium, serum SODIUM 139 mmol/L [phone] Mar 31, potassium, serum POTASSIUM 3.7 mmol/L [...] Mar 31, cholesterol, serum CHOLESTEROL 154 mg/dl [phone] Mar 31, HDL cholesterol, HDL 40 mg/dl 2012 serum Sep 22, sodium, serum SODIUM 139 mmol/L [phone] Sep 22, potassium, serum POTASSIUM 3.7 mmol/L [...] Sep 22, cholesterol, serum CHOLESTEROL 154 mg/dl [phone] Sep 22, HDL cholesterol, HDL 40 mg/dl 2013 serum Sep 22, triglyceride, serum, TRIGLYCERIDE 104 mg/dl 2013 fasting Sep 22, LDL cholesterol, LDL 93 mg/dl 2013 serum Mar 23, sodium, serum SODIUM 140 mmol/L [phone] Mar 23, potassium, serum POTASSIUM 4.0 mmol/L [...] Mar 23, cholesterol, serum CHOLESTEROL 139 mg/dl [phone] Mar 23, HDL cholesterol, HDL 47 mg/dl -2013 serum Mar 23, LDL cholesterol, LDL 79 mg/dl 0-130 2013 serum Mar 23, thyroid stimulating TSH 2.23 0.34-5.60 2014 hormone, serum uIU/mL Sep 25, sodium, serum SODIUM 138 mmol/L [phone] Sep 25, potassium, serum POTASSIUM 3.9 mmol/L [...] Sep 25, cholesterol, serum CHOLESTEROL 140 mg/dl [phone] Sep 25, HDL cholesterol, HDL 42 mg/dl 26-62 2014 serum Sep 25, LDL cholesterol, LDL 74 mg/dl 0-130 2014 serum
--- NOTE | 2018-11-10 18:18 | EDPHYS ---
Physician Documentation [facility] Name: Zak Hastings Jr Age: 78 yrs Sex: Male : 1940 Arrival Date: 11/10/2018 Time: 15:03 Bed 28 Private MD: ED Physician Andrew Pappas HPI: 11/10 15:43 This 78 yrs old Male presents to ER via Ambulatory with complaints of chest rn pain. 15:43 The patient or guardian reports chest pain that is located primarily in the substernal rn area. Onset: just prior to arrival. The pain radiates to The chest pain is described as aching. Duration: The patient or guardian reports a single episode, that is now resolved. Severity of pain: At its worst the pain was moderate in the emergency department the pain has resolved. The patient has experienced similar episodes in the past. Reports chest pain, substernal, radiates to back, resolved after 2 nitro and aspirin. Reports hx of 3 stents in past. Was working and very active outside, felt fine and chest pain free, ate food, got in recliner, and took a nap, approx 20 min later woke up with chest pain, moderate. . Historical: - Allergies: 15:12 PENICILLINS; hb 15:12 QUINOLONES; hb - Home Meds: 15:12 aspirin 81 mg Oral TbEC 1 tab once every other day [Active]; Lipitor 20 mg Oral tab 1 hb tab once daily [Active]; lisinopril-hydrochlorothiazide 10-12.5 mg Oral tab 1 tab once daily [Active]; loratadine 10 mg Oral tab 1 tab once daily [Active]; ranitidine HCl 150 mg Oral tab 2 tabs once daily [Active]; Xalatan 0.005 % Opht drop 1 drop once daily [Active]; Xarelto 20 mg Oral tab 1 tab once daily [Active]; - PMHx: 15:12 Hypertension; PROSTATE CA; Atrial Fib; hb - PSHx: 15:12 cardiac stent; Hernia repair; Knee surgery; hydrocele; eye sx; hb - Immunization history:: Adult Immunizations up to date. - Social history:: Smoking status: Patient/guardian denies using tobacco. - Ebola Screening: : No symptoms or risks identified at this time. - Family history:: not pertinent. - Hospitalizations: : No recent hospitalization is reported. ROS: 15:43 Constitutional: Negative for fever, chills, and weight loss, Eyes: Negative for injury, rn pain, redness, and discharge, Neck: Negative for injury, pain, and swelling, Cardiovascular: Negative for palpitations, and edema, Respiratory: Negative for shortness of breath, cough, wheezing, and pleuritic chest pain, Abdomen/GI: Negative for abdominal pain, nausea, vomiting, diarrhea, and constipation, MS/Extremity: Negative for injury and deformity, Skin: Negative for injury, rash, and discoloration, Neuro: Negative for headache, weakness, numbness, tingling, and seizure. Exam: 15:43 Constitutional: This is a well developed, well nourished patient who is awake, alert, rn and in no acute distress. Head/Face: Normocephalic, atraumatic. Eyes: Pupils equal round and reactive to light, extra-ocular motions intact. Lids and lashes normal. Conjunctiva and sclera are non-icteric and not injected. Cornea within normal limits. Periorbital areas with no swelling, redness, or edema. Neck: Trachea midline, no thyromegaly or masses palpated, and no cervical lymphadenopathy. Supple, full range of motion without nuchal rigidity, or vertebral point tenderness. No Meningismus. Cardiovascular: Regular rate and rhythm. No pulse deficits. Respiratory: Lungs have equal breath sounds bilaterally, clear to auscultation. No increased work of breathing, no retractions or nasal flaring. Abdomen/GI: soft, non-tender MS/ Extremity: Pulses equal, no cyanosis. Neurovascular intact. Full, normal range of motion. Equal circumference. Neuro: Awake and alert, GCS 15, oriented to person, place, time, and situation. Cranial nerves II-XII grossly intact. Motor strength 5/5 in all extremities. Sensory grossly intact. Cerebellar exam normal. Normal gait. Vital Signs: 15:08 BP 126 / 78; Pulse 86; Resp 14; Temp 97.9; Pulse Ox 96% on R/A; Weight 90.72 kg; Height ss 6 ft. 1 in. (185.42 cm); Pain 4/10; 16:12 BP 96 / 62; Pulse 61; Resp 18; Temp 98; Pulse Ox 96% on R/A; mg2 17:28 BP 130 / 69; Pulse 62; Resp 18; Pulse Ox 99% on R/A; mg2 18:36 BP 134 / 60; Pulse 59; Resp 18; Temp 98; Pulse Ox 100% on R/A; Pain 0/10; mg2 15:08 Body Mass Index 26.39 (90.72 kg, 185.42 cm) ss MDM: 15:03 Patient medically screened. rn 16:26 Differential diagnosis: acute myocardial infarction, acute pericarditis, anxiety, rn coronary artery disease chest wall pain, esophagitis, gastritis, gastroesophageal reflux disease (GERD), peptic ulcer disease, pericarditis, pleurisy, pneumothorax, stable angina, unstable angina. The patient was not given aspirin in the Emergency Department. Patient reports taking aspirin within the past 24 hours. Data reviewed: vital signs, nurses notes, lab test result(s), EKG, radiologic studies, plain films. ED course: Patient with pain resolved upon arrival, reports more back pain than chest pain. Told him troponin and ecg normal and that safest option would be to be admitted for further cardiac eval given his history, and relieved with nitro. Patient states had cath 1 year ago and Lalo Kunz told him the other vessels and previous stents looked ok, feels like might be muscular vs acid reflux given he was working outside and hauling things as well as has known hiatal hernia. Convinced patient to atleast let me repeat troponin and ecg and if normal patient requests to go home and f/u as outpt. Understands risks and given strict return precautions.. 18:16 ED course: Repeat trop neg. Patient without further episodes since previous to arrival, rn wants to go home. Reports knows to return if returns or worsens.. 11/10 15:14 Order name: Basic Metabolic Panel; Complete Time: 15:59 rn 11/10 15:14 Order name: CBC with Diff; Complete Time: 15:58 rn 11/10 15:14 Order name: NT PRO-BNP; Complete Time: 15:59 rn 11/10 15:14 Order name: Troponin (emerg Dept Use Only); Complete Time: 15:59 rn 11/10 15:14 Order name: XRAY Chest (1 view); Complete Time: 15:58 rn 11/10 17:35 Order name: Troponin (emerg Dept Use Only); Complete Time: 18:16 mg2 11/10 15:14 Order name: EKG; Complete Time: 15:15 rn 11/10 15:14 Order name: Cardiac monitoring; Complete Time: 15:31 rn 11/10 15:14 Order name: EKG - Nurse/Tech; Complete Time: 15:31 rn 11/10 15:14 Order name: IV Saline Lock; Complete Time: 15:31 rn 11/10 15:14 Order name: Labs collected and sent; Complete Time: 15: rn 11/10 15:14 Order name: O2 Per Protocol; Complete Time: 15: rn 11/10 18:02 Order name: EKG Electrocardiogram; Complete Time: 18:02 [facility] 11/10 15:14 Order name: O2 Sat Monitoring; Complete Time: 15: rn 11/10 17:35 Order name: EKG - Nurse/Tech; Complete Time: 17:49 mg2 Administered Medications: 15:31 Not Given (Physician Discretion): Aspirin Chewable Tablet 324 mg PO once; 81 mg tablets mg2 x 4 Disposition: 11/10/18 18:16 Discharged to Home. Impression: Chest pain, unspecified. - Condition is Stable. - Discharge Instructions: Back Pain, Adult, Nonspecific Chest Pain. - Medication Reconciliation Form, Thank You Letter, Antibiotic Education, Prescription Opioid Use form. - Follow up: Benito Kunz; When: 2 - 3 days; Reason: Recheck today's complaints, Re-evaluation by your physician. - Problem is new. - Symptoms are resolved. Signatures: Dispatcher [employer] EDPR Andrew Pappas MD MD rn Baxter, Heather, RN RN Jairo Messina RN RN mg2 Corrections: (The following items were deleted from the chart) 18:37 18:16 11/10/2018 18:16 Discharged to Home. Impression: Chest pain, unspecified. mg2 Condition is Stable. Discharge Instructions: Back Pain, Adult, Nonspecific Chest Pain. Forms are Medication Reconciliation Form, Thank You Letter, Antibiotic Education, Prescription Opioid Use. Follow up: Benito Kunz; When: 2 - 3 days; Reason: Recheck today's complaints, Re-evaluation by your physician. Problem is new. Symptoms are resolved. rn
--- NOTE | 2018-11-10 18:18 | ER ---
Nurse's Notes [facility] Name: Zak Hastings Jr Age: 78 yrs Sex: Male : 1940 Arrival Date: 11/10/2018 Time: 15:03 Bed 28 Private MD: Diagnosis: Chest pain, unspecified Presentation: 11/10 15:09 Presenting complaint: Upper back pain that radiates to chest and palpitations that hb began after working in yard this morning. Pain was somewhat relieved after Nitro x 2. Also c/o nausea and mild SOB. Transition of care: patient was not received from another setting of care. Onset of symptoms was November 10, 2018. Risk Assessment: Do you want to hurt yourself or someone else? Patient reports no desire to harm self or others. Care prior to arrival: Medication(s) given: Nitroglycerin, 0.4 mg SL x 2. 15:09 Acuity: BRUCE 3 hb 15:09 Method Of Arrival: Ambulatory hb 15:34 Initial Sepsis Screen: Does the patient meet any 2 criteria? No. Patient's initial mg2 sepsis screen is negative. Does the patient have a suspected source of infection? No. Patient's initial sepsis screen is negative. Historical: - Allergies: 15:12 PENICILLINS; hb 15:12 QUINOLONES; hb - Home Meds: 15:12 aspirin 81 mg Oral TbEC 1 tab once every other day [Active]; Lipitor 20 mg Oral tab 1 hb tab once daily [Active]; lisinopril-hydrochlorothiazide 10-12.5 mg Oral tab 1 tab once daily [Active]; loratadine 10 mg Oral tab 1 tab once daily [Active]; ranitidine HCl 150 mg Oral tab 2 tabs once daily [Active]; Xalatan 0.005 % Opht drop 1 drop once daily [Active]; Xarelto 20 mg Oral tab 1 tab once daily [Active]; - PMHx: 15:12 Hypertension; PROSTATE CA; Atrial Fib; hb - PSHx: 15:12 cardiac stent; Hernia repair; Knee surgery; hydrocele; eye sx; hb - Immunization history:: Adult Immunizations up to date. - Social history:: Smoking status: Patient/guardian denies using tobacco. - Ebola Screening: : No symptoms or risks identified at this time. - Family history:: not pertinent. - Hospitalizations: : No recent hospitalization is reported. Screenin:32 Abuse screen: Denies threats or abuse. Denies injuries from another. Nutritional mg2 screening: No deficits noted. Tuberculosis screening: No symptoms or risk factors identified. Fall Risk IV access (20 points). Assessment: 15:32 General: Appears in no apparent distress. comfortable, Behavior is calm, cooperative. mg2 Pain: Complains of pain in chest Pain does not radiate. Pain currently is 2 out of 10 on a pain scale. Quality of pain is described as aching, Pain began gradually, this morning Is intermittent. Neuro: Level of Consciousness is awake, alert, obeys commands, Oriented to person, place, time, situation. Neuro:. Cardiovascular: Capillary refill < 3 seconds Patient's skin is warm and dry. Cardiovascular: Reports chest pain. Respiratory: Airway is patent Respiratory effort is even, unlabored, Respiratory pattern is regular, symmetrical. GI: No signs and/or symptoms were reported involving the gastrointestinal system. : No signs and/or symptoms were reported regarding the genitourinary system. EENT: No signs and/or symptoms were reported regarding the EENT system. Derm: Skin is intact, is healthy with good turgor, Skin is pink, warm \T\ dry. normal. Musculoskeletal: Circulation, motion, and sensation intact. Capillary refill < 3 seconds. 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 mg2 18:36 Reassessment: Patient states feeling better. Patient states symptoms have improved. mg2 Vital Signs: 15:08 BP 126 / 78; Pulse 86; Resp 14; Temp 97.9; Pulse Ox 96% on R/A; Weight 90.72 kg; Height ss 6 ft. 1 in. (185.42 cm); Pain 4/10; 16:12 BP 96 / 62; Pulse 61; Resp 18; Temp 98; Pulse Ox 96% on R/A; mg2 17:28 BP 130 / 69; Pulse 62; Resp 18; Pulse Ox 99% on R/A; mg2 18:36 BP 134 / 60; Pulse 59; Resp 18; Temp 98; Pulse Ox 100% on R/A; Pain 0/10; mg2 15:08 Body Mass Index 26.39 (90.72 kg, 185.42 cm) ED Course: 15:03 Patient arrived in ED. hb 15:03 Andrew Pappas MD is Attending Physician. rn 15:05 Jairo Messina, RN is Primary Nurse. mg2 15:10 EKG done, by records management technician. reviewed by Andrew Pappas MD. at1 15:11 Triage completed. hb 15:11 Arm band placed on. hb 15:34 Patient has correct armband on for positive identification. Door closed. Warm blanket mg2 given. 15:34 No provider procedures requiring assistance completed. Inserted saline lock: 20 gauge mg2 in right forearm, using aseptic technique. Blood collected. 15:37 X-ray completed. Portable x-ray completed in exam room. Patient tolerated procedure ml well. 15:42 XRAY Chest (1 view) In Process Unspecified. EDMS 18:00 Repeat EKG was done. sm3 18:16 Benito Kunz MD is Referral Physician. rn 18:37 IV discontinued, intact, bleeding controlled, No redness/swelling at site. Pressure mg2 dressing applied. Administered Medications: 15:31 Not Given (Physician Discretion): Aspirin Chewable Tablet 324 mg PO once; 81 mg tablets mg2 x 4 Outcome: 18:16 Discharge ordered by . rn 18:37 Discharged to home ambulatory, with family. mg2 18:37 Condition: stable 18:37 Discharge instructions given to patient, family, Instructed on discharge instructions, follow up and referral plans. Demonstrated understanding of instructions, follow-up care. 18:37 Patient left the ED. mg2 Signatures: Dispatcher [employer] Zina Chisholm Andrew Pappas MD MD rn Smirch, Shelby, RN RN Betty Sylvester, car mechanic helper EKG Tat1 Nury Gracia RN RN Jairo Messina, RN RN mg2 Kendal Chowdary sm3
[2018-11-10 19:40] VITALS: TEMP 98
[2018-11-10 19:43] VITALS: BP 134/60; O2SAT 100
--- NOTE | 2018-11-11 16:33 | EKG ---
Test Date: 2018-11-10 Test Time: 17:45:02 Him Director: TIMMY MEASUREMENT RESULTS: Intervals: Rate: 43 WI: 184 QRSD: 98 QT: 460 QTc: 388 [place]: P: 24 WI: 184 QRS: 22 T: 16 INTERPRETIVE STATEMENTS: Marked sinus bradycardia Abnormal ECG Compared to ECG 11/10/2018 15:10:55 Sinus rhythm no longer present Sinus arrhythmia no longer present Electronically Signed On 11-11-18 16:32:21 CDT by Benito Kunz
--- NOTE | 2018-11-11 16:34 | EKG ---
Test Date: 2018-11-10 Test Time: 15:10:55 Masonry Teacher: ANTHONY MEASUREMENT RESULTS: Intervals: Rate: 76 SC: 176 QRSD: 94 QT: 374 QTc: 420 [place]: P: 37 SC: 176 QRS: 28 T: 0 INTERPRETIVE STATEMENTS: Normal sinus rhythm with sinus arrhythmia Normal ECG Compared to ECG 01/11/2018 15:32:59 No significant changes Electronically Signed On 11-11-18 16:32:41 CDT by Benito Kunz
== END 2018-11-10 18:37 | disposition home or self-care (01) ==
LOC: ER 15:01
DX: R07.9 Chest pain, unspecified (principal); I10 Essential (primary) hypertension; I48.91 Unspecified atrial fibrillation; C61 Malignant neoplasm of prostate; Z88.0 Allergy status to penicillin; Z88.8 Allergy status to other drugs, medicaments and biological substances
CPT/HCPCS: 36415; 71045; 80048; 83880; 84484; 85025; 93005; 99284

== ENCOUNTER 2020-01-01 12:24 | Observation (INO) | payer OTHER ==
--- OUTSIDE RECORDS SUMMARY | 2020-01-01 12:27 | XMS REPORT | Clinical Summary ---
:1940 Author Organization [facility] Address [address] [place] [address] Care Team Providers Name Role Phone Pawel Multani Primary Care Provider Unavailable Allergies Active [...] solution lisinopril Take 10 mg by 0 Activ e (PRINIVIL,ZESTRIL) 10 MG mouth daily. 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
--- OUTSIDE RECORDS SUMMARY | 2020-01-01 12:27 | XMS REPORT | Clinical Summary ---
:1940 Author Organization [facility] Address [address] [place] [address] Care Team Providers Name Role Phone MD Nerissa Primary Care Provider Allergies Active Allergy Reactions [...] mg by 0 Activ e (PRINIVIL,ZESTRIL) 10 mg mouth. 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
--- OUTSIDE RECORDS SUMMARY | 2020-01-01 12:29 | XMS REPORT | Summary of Care ---
:1940 Author Organization [facility] Address [id number] Care Team Providers Name Role Phone Nerissa Primary Care Provider Josh Zimmer MD Unavailable Reason for Visit Reason Comments Decreased Visual Acuity Encounter Details Date Type Department Care Team Description [facility] Xiomara Rodriguez MD [facility] 1977 [address] [place] [address] [place], [place] [phone] [id number] [phone] Allergies Active Allergy Reactions Severity Noted Date Comments Levaquin Other (See Comments) 04/15/2016 Tendon pain Levofloxacin Other (See Comments) 04/15/2016 Tendon pain Penicillins Rash Low 02/19/2011 As a child documented as of this encounter (statuses as of 11/16/2019) Medications Medication Sig Dispensed Refills Start Date End Date Status ASPIRIN 81 mg. 0 Active latanoprost (XALATAN) Apply 1 Drop to 0 Active 0.005 % ophthalmic eye every solution evening. RANITIDINE HCL 0 Activ e Loratadine 10 MG CAPS Take by mouth. 0 Active atorvastatin (LIPITOR) 20 Take 20 mg by 0 Active MG tablet mouth daily. gabapentin (NEURONTIN) Take 300 mg by 0 Active 300 MG capsule mouth 3 times daily. 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/21/2015 Prostate cancer (HCCode) 02/05/2013 Hydrocele, unspecified 04/20/2011 Elevated prostate specific antigen (PSA) 04/09/2011 documented as of this encounter (statuses as of 11/16/2019) Social History Tobacco Use Types Packs/Day Years Used Date Former Smoker Cigarettes 0.5 6 Quit: 03/13/19 64 Smokeless Tobacco: Never Used Comments: quit 1962 Alcohol Use Drinks/Week oz/Week Comments Yes drinks beer and wine occasionally Sex Assigned at Date Recorded Male 11/09/2019 5:38 PM CDT Job Start Date Occupation Industry Not on file Not on file Not on file Travel History Travel Start Travel End No recent travel history available. COVID-19 Exposure Response Date Recorded In the last month, have you been in contact with No / Unsure 11/11/2019 9:52 AM CDT someone who was confirmed or suspected to have Coronavirus / COVID-19? documented as of this encounter Last Filed Vital Signs Not on filedocumented in this encounter Progress Notes Xiomara Cook MD - 11/11/2019 10:00 AM CDTASSESSMENT: 1) Cataract OU Cataract - visually significant, diminished quality of vision and affecting activities of daily living such as reading, driving, mobility. Risks, benefits, alternative of cataract surgery discussed with patient including but not limited to loss of vision, bleeding, infection, glaucoma, retina problems, swelling, need for more procedures. Patient elects to proceed with surgery understanding the alternative is to wait or try glasses. Cataract Plan: Eye Both; First eye Right IOL plan: monofocal IOL with a target for distance correction. 2) Scleral thinning OU - s/p sclerel patch graft with tars left eye after XRT for pterygium in the past Doing well observe for now documented in this encounter Plan of Treatment Health Maintenance Due Date Last Done Comments TETANUS SHOT (ADULT) 1955 BMI FOLLOW UP PLAN 1957 FALL SCREEN 02/10/2004 PNEUMOVAX >=65 (PPSV23) 02/10/2004 PREVNAR >= 65 (PCV13) 02/10/2004 FLU VACCINE > 6 MONTHS 01/21/2020 04/14/2017 (Declined) documented as of this encounter Procedures Procedure Name Priority Date/Time Associated Comments Diagnosis CORNEAL TOPOGRAPHY - Routine 11/11/2019 11:28 AM Pterygium of both Results for this OU - BOTH EYES CDT eyes procedure are in the results section. documented in this encounter Results CORNEAL TOPOGRAPHY - OU - BOTH EYES (11/11/2019 11:28 AM CDT) Specimen Narrative Performed At Right Eye Progression has been stable. Findings in clude irregular astigmatism. Left Eye Progression has been stable. Findings in clude irregular astigmatism, scarring. documented in this encounter Visit Diagnoses Diagnosis Pterygium of both eyes - Primary Pterygium, unspecified Nuclear senile cataract of both eyes documented in this encounter Insurance Payer Benefit Plan / Subscriber ID Effective Dates Phone Addre ss Type Group [employer] MEDICARE PLAN PPO xxxxxxxx Effective for all [address] [place] [address] documented as of this encounter
--- OUTSIDE RECORDS SUMMARY | 2020-01-01 12:29 | XMS REPORT | Continuity of Care Document ---
:1940 Author Organization [employer] Care Team Providers Name Role Phone [employer] Unavailable Un available Problems Problem Status Onset Classification Date Comments Sourc e Date Reported BRONCHITIS, ACUTE Active Condition 10/30/2014 [facility] 015 Group BACK PAIN, CHRONIC Active Condition 10/30/2014 Medical 015 Group BENIGN PAROXYSMAL Active Condition 10/30/2014 [facility] Medical POSITIONAL VERTIGO 014 G roup BODY MASS INDEX Active Condition 10/30/2014 Medical 26.0-26.9, ADULT 014 Max[facility] up WOUND, FOOT Inactive Condition 10/30/2014 Medi alla 014 Group MANAGER TRUST MEDICATION Active Condition 10/30/2014 Medical USE NEC 014 Group DERMATITIS, CONTACT, Inactive Condition 10/30/2014 Medical NOS 014 Group ATRIAL FIBRILLATION Active Condition 10/30/2014 Medical 013 Group ABDOMINAL PAIN, Inactive Condition 10/30/2014 Medical GENERALIZED 013 Group HYPERTENSION [facility] ALLERGIC RHINITIS Active Condition 02/18/2013 [facility] CARCINOMA, PROSTATE Active Condition 10/30/2014 Medical 012 Group CORONARY Active Condition 10/30/2014 Medica l ATHEROSCLEROSIS OF [address] HOH CORONARY ARTERY HYPERTENSIVE HEART Active Condition 10/30/2014 Medical DISEASE, BENIGN, 960 [address] WITHOUT HEART FAILURE GERD Active Condition 02/18/2013 [facility] GREATER TROCHANTERIC Active Condition 02/18/2013 Rodriguez BURSITIS, LEFT [facility] GREATER TROCHANTERIC Active Condition 02/18/2013 Michael BURSITIS, RIGHT [facility] HIP PAIN, BILATERAL Active Condition 02/18/2013 [facility] LATERAL MENISCUS TEAR, Active Condition 02/18/2013 [facility] NECK PAIN Active Condition 02/18/2013 [facility] BACK PAIN, LUMBAR Active Condition 02/18/2013 [facility] OSTEOARTHRITIS, HIPS, Active Condition 02/18/2013 [facility] BILATERAL [facility] KNEE PAIN, LEFT Active Condition 02/18/2013 [facility] MUSCLE STRAIN, RIGHT Active Condition 02/18/2013 Michael [facility] KNEE PAIN, RIGHT Active Condition 02/18/2013 [facility] OSTEOARTHRITIS, KNEE, Active Condition 02/18/2013 [facility] LUMBAR RADICULOPATHY, Active Condition 02/18/2013 [facility] CAD Inactive Condition 10/30/2014 Medica l Group HYPERCHOLESTEROLEMIA Active Condition 10/30/2014 [facility] ESSENTIAL HYPERTENSION Active Condition 10/30/2014 Medical Group CORONARY HEART DISEASE Active Condition 02/15/2014 Medical Group HYPERTENSION Active Condition 02/15/2014 Med ical Group Medications Medication Details Route Status Patient Ordering Order Source Instructions Provider Date LEVAQUIN 500 MG TABS 1 tablet PO Active daily for 10 2014 Medical days Group CHERATUSSIN AC 100-10 10 ml PO Active H MG/5ML SYRP every 12 2014 Medical hours PRN Group cough BENZONATATE 100 MG 1-2 capsules Active CAPS PO TID PRN 2015 Medical cough Group NITROSTAT 0.3 MG SUBL 1 sl q5min Active prn chest 2015 Medical pain Group LOTRISONE 1-0.05 % apply to No Longer CREA rash bid Active 2013 Medical Group METOPROLOL SUCCINATE TAKES ONE Active H ER 25 MG [id number] TAB DAILY PO 2013 Medical Group LORADAMED 10 MG TABS ONE TAB No Longer 09/29/ M H DAILY PO FOR Active 2013 Medical ALLERGYS Group METOPROLOL SUCCINATE TAKES ONE No Longer ER 25 MG [id number] TAB DAILY PO Active 2013 Medical Group SOTALOL HCL 80 MG ONE PO BID No Longer 06/27/ M H TABS Active 2013 Medical Group XARELTO 20 MG TABS one daily Active 2012 Medical Group POTASSIUM CHLORIDE 20 1 tablespoon No Longer MEQ/15ML (10%) SOLN daily mixed Active 2013 Medical in juice Group XALATAN 0.005 % SOLN 1 gtt both Active eyes qd 2013 Medical Group GABAPENTIN 300 MG 1 po tid No Longer CAPS Active 2013 Medical Group TIZANIDINE HCL 4 MG 1 po qhs No Longer 03/31/ H CAPS Active 2013 Medical Group TIZANIDINE HCL 4 MG 1 po qhs No Longer 03/31/ H CAPS Active 2013 Medical Group GABAPENTIN 300 MG 1 po tid No Longer CAPS Active 2013 Medical Group GABAPENTIN 300 MG 1 po tid No Longer CAPS Active 2013 Medical Group CELEBREX 200 MG CAPS 1 PO QD Active 11/01/ [facility] ATENOLOL 50 MG TABS No Longer Active 2013 Medical Group ATENOLOL 50 MG TABS No Longer Active 2013 Medical Group ATENOLOL 50 MG TABS No Longer Active 2013 Medical Group ECOTRIN LOW STRENGTH one every Active H 81 MG TBEC other day 2013 Medical [...] MG TABS one po BID No Longer H Active 2011 Medical Group LISINOPRIL TABS per other Active 03/17/ Uzair vines M.D. 2012 [facility] HYDROCHLOROTHIAZIDE per other Active 03/17/ Cheryl gill CAPS, M.D. 2012 [facility] RANITIDINE HCL 150 MG per other Active 03/17/ Michael FELICIANO M.D. 2012 [facility] ATORVASTATIN CALCIUM per other Active 03/17/ Alvaro ANDREWS M.D. 2012 [facility] CALCIUM TABS per other Active 03/17/ Michael M.Ashanti 2012 [facility] ASPIRIN EC LOW DOSE per other Active chmond 81 MG TBEC M.D. 2012 [facility] UNKNOWN ALLERGY OTC Active 03/17/ Rodriguez MEDICATION 2012 [facility] LISINOPRIL TABS per other Active 03/17/ Uzair nd M.Ashanti 2012 [facility] HYDROCHLOROTHIAZIDE per other Active chleonardo CAPS M.D. 2012 [facility] RANITIDINE HCL 150 MG per other Active 03/17/ Michael CAPS M.D. 2012 [facility] ATORVASTATIN CALCIUM per other Active R ichmond TABS M.D. 2012 [facility] CALCIUM TABS per other Active 03/17/ Michael M.D. 2012 [facility] ASPIRIN EC LOW DOSE per other Active chmond 81 MG TBEC M.D. 2012 [facility] UNKNOWN ALLERGY OTC Active 03/17/ Rodriguez MEDICATION 2012 [facility] RANITIDINE HCL 150 MG 1 tab twice Active TABS daily Medical Group LIPITOR 20 MG TABS 1 tab daily Active M H Medical Group LISINOPRIL-HYDROCHLOR 1 tab daily Active OTHIAZIDE 20-12.5 MG Med ical TABS Group LISINOPRIL-HYDROCHLOR 1 tab daily Active OTHIAZIDE 20-12.5 MG Med ical TABS Group RANITIDINE HCL 150 MG 1 tab twice Active TABS daily Medical Group LISINOPRIL-HYDROCHLOR 1 tab daily Active OTHIAZIDE 20-12.5 MG Med ical TABS Group RANITIDINE HCL 150 MG 1 tab twice Active TABS daily Medical Group Allergies, Adverse Reactions, Alerts Substance Category Reaction Severity Reaction Status Date Comments S ource type Reported PENICILLIN Drug PENICILLIN [facility] allergy 2 [facility] SEASONAL Environment SEASONAL Rodriguez ALLERGIES al allergy ALLERGIES 2 [facility] CIPRO Drug CIPRO allergy 3 Medical Group FLUOROQUINOL Drug FLUOROQUINO Rodriguez ONES allergy LONES [facility] ZETIA Drug ZETIA allergy Medical Group CRESTOR Drug CRESTOR allergy Medical Group PCN Drug PCN allergy Medical Group Immunizations Immunization Date Given Site Status Last Comments Source Updated dT (Diphtheria 03/06/2014 completed [facility] edical and Tetanus) Group immunization for children, #1 dT (Diphtheria 03/06/2014 completed [facility] edical and Tetanus) Group booster given influenza 04/23/2013 completed Medica l immunization (Flu Gr oup Vax) has been administered heptavalent 02/18/2013 completed [facility] pneumococcal [facility] conjugate vaccine (7-valent) #1 heptavalent 02/18/2013 completed [facility] [facility] pneumococcal [facility] conjugate vaccine (7-valent) #2 heptavalent 11/22/2012 completed [facility] [facility] pneumococcal [facility] conjugate vaccine (7-valent) #1 heptavalent 11/22/2012 completed [facility] [facility] pneumococcal [facility] conjugate vaccine (7-valent) #2 heptavalent 11/01/2012 completed [facility] [facility] pneumococcal [facility] conjugate vaccine (7-valent) #1 heptavalent 11/01/2012 completed [facility] [facility] pneumococcal [facility] conjugate vaccine (7-valent) #2 influenza 03/31/2012 completed Medic l immunization (Flu Gr oup Vax) has been administered Results Order Name Results Value Reference Date Interpretation Comments Elisa rce Range Chemistry SODIUM 138 135 - 143 2014 Medical Group Chemistry POTASSIUM 3.9 3.3 - 5.0 2014 Medical Group Chemistry ALBUMIN 3.9 3.5 - 5.0 2014 Medical Group Chemistry CALCIUM 9.3 8.6 - 9.8 2014 Medical Group Chemistry CREATININE 1.07 0.46 - 1.20 2014 Medical Group Chemistry BUN 15 10 - 22 2014 Medical Group Chemistry ALK PHOS 83 32 - 96 2014 Medical Group Chemistry SGOT (AST) 25 10 - 42 2014 Medical Group Chemistry SGPT (ALT) 21 11 - 43 2014 Medical Group Chemistry CHOLESTEROL 140 120 - 200 2014 Medical Group Chemistry HDL 42 26 - 62 2014 Medical Group Chemistry LDL 74 0 - 130 2014 Medical Group Chemistry SODIUM 140 135 - 143 2013 Medical Group Chemistry POTASSIUM 4.0 3.3 - 5.0 2013 Medical Group Chemistry ALBUMIN 3.7 3.5 - 5.0 2013 Medical Group Chemistry CALCIUM 9.5 8.6 - 9.8 2013 Medical Group Chemistry CREATININE 0.82 0.46 - 1.20 2013 Medical Group Chemistry BUN 14 10 - 2013 Medical Group Chemistry ALK PHOS 65 32 - 96 2013 Medical Group Chemistry SGOT (AST) 23 10 - 2013 Medical Group Chemistry SGPT (ALT) 15 11 - 2013 Medical Group Chemistry CHOLESTEROL 139 120 - 200 2013 Medical Group Chemistry HDL 47 26 - 62 2013 Medical Group Chemistry LDL 79 0 - 130 2013 Medical Group Chemistry TSH 2.23 0.34 - 5.60 2013 Medical Group Hematology HGB 13.4 12.3 - 17.3 2013 Medical Group Hematology HCT 39.6 36.7 - 50.5 2013 Medical Group Chemistry TRIGLYCERIDE 104 2013 Medical Group Chemistry LDL 93 2013 Medical Group Chemistry TRIGLYCERIDE 104 2013 Medical Group Chemistry LDL 93 2013 Medical Group Chemistry SODIUM 139 135 - 143 2013 Medical Group Chemistry POTASSIUM 3.7 3.3 - 5.0 2013 Medical Group Chemistry SODIUM 139 135 - 143 2013 Medical Group Chemistry POTASSIUM 3.7 3.3 - 5.0 2013 Medical Group Chemistry ALBUMIN 4.0 3.5 - 5.0 2013 Medical Group Chemistry CALCIUM 9.5 8.6 - 9.8 2013 Medical Group Chemistry CREATININE 0.86 0.46 - 1.20 2013 Medical Group Chemistry BUN 18 10 - 2013 Medical Group Chemistry ALK PHOS 85 32 - 96 2013 Medical Group Chemistry SGOT (AST) 21 10 - 2013 Medical Group Chemistry SGPT (ALT) 15 - 2013 Medical Group Chemistry CHOLESTEROL 154 120 - 200 2013 Medical Group Chemistry HDL 40 26 - 62 2013 Medical Group Chemistry SODIUM 139 135 - 143 2012 Medical Group Chemistry POTASSIUM 3.7 3.3 - 5.0 102012 Medical Group Chemistry SODIUM 139 135 - 143 2012 Medical Group Chemistry POTASSIUM 3.7 3.3 - 5.0 2012 Medical Group Chemistry ALBUMIN 4.0 3.5 - 5.0 2012 Medical Group Chemistry CALCIUM 9.5 8.6 - 9.8 2012 Medical Group Chemistry CREATININE 0.86 0.46 - 1.20 2012 Medical Group Chemistry BUN 18 10 - 22 2012 Medical Group Chemistry ALK PHOS 85 32 - 96 2012 Medical Group Chemistry SGOT (AST) 21 10 - 42 2012 Medical Group Chemistry SGPT (ALT) 15 11 - 43 2012 Medical Group Chemistry CHOLESTEROL 154 120 - 200 2012 Medical Group Chemistry HDL 40 26 - 62 2012 Medical Group Chemistry PSA 4.3 2010 Medical Group Chemistry PSA 4.3 2010 Medical Group Pathology Reports No Data Provided for This Section Diagnostic Reports No Data Provided for This Section Consultation Notes No Data Provided for This Section Discharge Summaries No Data Provided for This Section History and Physicals No Data Provided for This Section Vital Signs Vital Sign Value Date Comments Source Weight 208 10/30/2014 Medical Grou p Temperature Oral (F) 99.1 F 10/30/2014 Medi alla Group Respitory Rate 16 10/30/2014 Medical Gr oup Systolic (mm Hg) 116 10/30/2014 Medical Group Diastolic (mm Hg) 79 10/30/2014 Medical Group Heart Rate 88 10/30/2014 Medical Grou p Weight 203 10/02/2014 Medical Grou p Temperature Oral (F) 97 F 10/02/2014 Medi alla Group Heart Rate 60 10/02/2014 Medical Grou p Systolic (mm Hg) 120 10/02/2014 Medical Group Diastolic (mm Hg) 70 10/02/2014 Medical Group Weight 191 06/07/2014 Medical Grou p Temperature Oral (F) 98.0 F 06/07/2014 Medi alla Group Systolic (mm Hg) 140 06/07/2014 Medical Group Diastolic (mm Hg) 80 06/07/2014 Medical Group Heart Rate 72 06/07/2014 Medical Grou p Respitory Rate 12 06/07/2014 Medical Gr oup Weight 197 03/31/2014 Medical Grou p Temperature Oral (F) 97 F 03/31/2014 Medi alla Group Heart Rate 64 03/31/2014 Medical Grou p Systolic (mm Hg) 130 03/31/2014 Medical Group Diastolic (mm Hg) 70 03/31/2014 Medical Group Weight 198.8 03/06/2014 Medical Grou p Temperature Oral (F) 97.3 F 03/06/2014 Medi alla Group Respitory Rate 16 03/06/2014 Medical Gr oup Heart Rate 60 03/06/2014 Medical Grou p Systolic (mm Hg) 132 03/06/2014 Medical Group Diastolic (mm Hg) 84 03/06/2014 Medical Group Weight 199 02/13/2014 Medical Grou p Temperature Oral (F) 97 F 02/13/2014 Medi alla Group Heart Rate 60 02/13/2014 Medical Grou p Systolic (mm Hg) 140 02/13/2014 Medical Group Diastolic (mm Hg) 70 02/13/2014 Medical Group Weight 204 09/29/2013 Medical Grou p Heart Rate 60 09/29/2013 Medical Grou p Systolic (mm Hg) 130 09/29/2013 Medical Group Diastolic (mm Hg) 60 09/29/2013 Medical Group Weight 199.2 06/27/2013 Medical Grou p Respitory Rate 18 06/27/2013 Medical Gr oup Systolic (mm Hg) 126 06/27/2013 Medical Group Diastolic (mm Hg) 70 06/27/2013 Medical Group Heart Rate 60 06/27/2013 Medical Grou p Weight 194 05/30/2013 Medical Grou p Systolic (mm Hg) 130 05/30/2013 Medical Group Diastolic (mm Hg) 80 05/30/2013 Medical Group Heart Rate 52 05/30/2013 Medical Grou p Weight 194 03/31/2013 Medical Grou p Heart Rate 64 03/31/2013 Medical Grou p Systolic (mm Hg) 120 03/31/2013 Medical Group Diastolic (mm Hg) 70 03/31/2013 Medical Group Weight 217 09/22/2012 Medical Grou p Heart Rate 68 09/22/2012 Medical Grou p Systolic (mm Hg) 140 09/22/2012 Medical Group Diastolic (mm Hg) 68 09/22/2012 Medical Group Weight 210.4 08/13/2012 Medical Grou p Temperature Oral (F) 98 F 08/13/2012 Medi alla Group Respitory Rate 16 08/13/2012 Medical Gr oup Heart Rate 72 08/13/2012 Medical Grou p Systolic (mm Hg) 140 08/13/2012 Medical Group Diastolic (mm Hg) 80 08/13/2012 Medical Group Weight 212 07/12/2012 Medical Grou p Heart Rate 60 07/12/2012 Medical Grou p Systolic (mm Hg) 140 07/12/2012 Medical Group Diastolic (mm Hg) 80 07/12/2012 Medical Group Height 72 03/18/2012 [facility] Weight 200 03/18/2012 [facility] Heart Rate 52 03/18/2012 [facility] Systolic (mm Hg) 140 03/18/2012 [facility] Diastolic (mm Hg) 69 03/18/2012 [facility] Height 72 03/11/2012 Medical Grou p Weight 202 03/11/2012 Medical Grou p Heart Rate 64 03/11/2012 Medical Grou p Systolic (mm Hg) 130 03/11/2012 Medical Group Diastolic (mm Hg) 64 03/11/2012 Medical Group Encounters Location Location Encounter Encounter Reason Attending ADM [place] Stat Source Details Type Number For Provider Date Date Visit [place] [facility] [id number] Wayne 03/18 03/18 [place] [facility] Visit 6450 Darya DOE /2011 [facility] [place] [facility] [id number] Wayne 05/04 05/04 [place] [facility] Visit 7580 Darya DOE /2011 [facility] [place] [facility] [id number] Wayne 11/01 11/01 [place] [facility] Visit 6640 Darya DOE /2012 [facility] [place] [facility] [id number] Wayne 11/22 11/22 [place] [facility] Visit 7230 Darya DOE /2012 [facility] [place] [facility] [id number] Wayne 02/18 02/18 [place] [facility] Visit 6660 Darya DOE /2012 [facility] [place] [id number] Francisco 02/13 02/13 [place] Medical Visit 8360 Nerissa, /2013 Me arlin Castro MD Group Internal Med [facility] Lab Report [id number] Francisco 02/15 02/15 Jonathon 1410 Nerissa, /2013 Medic ruth Chase MD Group Group - [place] [facility] [place] [facility] [id number] Art 03/06 03/06 [place] Medical Visit 2110 Dominic, /2013 Me arlin Burks MD Group Family Practice [facility] Lab Report [id number] Art 03/23 03/23 [place] Medical 0560 [facility], /2013 Me arlin Castro MD Group Internal Med [facility] [place] [facility] [id number] Art 03/31 03/31 [place] Medical Visit 4290 Dominic, /2013 Me arlin Castro MD [facility] Internal Med [facility] [id number] Art 06/07 06/07 [place] Medical Visit 7080 Dominic, /2013 Me arlin Morales MD [facility] Cardiology [facility] Lab Report [id number] Art 09/25 09/25 [place] Medical 9310 [facility], /2014 Me arlin Castro MD [facility] Internal Med [facility] [place] [facility] [id number] Francisco 10/02 10/02 [place] Medical Visit 5670 Nerissa, /2014 [place] arlin Castro MD [facility] Internal Med [facility] [id number] Laure 10/30 10/30 [place] Medical Visit 7470 WARNER Trinh /2014 [facility] Family [facility] Procedures Procedure Code Date Perfomer Comments Source smoking/tobacco 14 03/06/2014 yes Medica l cessation, patient Group education and counseling genitourinary review [id number] 03/17/2012 denies loss of [facility] systems, E&M urine,frequent & Bernadine nt urination,nigh t time urination,pain ful urination,bloo d in urine, or kidney stones Assessment and Plan No Data Provided for This Section Plan of Care No Data Provided for This Section Social History No Data Provided for This Section Family History No Data Provided for This Section Advance Directives No Data Provided for This Section Functional Status No Data Provided for This Section
[2020-01-01 13:11] LABS: Absolute Lymphocytes (CBC) 1.4 K/uL (0.7-4.9); Basophils % 0.6 % (0-1.3); Hematocrit 36.2 % (39.6-49.0); Lymphocytes % 21.3 % (15.3-44.8); MPV 8.7 fL (7.6-11.3); RBC Red Blood Cell Count 4.27 M/uL (4.33-5.43)
[2020-01-01] MEDS ORDERED: NITROGLYCERIN 0.4 MG/TAB SL ONE (13:21)
[2020-01-01 13:30] LABS: BUN Blood Urea Nitrogen 20 mg/dL (7-18); Bicarbonate 30 mmol/L (21-32); Glucose Level 102 mg/dL (74-106); Magnesium 2.2 mg/dL (1.8-2.4); NT PRO-BNP 57 pg/mL (<450); Potassium 3.7 mmol/L (3.5-5.1); Sodium Level 140 mmol/L (136-145); Troponin (Emerg Dept Use Only) < 0.02 ng/mL (0.0-0.045)
--- NOTE | 2020-01-01 13:38 | ER ---
Nurse's Notes [facility] Name: Zak Hastings Jr Age: 79 yrs Sex: Male : 1940 Arrival Date: 01/01/2020 Time: 12:26 Bed 2 Private MD: Diagnosis: Chest pain, unspecified Presentation: 12/31 12:53 Chief complaint: Patient states: chest tightness X 2 hours, took two baby ASA and 1 SL iw Nitro, no relief. Coronavirus screen: Proceed with normal triage. Patient denies a cough. Patient denies shortness of breath or difficulty breathing. Patient denies measured and/or subjective temperature greater than 100.4F prior to today's visit. Patient denies travel on a cruise ship or to a country the [facility] currently lists as an affected area. Patient denies contact with known and/or suspected case of COVID-19. Ebola Screen: Patient negative for fever greater than or equal to 101.5 degrees Fahrenheit, and additional compatible Ebola Virus Disease symptoms Patient denies exposure to infectious person. Patient denies travel to an Ebola-affected area in the 21 days before illness onset. No symptoms or risks identified at this time. Initial Sepsis Screen: Does the patient meet any 2 criteria? No. Patient's initial sepsis screen is negative. Does the patient have a suspected source of infection? No. Patient's initial sepsis screen is negative. Risk Assessment: Do you want to hurt yourself or someone else? Patient reports no desire to harm self or others. Onset of symptoms was January 01, 2020. 12:53 Method Of Arrival: Wheelchair iw 12:53 Acuity: BRUCE 3 iw Triage Assessment: 12:57 General: Appears in no apparent distress. uncomfortable, Behavior is cooperative, bp appropriate for age, anxious. Pain: Complains of pain in chest. EENT: No deficits noted. Neuro: No deficits noted. Cardiovascular: Rhythm is sinus bradycardia. Respiratory: No deficits noted. GI: No signs and/or symptoms were reported involving the gastrointestinal system. : No signs and/or symptoms were reported regarding the genitourinary system. Derm: No deficits noted. Musculoskeletal: No deficits noted. Historical: - Allergies: 12:57 PENICILLINS; iw 12:57 QUINOLONES; iw - Home Meds: 12:57 aspirin 81 mg Oral TbEC 1 tab once every other day [Active]; Lipitor 20 mg Oral tab 1 iw tab once daily [Active]; loratadine 10 mg Oral tab 1 tab once daily [Active]; Xarelto 20 mg Oral tab 1 tab once daily [Active]; famotidine 40 mg Oral tab 1 tab every 12 hours [Active]; gabapentin oral oral four times a day [Active]; lisinopril-hydrochlorothiazide 10-12.5 mg Oral tab 1 tab once daily [Active]; Xalatan 0.005 % Opht drop 1 drop once daily [Active]; - PMHx: 12:57 Atrial Fib; Hypertension; PROSTATE CA; iw - PSHx: 12:57 cardiac stent; Hernia repair; Knee surgery; hydrocele; eye sx; iw - Immunization history:: Adult Immunizations. - Family history:: not pertinent. - Social history:: Smoking status: Patient denies any tobacco usage or history of. - Hospitalizations: : No recent hospitalization is reported. Screenin:59 Abuse screen: Denies threats or abuse. Denies injuries from another. Nutritional bp screening: No deficits noted. Tuberculosis screening: No symptoms or risk factors identified. Fall Risk None identified. Assessment: 12:59 General: SEE TRIAGE NOTE. bp 14:00 Reassessment: ADMIT IN PROCESS. VS STABLE ON MONITOR. bp 15:17 Reassessment: PT REFUSING ADMIT. SIGN OUT AMA. PT URGED TO REMAIN BUT REFUSED. PT bp ENCOURAGED TO RETURN IS S/S RETURN OR WORSEN. Vital Signs: 12:58 BP 133 / 55; Pulse 60; Resp 16; Temp 98.0; Pulse Ox 97% on R/A; iw 13:14 BP 126 / 69; Pulse 57; Resp 11; Pulse Ox 94% ; bp 14:57 BP 107 / 57; Pulse 49; Resp 16; Temp 98.0(O); Pulse Ox 99% on R/A; mh5 ED Course: 12:26 Patient arrived in ED. ag5 12:33 Andrew Pappas MD is Attending Physician. rn 12:36 Lior Abbott, WARNER is Primary Nurse. bp 12:55 Triage completed. iw 12:57 Arm band placed on. bp 12:59 Patient has correct armband on for positive identification. Bed in low position. Call bp light in reach. Side rails up X2. crop or grain farmer on. Pulse ox on. NIBP on. 12:59 Patient maintains SpO2 saturation greater than 95% on room air. bp 13:04 Initial lab(s) drawn, by me, sent to lab. EKG done, by ED staff, reviewed by Andrew Pappas MD. Inserted saline lock: 20 gauge in right wrist, using aseptic technique. Blood collected. 13:05 Basic Metabolic Panel Sent. [facility] 13:05 CBC with Diff Sent. [facility] 13:05 Magnesium Sent. [facility] 13:05 NT PRO-BNP Sent. [facility] 13:06 PT-INR Sent. [facility] 13:06 Troponin (emerg Dept Use Only) Sent. [facility] 13:37 Danielito Arreaga DO is Hospitalizing Provider. rn 14:09 XRAY Chest (1 view) In Process Unspecified. EDMS 15:19 Haja Molina MD is Referral Physician. rn Administered Medications: 13:14 Drug: Nitroglycerin 0.4 mg Route: Sublingual; bp 15:18 Follow up: Response: No adverse reaction bp Outcome: 13:37 Decision to Hospitalize by Provider. rn 15:18 AMA AMA form signed bp 15:18 Condition: stable 15:18 Instructed on the need for admit. 15:30 Patient left the ED. bp Signatures: Dispatcher [employer] EDMS Negrita Obando, Andrew Armstrong RN, MD MD rn Martinez, Maria mh5 Peltier, Brian, RN RN bp Gaskin, Ajare 5
--- NOTE | 2020-01-01 13:38 | EDPHYS ---
Physician Documentation [facility] Name: Zak Hastings Jr Age: 79 yrs Sex: Male : 1940 Arrival Date: 01/01/2020 Time: 12:26 Bed 2 Private MD: ED Physician Andrew Pappas HPI: 12/31 12:46 This 79 yrs old Male presents to ER via Unassigned with complaints of Chest rn Pain, Chest Tightness. 12:46 The patient or guardian reports chest pain that is located primarily in the substernal rn area. Onset: 2 hour(s) ago. The pain does not radiate. The chest pain is described as a heaviness, a pressure. Duration: The patient or guardian reports a single episode, that is still ongoing. Severity of pain: At its worst the pain was moderate in the emergency department the pain has improved. The patient has experienced a previous episode. The patient has not recently seen a physician. Reports chest pain/chest tightness, began 2 hours ago, improved with nitro but not completely resolved, took 2 full dose aspirin. Feels identical to when got right coronary artery stent with Dr. Kunz. No radiation. Happened at rest. . Historical: - Allergies: 12:57 PENICILLINS; iw 12:57 QUINOLONES; iw - Home Meds: 12:57 aspirin 81 mg Oral TbEC 1 tab once every other day [Active]; Lipitor 20 mg Oral tab 1 iw tab once daily [Active]; loratadine 10 mg Oral tab 1 tab once daily [Active]; Xarelto 20 mg Oral tab 1 tab once daily [Active]; famotidine 40 mg Oral tab 1 tab every 12 hours [Active]; gabapentin oral oral four times a day [Active]; lisinopril-hydrochlorothiazide 10-12.5 mg Oral tab 1 tab once daily [Active]; Xalatan 0.005 % Opht drop 1 drop once daily [Active]; - PMHx: 12:57 Atrial Fib; Hypertension; PROSTATE CA; iw - PSHx: 12:57 cardiac stent; Hernia repair; Knee surgery; hydrocele; eye sx; iw - Immunization history:: Adult Immunizations. - Family history:: not pertinent. - Social history:: Smoking status: Patient denies any tobacco usage or history of. - Hospitalizations: : No recent hospitalization is reported. ROS: 12:46 Constitutional: Negative for fever, chills, and weight loss, Neck: Negative for injury, rn pain, and swelling, Cardiovascular: Negative for palpitations, and edema, Respiratory: Negative for shortness of breath, cough, wheezing, and pleuritic chest pain, Abdomen/GI: Negative for abdominal pain, nausea, vomiting, diarrhea, and constipation, MS/Extremity: Negative for injury and deformity, Skin: Negative for injury, rash, and discoloration, Neuro: Negative for headache, weakness, numbness, tingling, and seizure. Exam: 12:46 Constitutional: This is a well developed, well nourished patient who is awake, alert, rn and in no acute distress. Head/Face: Normocephalic, atraumatic. Cardiovascular: Regular rate and rhythm. No JVD. No pulse deficits. Respiratory: Speaking full sentences. No increased work of breathing, no retractions or nasal flaring. Abdomen/GI: soft, non-tender Skin: Warm, dry MS/ Extremity: Pulses equal, no cyanosis. Neuro: Awake and alert, GCS 15 12:50 ECG was reviewed by the Attending Physician. rn Vital Signs: 12:58 BP 133 / 55; Pulse 60; Resp 16; Temp 98.0; Pulse Ox 97% on R/A; iw 13:14 BP 126 / 69; Pulse 57; Resp 11; Pulse Ox 94% ; bp 14:57 BP 107 / 57; Pulse 49; Resp 16; Temp 98.0(O); Pulse Ox 99% on R/A; mh5 MDM: 12:33 Patient medically screened. rn 13:35 Differential diagnosis: acute myocardial infarction, acute pericarditis, coronary rn artery disease pericarditis, pneumothorax, stable angina, unstable angina. The patient was not given aspirin in the Emergency Department. Patient reports taking aspirin within the past 24 hours. Data reviewed: vital signs, nurses notes, lab test result(s), EKG, radiologic studies, plain films, and as a result, I will admit patient. Counseling: I had a detailed discussion with the patient and/or guardian regarding: the historical points, exam findings, and any diagnostic results supporting the discharge/admit diagnosis, lab results, radiology results, the need for further work-up and treatment in the hospital. Response to treatment: the patient's symptoms have mildly improved after treatment, and as a result, I will admit patient. Admission orders: after a detailed discussion of the patient's condition and case, the admit orders are written by me. ED course: Pt without ischemia on ecg, trop neg, but identical to previous cath when required stent, and now happened while at rest, also relieved by nitro. Will admit for chest pain and cardiology consultation. . 13:58 Test interpretation: by ED physician or midlevel provider: ECG, plain radiologic rn studies, CXR neg for acute infiltrate. 15:16 ED course: After being admitted for approx 1.5 hours, and evaluated by hospitalist rn service, patient decides he currie snot want to be admitted, understands that the neg tests in ER do not indicate absence of disease or cardiac problems, and understands risks of leaving. Plans to make appt with Dr. Molina as outpt, and will return if things worsen. . 12/31 12:44 Order name: Basic Metabolic Panel; Complete Time: 13:34 rn 12/31 12:44 Order name: CBC with Diff; Complete Time: 13:34 rn 12/31 12:44 Order name: Magnesium; Complete Time: 13:34 rn 12/31 12:44 Order name: NT PRO-BNP; Complete Time: 13:34 rn 12/31 12:44 Order name: PT-INR; Complete Time: 13:34 rn 12/31 12:44 Order name: Troponin (emerg Dept Use Only); Complete Time: 13:34 rn 12/31 12:44 Order name: XRAY Chest (1 view); Complete Time: 15:28 rn 12/31 12:44 Order name: EKG; Complete Time: 12:45 rn 12/31 12:44 Order name: Cardiac monitoring; Complete Time: 12:56 rn 12/31 12:44 Order name: EKG - Nurse/Tech; Complete Time: 12:56 rn 12/31 12:44 Order name: IV Saline Lock; Complete Time: 13:06 rn 12/31 12:44 Order name: Labs collected and sent; Complete Time: 13:06 rn 12/31 12:44 Order name: O2 Per Protocol; Complete Time: 12:56 rn 12/31 12:44 Order name: O2 Sat Monitoring; Complete Time: 12:56 rn EC:50 Rate is 62 beats/min. Rhythm is regular. QRS [place] is Normal. CA interval is normal. QRS rn interval is normal. QT interval is normal. No Q waves. T waves are Normal. No ST changes noted. Clinical impression: Normal ECG. Interpreted by me. Reviewed by me. Administered Medications: 13:14 Drug: Nitroglycerin 0.4 mg Route: Sublingual; bp 15:18 Follow up: Response: No adverse reaction bp Disposition: 01/01/20 15:19 Patient has left against medical advice. Impression: Chest pain, unspecified. - Patients states they are going to Home. - Condition is Stable. - Discharge Instructions: Angina Pectoris, Nonspecific Chest Pain, Pain Without a Known Cause. Follow up: Haja Molina MD; When: 1 - 2 days; Reason: Recheck today's complaints, Re-evaluation by your physician. - Problem is new. - Symptoms have improved. Signatures: Dispatcher [employer] EDMS Negrita Obando RN RN iw Andrew Pappas MD MD rn Peltier, Brian, RN RN bp Corrections: (The following items were deleted from the chart) 15:18 13:37 Hospitalization Ordered by Danielito Arreaga DO for Observation. Preliminary rn diagnosis is Chest pain, unspecified. Bed requested for Telemetry/MedSurg (observation). Status is Observation. Condition is Stable. Problem is new. Symptoms have improved. rn 15:30 15:19 01/01/2020 15:19 Patients has left against medical advice. Impression: Chest bp pain, unspecified. Patient states they are going to Home. Condition is Stable. Follow up: Haja Molina; When: 1 - 2 days; Reason: Recheck today's complaints, Re-evaluation by your physician. Problem is new. Symptoms have improved. rn
--- NOTE | 2020-01-01 14:16 | P.HP ---
Certification for Inpatient Patient admitted to: Observation With expected LOS: <2 Midnights Patient will require the following post-hospital care: None Practitioner: I am a practitioner with admitting privileges, knowledge of patient current condition, hospital course, and medical plan of care. Services: Services provided to patient in accordance with Admission requirements found in Title 42 Section 412.3 of the Code of Federal Regulations <RandellRoberto - Last Filed: 01/01/20 14:11> Patient admitted to: Observation With expected LOS: <2 Midnights <Danielito Arreaga - Last Filed: 01/01/20 15:14> Patient History Date of Service: 01/01/20 Reason for admission: Chest pain History of Present Illness: 79-year-old male with medical history of paroxysmal atrial fibrillation, CAD, hyperlipidemia, hypertension, prostate cancer presents the emergency department with a 1 day history of chest tightness. Patient reports that he has a number of contributing factors and he is unsure if this chest pain is cardiac or not. Patient reports that he has a hiatal hernia as well as a injury to his back the damage the nerves supplying the area. Patient was worked up in the emergency department found to have negative troponins, EKG without acute findings, normal chest x-ray. Patient reports that he had a cardiac catheterization 2 years ago stent placement and a stress test with echocardiogram in August of this year. Patient will be admitted for observation. - Past Medical/Surgical History Diabetic: No -: HTN -: Afib -: CAD -: Prostate CA -: Stent Placement 1998 -: Hernia Repair -: Knee sx (right) -: Hydrocel sx -: Sinus sx -: Left eye sx Psychosocial/ Personal History: Patient lives at home with his - Family History Family History: Reviewed- Non-Contributory - Social History Smoking Status: Former smoker Alcohol use: Yes CD- Drugs: No Caffeine use: Yes Place of Residence: Home <Roberto Mejias - Last Filed: 01/01/20 14:11> Date of Service: 01/01/20 Home medications list reviewed: Yes <Danielito Arreaga - Last Filed: 01/01/20 15:14> Allergies Penicillins Allergy (Verified 01/11/18 21:16) Hives Quinolones Allergy (Verified 01/11/18 21:16) Hives Home Medications: Gabapentin [Neurontin*] 300 mg PO TID 01/11/18 Latanoprost/Pf [Latanoprost 0.005% Eye Drop] 1 drop EACH EYE DAILY 01/11/18 Ranitidine [Zantac*] 150 mg PO BID 01/11/18 Aspirin [Aspirin EC 81 MG] 81 mg PO DAILY #30 tablet. 01/14/18 Atorvastatin Calcium [Lipitor] 80 mg PO BEDTIME #30 tab 01/14/18 Latanoprost/Pf [Latanoprost 0.005% Eye Drop] 1 drop EACH EYE DAILY 01/14/18 Losartan Potassium 100 mg PO DAILY #30 tablet 01/14/18 Metoprolol Tartrate [Lopressor*] 12.5 mg PO [id number] #30 tab 01/14/18 Prasugrel Hydrochloride [Effient*] 10 mg PO DAILY #30 tab 01/14/18 Review of Systems 10-point ROS is otherwise unremarkable Cardiovascular: Chest Pain <Roberto Mejias - Last Filed: 01/01/20 14:11> Physical Examination - Physical Exam General: Alert, In no apparent distress HEENT: Atraumatic, PERRLA, Mucous membr. moist/pink, EOMI, Sclerae nonicteric Neck: Supple, 2+ carotid pulse no bruit, No LAD, Without JVD or thyroid abnormality Respiratory: Clear to auscultation bilaterally, Normal air movement Cardiovascular: Regular rate/rhythm, Normal S1 S2 Gastrointestinal: Normal bowel sounds, No tenderness Musculoskeletal: No tenderness Integumentary: No rashes Neurological: Normal gait, Normal speech, Normal strength at 5/5 x4 extr, Normal tone, Normal affect - Studies Laboratory Data (last 24 hrs) 01/01/20 13:00: PT 11.8, INR 1.00 01/01/20 13:00: WBC 6.5, Hgb 11.7 L, Hct 36.2 L, Plt Count 201 01/01/20 13:00: Sodium 140, Potassium 3.7, BUN 20 H, Creatinine 0.99, Glucose 102, Magnesium 2.2 <Roberto Mejias - Last Filed: 01/01/20 14:11> - Studies Laboratory Data (last 24 hrs) 01/01/20 13:00: PT 11.8, INR 1.00 01/01/20 13:00: WBC 6.5, Hgb 11.7 L, Hct 36.2 L, Plt Count 201 01/01/20 13:00: Sodium 140, Potassium 3.7, BUN 20 H, Creatinine 0.99, Glucose 102, Magnesium 2.2 <Danielito Arreaga - Last Filed: 01/01/20 15:14> Assessment and Plan - Plan Assessment Chest pain Paroxysmal atrial fibrillation on chronic anticoagulation therapy Hypertension Hyperlipidemia CAD Prostate cancer GERD Plan Chest pain: Patient still some mild chest tightness, patient was given nitroglycerin in the emergency department which had some effect on chest pain. Will try and troponins, patient with recent echocardiogram and stress test. Cardiology has been consulted, will await further input from cardiology. Patient will remain on telemetry throughout this hospitalization. Will continue patient's Xarelto for DVT prophylaxis. Paroxysmal atrial fibrillation on chronic anticoagulation therapy: Continue Xarelto Hypertension: Home medications have been continued, will continue to monitor. Hyperlipidemia: Home medications have been continued. Will obtain lipid panel. CAD: Continues a Xarelto Prostate cancer: The patient has not been treated at this time, will monitor for urinary retention GERD: Continue patient's home medications Pepcid Discharge Plan: Home Plan to discharge in: 24 Hours - Advance Directives Does patient have a Living Will: No Does patient have a Durable POA for Healthcare: No - Code Status/Comfort Care Code Status Assessed: Yes (Patient is full code) Critical Care: No Time Spent Managing Pts Care (In Minutes): 55 <Roebrto Mejias - Last Filed: 01/01/20 14:11> - Plan Care discussed with nurse practitioner. Agree with evaluation, assessment and plan of care. Will discuss further with cardiology. Anticipate improvement over the next 24 hr with possible discharge. <Danielito Arreaga - Last Filed: 01/01/20 15:14>
--- NOTE | 2020-01-01 15:24 | RAD REPORT ---
EXAM DESCRIPTION: Chucky Single View01/01/2020 2:08 pm CLINICAL HISTORY: Chest pain COMPARISON: 2019 FINDINGS: The lungs appear clear of acute infiltrate. The heart is normal size Moderate hiatal hernia. Benign sclerotic density within an the anterior upper left rib IMPRESSION: No acute abnormalities displayed
--- NOTE | 2020-01-01 15:28 | P.DS ---
Admission Date: 01/01/20 Discharge Date: 01/01/20 Disposition: AMA-LEFT AGAINST MEDICAL ADVIC Reason for Admission: Chest pain Consultations: Cardiology- patient left AMA before he was seen by starch cooker. Procedures: Chest x-ray COMPARISON: 2019 FINDINGS: The lungs appear clear of acute infiltrate. The heart is normal size Moderate hiatal hernia. Benign sclerotic density within an the anterior upper le ft rib IMPRESSION: No acute abnormalities displayed Medical problem list Chest pain Paroxysmal atrial fibrillation on chronic anticoagulation therapy Hyperlipidemia Hypertension Prostate cancer Brief History of Present Illness: 79-year-old male with medical history of paroxysmal atrial fibrillation, CAD, hyperlipidemia, hypertension, prostate cancer presents the emergency department with a 1 day history of chest tightness. Patient reports that he has a number of contributing factors and he is unsure if this chest pain is cardiac or not. Patient reports that he has a hiatal hernia as well as a injury to his back the damage the nerves supplying the area. Patient was worked up in the emergency department found to have negative troponins, EKG without acute findings, normal chest x-ray. Patient reports that he had a cardiac catheterization 2 years ago stent placement and a stress test with echocardiogram in August of this year. Patient will be admitted for observation. Hospital Course: Interviewed patient, completed H&P and admission orders, was planning on trending patient's troponin level and consulting with cardiology. While patient was still in the emergency department after I left instructed the emergency department physician that he wanted to leave due to fear of ryan COVID. ED physician attempted to convince patient to stay for evaluation but he stated he was uncomfortable in rather go home. The patient is informed of risks of leaving against medical advice including . We recommended that he follows up with Cardiology on an outpatient basis, strict return precautions given. Patient has had recent normal stress test and echocardiogram. The patient will continue with his home medications. Notified cardiology that patient will be leaving against medical advice. Hopefully he will do well. General: Alert, In no apparent distress HEENT: Atraumatic, PERRLA, EOMI Neck: Supple, JVD not distended Respiratory: Clear to auscultation bilaterally, Normal air movement Cardiovascular: Regular rate/rhythm, Normal S1 S2 Gastrointestinal: Normal bowel sounds, No tenderness Musculoskeletal: No tenderness Integumentary: No rashes Neurological: Normal speech, Normal tone, Normal affect Laboratory Data at Discharge: WBC 6.5 K/uL (4.3-10.9) 01/01/20 13:00 Hgb 11.7 g/dL (13.6-17.9) L 01/01/20 13:00 Hct 36.2 % (39.6-49.0) L 01/01/20 13:00 Plt Count 201 K/uL (152-406) 01/01/20 13:00 PT 11.8 SECONDS (9.5-12.5) 01/01/20 13:00 INR 1.00 01/01/20 13:00 Sodium 140 mmol/L (136-145) 01/01/20 13:00 Potassium 3.7 mmol/L (3.5-5.1) 01/01/20 13:00 BUN 20 mg/dL (7-18) H 01/01/20 13:00 Creatinine 0.99 mg/dL (0.55-1.3) 01/01/20 13:00 Glucose 102 mg/dL (74-106) 01/01/20 13:00 Magnesium 2.2 mg/dL (1.8-2.4) 01/01/20 13:00 Home Medications: Gabapentin [Neurontin*] 300 mg PO TID 01/11/18 Latanoprost/Pf [Latanoprost 0.005% Eye Drop] 1 drop EACH EYE DAILY 01/11/18 Ranitidine [Zantac*] 150 mg PO BID 01/11/18 Aspirin [Aspirin EC 81 MG] 81 mg PO DAILY #30 tablet. 01/14/18 Atorvastatin Calcium [Lipitor] 80 mg PO BEDTIME #30 tab 01/14/18 Latanoprost/Pf [Latanoprost 0.005% Eye Drop] 1 drop EACH EYE DAILY 01/14/18 Losartan Potassium 100 mg PO DAILY #30 tablet 01/14/18 Metoprolol Tartrate [Lopressor*] 12.5 mg PO PTIVQ1DM #30 tab 01/14/18 Prasugrel Hydrochloride [Effient*] 10 mg PO DAILY #30 tab 01/14/18 Diet: ADA Activity: Ad angela Time spent managing pt's care (in minutes): 30
[2020-01-01 15:34] VITALS: TEMP 98
[2020-01-01 15:40] VITALS: BP 107/57; O2SAT 99
== END 2020-01-01 15:36 | disposition left against medical advice (07) ==
LOC: ER 12:24 → ERHOLD 13:59
PROVIDERS: ADMIT Family Medicine; ATTEND Family Medicine
DX: R07.89 Other chest pain (principal); I48.0 Paroxysmal atrial fibrillation; E78.5 Hyperlipidemia, unspecified; I10 Essential (primary) hypertension; C61 Malignant neoplasm of prostate; I25.10 Atherosclerotic heart disease of native coronary artery without angina pectoris; Z53.29 Procedure and treatment not carried out because of patient's decision for other reasons; Z79.01 Long term (current) use of anticoagulants; Z79.82 Long term (current) use of aspirin; Z79.899 Other long term (current) drug therapy; Z95.5 Presence of coronary angioplasty implant and graft; Z87.891 Personal history of nicotine dependence
CPT/HCPCS: 93005; 85025; 80048; 36415; 83735; 85610; 84484; 83880; 71045; 99285; G0378

== ENCOUNTER 2021-06-03 17:21 | Emergency (ER) | payer OTHER ==
--- OUTSIDE RECORDS SUMMARY | 2021-06-03 17:23 | XMS REPORT | Continuity of Care Document ---
:1940 Author Organization [facility] t Address [address] [place] [address] Care Team Providers Name Role Phone Pawel CISNEROS Primary Care Physician Unavailable JOYCE Attending Clinician Unavailable Joyce DOE, S. 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 [facility] a of a of 0-24 College prostate prostate 00:00: of without without 00 Medicin lower lower e urinary urinary tract tract symptoms symptoms (LUTS) (LUTS) Pterygium Pterygium Disease Active [facility] 7 College 00:00: of 00 Medicin e 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 00:00: of 00 Medicin e Prostate Prostate Disease Active [facility] cancer cancer 8-17 [place] (HCCode) (HCCode) 00:00: of 00 Medicin e Hydrocele, Hydrocele, Disease Active 2010-06 [facility] unspecifie unspecifie 0-30 Co llege d d 00:00: of 00 Medicin e Elevated Elevated Disease Active 2010-06 [facility] prostate prostate 0-19 Colleg e specific specific 00:00: of antigen antigen 00 Medicin (PSA) (PSA) e Allergies, Adverse Reactions, Alerts Allergy Allergy Status Severity Reaction(s) Onset Inactive Treating Comm ents Source Name Type Date Date Clinician EZETIMIB Allergy Active 2019-[address] [facility] OTHER Allergy Active 2019-[address] [facility] ROSUVAST Allergy Active 2019-[address] [facility]IN [facility] Levaquin Propensi Active Other (See 2015-06 [facility] Dion ylor ty to Comments) 0-25 pain College adverse 00:00: of reaction 00 Medicin s to e drug LEVOFLOX Allergy Active Other 2015-[address] [facility] Levoflox Propensi Active Other (See 2015-06 [facility] Dion gotti ty to Comments) 0-25 pain College adverse 00:00: of reaction 00 Medicin s to e drug PENICILL Allergy Active Low Rash [facility] CIPROFLO Allergy Active [facility] Penicill Propensi Active Rash As a [facility] ins ty to 02-19 child College adverse 00:00: of reaction 00 Medicin s to e drug Social History Social Habit Start Date Stop Date Quantity Comments [facility] Not sure [facility] e SARS-CoV-2 (event) of Med icine Tobacco use and 2020-03-28 2020-03-[address] [facility] llege exposure 00:00:00 00:00:00 of Medicine Cigarettes smoked 2020-03-28 2020-03-28 [facility] current (pack per 00:00:00 00:00:00 of [employer] day) - Reported Cigarette 2020-03-28 2020-03-28 [facility] pack-years 00:00:00 00:00:00 of Medicine Alcohol intake 2020-03-28 2020-03-28 Current drinker of [facility] 00:00:00 00:00:00 alcohol (finding) of [employer] Alcohol Comment 2011-07-02 2011-07-02 drinks beer and [employer] 00:00:00 00:00:00 wine occasionally of Medi cine Tobacco Comment 2011-02-19 2011-02-19 quit 1963 [facility] Co llege 00:00:00 00:00:00 of Medicine History of tobacco 1965-03-13 Cigarette Smoker [facility] use 00:00:00 of Medicine Smoking Status Start Date Stop Date Source Former smoker 2020-03-28 00:00:00 2020-03-28 00:00:00 [facility] C ollege of Medicine Medications Ordered Filled Start Stop Current Ordering Indication Dosage Frequency Signature Comments Components Source Medication Medication Date Date Medication? Clinician (SIG) Name Name trimethopri 2019-06 Yes 1[drp] Place 1 [facility] m-polymyxin 0-05 Drop into Col lege b 00:00: the right of (POLYTRIM) 00 eye 3 Medicin ophthalmic times e solution daily. prednisoLON 2019- Yes 1[drp] Place 1 [facility] E acetate 0-05 Drop into Colle ge (PRED 00:00: the right of FORTE) 1 % 00 eye four Medic in ophthalmic times e suspension daily. Shake well before instillati on Prednisolon 2020-0 Yes 1[drp] Place 1 [facility] -Gatiflox-B 9-28 Drop into Col lege romfenac 00:00: the right of 1-0.5-0.075 00 eye four Medi meghann % SOLN times e daily. Prednisolon 2020-0 Yes 1[drp] Place 1 [facility] -Gatiflox-B 9-28 Drop into Col lege romfenac 00:00: the right of 1-0.5-0.075 00 eye four Medi meghann % SOLN times e daily. Prednisolon 2020-0 2020- No 1[drp] Place 1 [facility] -Gatiflox-B -03-19 Drop into Co llege romfenac 00:00: 00:00 the right of 1-0.5-0.075 00 :00 eye four Medi meghann % SOLN times e daily. Latanoprost 2020-0 Yes [facility] cory Ramos 15 [place] ([facility]) 00:00: of 0.024 % 00 Medicin SOLN e Latanoprost 2020-0 Yes [facility] cory [facility] 415 [place] ([facility]) 00:00: of 0.024 % 00 Medicin SOLN e Latanoprost 2020-0 Yes [facility] cory Bunod 4-15 [place] ([facility]) 00:00: of 0.024 % 00 Medicin SOLN e lisinopril- Yes [facility] hydrochloro 21 [place] thiazide 00:00: of (PRINZIDE, 00 Medicin ZESTORETIC) e 10-12.5 MG per tablet lisinopril- Yes [facility] hydrochloro 10-10 [place] thiazide 00:00: of (PRINZIDE, Medicin ZESTORETIC) e 10-12.5 MG per tablet lisinopril- Yes [facility] hydrochloro 21 [place] thiazide 00:00: of (PRINZIDE, 00 Medicin ZESTORETIC) e 10-12.5 MG per tablet ASPIRIN 2017-06 Yes 81mg 81 mg. [facility] 0 [place] 16:53: of 41 Medicin e ASPIRIN 2017-06 Yes 81mg 81 mg. [facility] [place] 16:53: of 41 Medicin e ASPIRIN 2017-06 Yes 81mg 81 mg. [facility] 0 [place] 16:53: of 41 Medicin e latanoprost Yes 1[drp] Apply 1 [facility] (XALATAN) 4-10 Drop to [place] 0.005 % 16:28: eye every of ophthalmic 11 evening. Medic in solution e RANITIDINE Yes [facility] HCL 4-10 [place] 16:28: of 11 Medicin e Loratadine Yes Take by [place]ake 10 MG CAPS 4-10 mouth. [place] 16:28: of 11 Medicin e atorvastati Yes 20mg Take 20 mg [facility] n (LIPITOR) 4-10 by mouth Ingrid ege 20 MG 16:28: daily. of tablet 11 Medicin e gabapentin Yes 300mg Take 300 Ba [facility] (NEURONTIN) 4-10 mg by College 300 MG 16:28: mouth 3 of capsule 11 times Medicin daily. e latanoprost Yes 1[drp] Apply 1 [facility] (XALATAN) 4-10 Drop to College 0.005 % 16:28: eye every of ophthalmic 11 evening. Medic in solution e RANITIDINE Yes [facility] HCL 4-10 [place] 16:28: of 11 Medicin e Loratadine 2018-0 Yes Take by [place] 10 MG CAPS 4-10 mouth. College 16:28: of 11 Medicin e atorvastati 2018-0 Yes 20mg Take 20 mg Manuelito n (LIPITOR) 4-10 by mouth Ingrid ege 20 MG 16:28: daily. of tablet 11 Medicin e gabapentin 0 Yes 300mg Take 300 [facility] (NEURONTIN) 4-10 mg by College 300 MG 16:28: mouth 3 of capsule 11 times Medicin daily. e latanoprost Yes 1[drp] Apply 1 [facility] (XALATAN) 4-10 Drop to College 0.005 % 16:28: eye every of ophthalmic 11 evening. Medic in solution e RANITIDINE 0 Yes [facility] HCL 4-10 College 16:28: of 11 Medicin e Loratadine Yes Take by [place] [facility] 10 MG CAPS 4-10 mouth. College 16:28: of 11 Medicin e atorvastati Yes 20mg Take 20 mg [facility] n (LIPITOR) 4-10 by mouth Ingrid ege 20 MG 16:28: daily. of tablet 11 Medicin e gabapentin Yes 300mg Take 300 Ba [facility]lor (NEURONTIN) 4-10 mg by [place] 300 MG 16:28: mouth 3 of capsule 11 times Medicin daily. e Vital Signs Vital Name Observation Time Observation Value Comments Source HEIGHT 2020-06-04 15:34:00 182.9 cm WEIGHT 2020-06-04 15:34:00 90.719 kg HEIGHT 2020-03-06 00:00:00 182.9 cm WEIGHT 2020-03-06 00:00:00 89.812 kg Procedures Procedure Date / Time Performed Performing Clinician Sour e IOL BIOMETRY - OU - 2020-03-19 [facility]25[facility] RETINA - OU - 2020-03-19 20:25:45 Xiomara Cook [facility] EYES [facility] CORNEAL TOPOGRAPHY - 2020-03-19 20:25:43 Xiomara Cook [facility] EYES Medicine CORNEAL TOPOGRAPHY - 2019-11-11 16:28:55 Xiomara Cook [facility] College of OU - BOTH EYES Medicine Plan of Care Planned Activity Planned Date Details Comments Source Future Scheduled Test TETANUS SHOT (ADULT) [facility] [code = TETANUS SHOT Medicin e (ADULT)] Future Scheduled Test BMI FOLLOW UP PLAN [facility] [code = BMI FOLLOW UP Medici ne PLAN] Future Scheduled Test FALL SCREEN [code = [facility] of FALL SCREEN] Medicine Future Scheduled Test PNEUMOVAX >=65 [facility] (PPSV23) [code = Medicine PNEUMOVAX >=65 (PPSV23)] Future Scheduled Test PREVNAR >= 65 (PCV13) [facility] [code = PREVNAR >= 65 Medici ne (PCV13)] Future Scheduled Test FLU VACCINE > 6 [facility] College of MONTHS [code = FLU Medicine VACCINE > 6 MONTHS] Future Scheduled Test TETANUS SHOT (ADULT) [facility] [code = TETANUS SHOT Medicin e (ADULT)] Future Scheduled Test BMI FOLLOW UP PLAN [facility] [code = BMI FOLLOW UP Medici ne PLAN] Future Scheduled Test ZOSTER VACCINE (1 of [place] [address]) [code = ZOSTER Medicine VACCINE (1 of 2)] Future Scheduled Test FALL SCREEN [code = [facility] of FALL SCREEN] Medicine Future Scheduled Test PNEUMOVAX >=65 [facility] (PPSV23) [code = Medicine PNEUMOVAX >=65 (PPSV23)] Future Scheduled Test FLU VACCINE > 6 [facility] [employer] of MONTHS [code = FLU Medicine VACCINE > 6 MONTHS] Future Scheduled Test TETANUS SHOT (ADULT) [facility] [code = TETANUS SHOT Medicin e (ADULT)] Future Scheduled Test BMI FOLLOW UP PLAN [facility] [code = BMI FOLLOW UP Medici ne PLAN] Future Scheduled Test ZOSTER VACCINE (1 of [facility] 2) [code = ZOSTER Medicine VACCINE (1 of 2)] Future Scheduled Test FALL SCREEN [code = [facility] of FALL SCREEN] Medicine Future Scheduled Test PNEUMOVAX >=65 [facility] (PPSV23) [code = Medicine PNEUMOVAX >=65 (PPSV23)] Future Scheduled Test FLU VACCINE > 6 [facility] [employer] [facility] [employer] [code = FLU Medicine VACCINE > 6 MONTHS] Encounters Start End Encounter Admission Attending Care Care Encounter Source Date/Time Date/Time Type Type Clinicians Facility Department ID 2021-03-29 Outpatient VANI COOK Surgery [id number] [facility] 18:29:27 [facility] 2021-03-27 Outpatient VANI COOK Surgery [id number] [facility] 07:09:01 [facility] 2020-06-04 2020-06-04 Outpatient [facility] [id number] [facility] 00:00:00 00:00:00 2020-03-28 2020-03-28 Office YUMIKO Cook [id number] [facility] 08:19:58 08:24:58 Visit Xiomara S. AMBULATOR [id number] College Y [id number] of [id number] [facility] meghann 300 e 2020-03-23 2020-03-23 Outpatient [facility] [id number] [facility] 00:00:00 00:00:00 2020-03-19 2020-03-19 Office Xiomara Cook [facility] [id number] [facility] 14:10:13 17:48:04 Visit 2, Ods AMBULATOR [id number] College Y [id number] of [id number] Medi meghann 300 e 2019-11-11 2019-11-11 Office YUMIKO Cook [id number] [facility] 09:54:43 12:16:45 Visit Xiomara S. AMBULATOR [id number] College Y [id number] of [id number] [facility] meghann 300 e Results Test Description Test Time Test Comments Results Result [facility] e Comments CORNEAL 2020-03-20 Right [facility] TOPOGRAPHY - OU - 15:12:24 [facility] has College of BOTH EYES been stable. Medicine Findings include irregular astigmatism. Left EyeProgression has been stable. Findings include irregular astigmatism, scarring. IOL BIOMETRY - OU 2020-03-20 IOL calcs reviewed [facility] - BOTH EYES 15:12:16 [facility] OCT, RETINA - OU 2020-03-20 Right [facility] - BOTH EYES 15:12:03 was good. Scan College o f locations included Medici ne subfoveal. Progression has worsened. Findings include abnormal foveal contour, epiretinal membrane. Left [facility] was good. Scan locations included subfoveal. Progression has been stable. Findings include normal foveal contour. CORNEAL 2019-11-16 Right [facility] TOPOGRAPHY - OU - 20:58:10 [facility] has College of BOTH EYES been stable. Medicine Findings include irregular astigmatism. Left [facility]Progression has been stable. Findings include irregular astigmatism, scarring.
[2021-06-03 19:40] LABS: Absolute Lymphocytes (CBC) 1.3 K/uL (0.7-4.9); Hematocrit 35.7 % (39.6-49.0); Lymphocytes % 30.1 % (15.3-44.8); MPV 8.1 fL (7.6-11.3); RBC Red Blood Cell Count 4.24 M/uL (4.33-5.43)
[2021-06-03] MEDS ORDERED: NA CHLORIDE 0.9% 500 ML ONE (19:48)
[2021-06-03 19:55] LABS: Albumin 3.1 g/dL (3.4-5.0); Bilirubin Direct 0.2 mg/dL (0-0.2); Bilirubin Total 0.6 mg/dL (0.2-1.0); Potassium 4.1 mmol/L (3.5-5.1); Protein, Total 6.5 g/dL (6.4-8.2)
--- NOTE | 2021-06-03 20:35 | RAD REPORT ---
EXAM DESCRIPTION: CTAbdomen Pelvis W Contrast - 06/03/2021 8:12 pm CLINICAL HISTORY: Abdominal pain. ABD PAIN COMPARISON: No comparisons TECHNIQUE: Biphasic CT imaging of the abdomen and pelvis was performed with 100 ml non-ionic IV cont rast. All CT scans are performed using dose optimization technique as appropriate and may include automated exposure control or mA/KV adjustment according to patient size. FINDINGS: The lung bases are clear.Moderate axial hiatal hernia. Mild diffuse fatty liver is present. Cholelithiasis. The spleen, pancreas, adrenal glands and kidneys show no acute process. No bowel obstruction, free air, free fluid or abscess. Prominent sigmoid diverticulosis coli is noted . Descending colon diverticulosis is also present without diverticulitis. The appendix is not identif ied as a discrete structure, however, no secondary findings of appendicitis are identified. No evid ence of significant lymphadenopathy. The prostate gland is moderately enlarged and projects into the bladder base. No suspicious bony findings. Aorto iliac atherosclerosis. IMPRESSION: Cholelithiasis. Moderate colonic diverticulosis without diverticulitis. Moderate axial hiatal hernia.
--- NOTE | 2021-06-03 21:40 | EDPHYS ---
Physician Documentation [facility] Name: Zak Hastings Jr Age: 81 yrs Sex: Male : 1940 Arrival Date: 06/03/2021 Time: 17:25 Bed 15 Private MD: ED Physician Andrew Pappas HPI: 06/03 18:46 This 81 yrs old Male presents to ER via Ambulatory with complaints of Diarrhea. pm1 18:46 The patient presents to the emergency department with diarrhea, abdominal pain, of the pm1 left lower quadrant, described as achy, and does not radiate. Onset: The symptoms/episode began/occurred 1 week(s) ago. Possible causes: unknown, patient was concerned that it might be diverticulitis. Patient called his PCP and a prescription for cipro was called into the pharmacy. The symptoms are aggravated by nothing. The symptoms are alleviated by nothing. Associated signs and symptoms: Pertinent negatives: fever, nausea, vomiting. Severity of symptoms: in the emergency department the symptoms are unchanged. The patient has experienced similar episodes in the past, a few times, today's symptoms are similar, to previous diverticulitis. Historical: - Allergies: 18:54 QUINOLONES; sv1 18:54 PENICILLINS; sv1 - PMHx: 18:53 Hypertension; PROSTATE CA; sv1 18:54 Atrial Fib; sv1 - Immunization history:: Adult Immunizations up to date, Client reports receiving the 2nd dose of the Covid vaccine, Pneumococcal vaccine is up to date, Flu vaccine is up to date. - Social history:: Smoking status: Patient denies any tobacco usage or history of. ROS: 18:46 Constitutional: Negative for fever, chills, and weight loss, Cardiovascular: Negative pm1 for chest pain, palpitations, and edema, Respiratory: Negative for shortness of breath, cough, wheezing, and pleuritic chest pain. 18:46 Back: Negative for injury and pain, : Negative for injury, bleeding, discharge, and swelling, MS/Extremity: Negative for injury and deformity, Skin: Negative for injury, rash, and discoloration, Neuro: Negative for headache, weakness, numbness, tingling, and seizure. 18:46 Abdomen/GI: Positive for abdominal pain, diarrhea, of the left lower quadrant, Negative for nausea and vomiting. 18:46 All other systems are negative. Exam: 18:46 Constitutional: This is a well developed, well nourished patient who is awake, alert, pm1 and in no acute distress. Head/Face: Normocephalic, atraumatic. 18:46 Back: No spinal tenderness. No costovertebral tenderness. Full range of motion. Skin: Warm, dry with normal turgor. Normal color with no rashes, no lesions, and no evidence of cellulitis. MS/ Extremity: Pulses equal, no cyanosis. Neurovascular intact. Full, normal range of motion. 18:46 Eyes: Exam is negative for acute changes, Extraocular movements: no acute changes, Conjunctiva: no acute changes, no injection, Sclera: no acute changes, icterus, is not appreciated. 18:46 Cardiovascular: Exam negative for acute changes, Rate: normal, Rhythm: regular, Pulses: no pulse deficits are appreciated, Heart sounds: normal, Edema: is not appreciated. 18:46 Respiratory: Exam negative for acute changes, respiratory distress, shortness of breath. 18:46 Abdomen/GI: Inspection: abdomen appears normal, Palpation: abdomen is soft and non-tender, in all quadrants. 18:46 Neuro: Exam negative for acute changes, Orientation: is normal, Mentation: is normal, Motor: is normal, moves all fours. Vital Signs: 18:43 BP 139 / 65; Pulse 54; Resp 18 S; Temp 98.2; Pulse Ox 94% on R/A; sv1 19:35 BP 142 / 87; Pulse 77; Resp 17; Temp 98.0; Pulse Ox 91% ; sv1 21:38 BP 181 / 70; Pulse 67; Resp 18; Pulse Ox 100% 0 lpm ; sv1 MDM: 18:33 Patient medically screened. pm1 20:29 Data reviewed: vital signs. pm1 21:38 Counseling: I had a detailed discussion with the patient and/or guardian regarding: the pm1 historical points, exam findings, and any diagnostic results supporting the discharge/admit diagnosis, lab results, radiology results, the need for outpatient follow up, to return to the emergency department if symptoms worsen or persist or if there are any questions or concerns that arise at home. 21:40 ED course: Patient to continue taking cipro as prescribed by his PCP. pm1 21:40 Differential diagnosis: Nonspecific abd pain, gastritis, diverticulitis, viral pm1 gastroenteritis, gastroenteritis. 21:40 ED course: Covid and flu swabs were not performed on the patient. However he does not pm1 want them to be done. 06/03 18:33 Order name: Basic Metabolic Panel pm1 06/03 18:33 Order name: CBC with Diff; Complete Time: 19:58 pm1 06/03 18:33 Order name: Hepatic Function pm1 06/03 18:33 Order name: Lipase; Complete Time: 19:58 pm1 06/03 18:34 Order name: Basic Metabolic Panel; Complete Time: 19:58 EDMS 06/03 18:33 Order name: IV Saline Lock; Complete Time: 19:45 pm1 06/03 18:33 Order name: Labs collected and sent; Complete Time: 19:45 pm1 06/03 18:33 Order name: CT Abd/Pelvis - IV Contrast Only; Complete Time: 20:36 pm1 06/03 18:34 Order name: Liver (Hepatic) Function; Complete Time: 19:58 EDMS Administered Medications: 19:52 Drug: NS 0.9% 500 ml Route: IV; Rate: bolus; Site: right antecubital; sv1 22:02 Follow up: IV Intake: 500ml sv1 22:07 Follow up: IV Intake: 500ml sv1 Disposition: 06/04 07:18 Co-signature as Attending Physician, Andrew Pappas MD I agree with the assessment and rn plan of care. Attestation: The patient's history, exam findings, diagnostics, and a summary of any interventions or procedures was reviewed in detail with Abhilash Craven NP. Disposition Summary: 06/03/21 21:39 Discharge Ordered Location: Home pm1 Problem: new pm1 Symptoms: have improved pm1 Condition: Stable pm1 Diagnosis - Diarrhea, unspecified pm1 - Abdominal pain, unspecified pm1 Followup: pm1 - With: Emergency Department - When: As needed - Reason: Worsening of condition Followup: pm1 - With: Private Physician - When: 2 - 3 days - Reason: Recheck today's complaints, Continuance of care, Re-evaluation by your physician Discharge Instructions: - Discharge Summary Sheet pm1 - Abdominal Pain, Adult pm1 - Food Choices to Help Relieve Diarrhea, Adult pm1 - Diarrhea, Adult pm1 Forms: - Medication Reconciliation Form pm1 - Thank You Letter pm1 - Antibiotic Education pm1 - Prescription Opioid Use pm1 Signatures: Dispatcher [employer] EDMS Andrew Pappas MD MD rn Marinas, Patrick, NP SEWING SUPERVISOR pm1 Keyur Bennett RN RN sv1 Corrections: (The following items were deleted from the chart) 06/03 18:56 18:53 Allergies: PENICILLINS; sv1 sv1 18:56 18:53 Allergies: QUINOLONES; sv1 sv1 18:56 18:53 Home Meds: Lipitor 20 mg Oral tab 1 tab once daily [Inactive]; sv1 1 18:56 18:53 Home Meds: lisinopril-hydrochlorothiazide 10-12.5 mg Oral tab 1 tab once daily sv1 [Inactive]; sv1 : 18:53 Home Meds: aspirin 81 mg Oral TbEC 1 tab once every other day [Inactive]; sv1 1 18: 18:53 Home Meds: Xalatan 0.005 % Opht drop 1 drop once daily [Inactive]; sv1 1 18:56 18:53 Home Meds: loratadine 10 mg Oral tab 1 tab once daily [Inactive]; sv1 sv1 18:56 18:53 Home Meds: Xarelto 20 mg Oral tab 1 tab once daily [Inactive]; sv1 sv1 18:56 18:53 Home Meds: famotidine 40 mg Oral tab 1 tab every 12 hours [Inactive]; sv1 sv1 18:56 18:53 Home Meds: gabapentin oral Oral four times a day [Inactive]; sv1 sv1 18:56 18:53 Home Meds: ranitidine HCl 150 mg Oral tab 2 tabs once daily [Inactive]; sv1 1 18:56 18:53 PMHx: Atrial Fib; sv1 sv1 22:03 18:33 Urine Dipstick-Ancillary ordered. pm1 sv1
--- NOTE | 2021-06-03 21:40 | ER ---
Nurse's Notes [facility] Name: Zak Hastings Jr Age: 81 yrs Sex: Male : 1940 Arrival Date: 06/03/2021 Time: 17:25 Bed 15 Private MD: Diagnosis: Diarrhea, unspecified;Abdominal pain, unspecified Presentation: 06/03 18:43 Chief complaint: Patient states: "I have noticed a change in my bowel patterns over the sv1 past month. I went from being able to "feel" a BM coming and now when I need to go its urgent. On Monday 05/28 I had an "explosive" episode of diarrhea that was extremely watery with bright red blood. I have not had a BM since then until today when the same thing happened.". Coronavirus screen: Vaccine status: Patient reports receiving the 2nd dose of the covid vaccine. diarrhea. Ebola Screen: No symptoms or risks identified at this time. Initial Sepsis Screen: Does the patient meet any 2 criteria? No. Patient's initial sepsis screen is negative. Does the patient have a suspected source of infection? No. Patient's initial sepsis screen is negative. Risk Assessment: Do you want to hurt yourself or someone else? Patient reports no desire to harm self or others. Onset of symptoms Onset of symptoms was May 28, 2021. 18:43 Method Of Arrival: Ambulatory sv1 18:43 Acuity: BRUCE 3 sv1 18:43 Note triage done by WARNER Ivory. Report given to WARNER Baer. al4 Triage Assessment: 19:37 General: Appears in no apparent distress. Pain: Denies pain. GI: No deficits noted. sv1 22:06 General: Behavior is calm. sv1 Historical: - Allergies: 18:54 QUINOLONES; sv1 18:54 PENICILLINS; sv1 - PMHx: 18:53 Hypertension; PROSTATE CA; sv1 18:54 Atrial Fib; sv1 - Immunization history:: Adult Immunizations up to date, Client reports receiving the 2nd dose of the Covid vaccine, Pneumococcal vaccine is up to date, Flu vaccine is up to date. - Social history:: Smoking status: Patient denies any tobacco usage or history of. Screenin:56 Abuse screen: Denies threats or abuse. Nutritional screening: No deficits noted. sv1 Tuberculosis screening: No symptoms or risk factors identified. 22:03 Fall Risk None identified. sv1 Assessment: 22:03 Reassessment: The patient's lab work is completed. The provider interviewed the sv1 patient. The patient was cleared for discharge to home by the provider. The patient is alert and orien reina.. Vital Signs: 18:43 BP 139 / 65; Pulse 54; Resp 18 S; Temp 98.2; Pulse Ox 94% on R/A; sv1 19:35 BP 142 / 87; Pulse 77; Resp 17; Temp 98.0; Pulse Ox 91% ; sv1 21:38 BP 181 / 70; Pulse 67; Resp 18; Pulse Ox 100% 0 lpm ; sv1 ED Course: 17:25 Patient arrived in ED. ds1 18:22 Abhilash Craven NP is PHCP. pm1 18:22 Andrew Pappas MD is Attending Physician. pm1 18:53 Triage completed. sv1 18:57 Arm band placed on. sv1 19:35 Keyur Bennett, WARNER is Primary Nurse. sv1 19:45 Liver (Hepatic) Function Sent. sv1 19:45 Basic Metabolic Panel Sent. sv1 19:45 Hepatic Function Sent. sv1 19:46 CBC with Diff Sent. sv1 19:46 Lipase Sent. sv1 20:12 CT Abd/Pelvis - IV Contrast Only In Process Unspecified. EDMS 22:03 Patient has correct armband on for positive identification. sv1 22:03 No provider procedures requiring assistance completed. IV discontinued. sv1 Administered Medications: 19:52 Drug: NS 0.9% 500 ml Route: IV; Rate: bolus; Site: right antecubital; sv1 22:02 Follow up: IV Intake: 500ml sv1 22:07 Follow up: IV Intake: 500ml sv1 Intake: 22:02 IV: 500ml; Total: 500ml. sv1 22:07 IV: 500ml; Total: 1000ml. sv1 Outcome: 21:39 Discharge ordered by . pm1 22:03 Discharged to home ambulatory, with family. sv1 22:03 Condition: good 22:03 Discharge instructions given to patient, family. 22:08 Patient left the ED. sv1 Signatures: Dispatcher [employer] EDUT Daysi Shukla ds1 Abhilash Craven NP BAGGAGE INSPECTOR pmLamine Crystal4 Keyur Bennett RN RN sv1 Corrections: (The following items were deleted from the chart) 18 18:53 Allergies: PENICILLINS; 1 1 18 18:53 Allergies: QUINOLONES; 1 1 18 18:53 Home Meds: Lipitor 20 mg Oral tab 1 tab once daily [Inactive]; 1 1 18:53 Home Meds: lisinopril-hydrochlorothiazide 10-12.5 mg Oral tab 1 tab once daily sv1 [Inactive]; 1 18:53 Home Meds: aspirin 81 mg Oral TbEC 1 tab once every other day [Inactive]; 1 1 18:53 Home Meds: Xalatan 0.005 % Opht drop 1 drop once daily [Inactive]; 1 18 18:53 Home Meds: loratadine 10 mg Oral tab 1 tab once daily [Inactive]; 1 18 18:53 Home Meds: Xarelto 20 mg Oral tab 1 tab once daily [Inactive]; 1 18: 18:53 Home Meds: famotidine 40 mg Oral tab 1 tab every 12 hours [Inactive]; 1 1 18:53 Home Meds: gabapentin oral Oral four times a day [Inactive]; 1 1 18 18:53 Home Meds: ranitidine HCl 150 mg Oral tab 2 tabs once daily [Inactive]; 1 1 18:53 PMHx: Atrial Fib; 1 1 19: 18:43 Note triage done by WARNER Ivory al4 al4
[2021-06-03 22:14] VITALS: TEMP 98
[2021-06-03 22:15] VITALS: BP 181/70; O2SAT 100
== END 2021-06-03 22:08 | disposition home or self-care (01) ==
LOC: ER 17:21
DX: R19.7 Diarrhea, unspecified (principal); I10 Essential (primary) hypertension; Z88.0 Allergy status to penicillin; Z88.5 Allergy status to narcotic agent
CPT/HCPCS: 85025; 80048; 36415; 80076; 83690; 74177; 99283; Q9967; J7040